=== PATIENT | male | born 1935 | race Caucasian/White ===

== ENCOUNTER → 2016-10-28 | Outpatient (CLI) | payer OTHER ==
[~2016-10-28] MED LIST: ALBUAER INH; CYNI1000 IM; FINA5TAB PO; FLM4 PO; HYD50 PO; KRIL1CAP7 PO; LISI-461 PO; MONT1TAB3 PO; MULT-190 PO; MULTTAB PO; OMEGCAP2 PO; OMEP20TA PO; PLV75 PO; POLYPOW97 PO; PRED1SUS3 OPL; SIMV40TA4 PO; SYMIN INH; TAMS0.4C59 PO; TEMA-79 PO
[2016-10-28 11:37] LABS: THYROID STIMULATING HORMONE 0.796 uIu/ml (0.300-4.500)
== END | disposition home or self-care (01) ==
LOC: C.LAB1850 10:09
PROVIDERS: ATTEND Internal Medicine Endocrinology, Diabetes & Metabolism
DX: E04.1 Nontoxic single thyroid nodule (principal)

== ENCOUNTER → 2016-11-26 | Outpatient (CLI) | payer OTHER ==
--- NOTE | 2016-11-26 14:50 | DIAGNOSTIC IMAGING REPORT ---
LEFT FOOT MIN 3 VIEWS ROUTINE CLINICAL HISTORY: M79.673 Foot pain trauma COMPARISON: None. DISCUSSION: Oblique slightly distracted fracture midshaft fifth metatarsal. Mild degenerative change of all remaining osseous structures. Small heel spur. Moderate soft tissue edema. IMPRESSION: Oblique moderately distracted fracture fifth metatarsal Electronically signed by: Adam John M.D. 11/26/2016 2:48 PM Dictated Date/Time: 11/26/2016 2:47 PM
== END | disposition home or self-care (01) ==
LOC: C.RAD1850 14:24
PROVIDERS: ATTEND Internal Medicine
DX: M79.673 Pain in unspecified foot (principal); S92.352A Displaced fracture of fifth metatarsal bone, left foot, initial encounter for closed fracture; X58.XXXA Exposure to other specified factors, initial encounter

== ENCOUNTER → 2016-12-04 | Outpatient (CLI) | payer OTHER ==
--- NOTE | 2016-12-04 10:48 | DIAGNOSTIC IMAGING REPORT ---
LEFT FOOT MIN 3 VIEWS CLINICAL HISTORY: Left foot pain COMPARISON: 11/26/2016 DISCUSSION: There is no change in the alignment of the oblique/spiral fracture involving the midshaft of the fifth metatarsal. The distal fragment remains medially displaced x 4.3 mm. There is a small plantar calcaneal spur. There are degenerative changes the level the first metatarsal phalangeal joint. IMPRESSION: No change in alignment of the oblique/spiral fracture involving the midshaft of the fifth metatarsal Electronically signed by: Rayshawn Flaherty M.D. 12/04/2016 10:47 AM Dictated Date/Time: 12/04/2016 10:45 AM
== END | disposition home or self-care (01) ==
LOC: C.RDSM 10:35
PROVIDERS: ATTEND Physical Medicine & Rehabilitation Sports Medicine
DX: R52 Pain, unspecified (principal); S92.352A Displaced fracture of fifth metatarsal bone, left foot, initial encounter for closed fracture; X58.XXXA Exposure to other specified factors, initial encounter

== ENCOUNTER → 2016-12-25 | Outpatient (CLI) | payer OTHER ==
--- NOTE | 2016-12-25 11:58 | DIAGNOSTIC IMAGING REPORT ---
LEFT FOOT MIN 3 VIEWS CLINICAL HISTORY: Left foot pain ACTION COMPARISON: 12/04/2016 DISCUSSION: There is an oblique fracture involving the midshaft of the fifth metatarsal. There is no change in alignment when compared the prior study. Maximal fracture distraction is 6.5 mm. There is early callus formation. The bones are osteopenic. Degenerative changes are present the level the first metatarsal phalangeal joint. IMPRESSION: No change in alignment of the oblique fracture of the fifth metatarsal. There is early callus formation. Electronically signed by: Rayshawn Flaherty M.D. 12/25/2016 11:57 AM Dictated Date/Time: 12/25/2016 11:32 AM
== END | disposition home or self-care (01) ==
LOC: C.RDSM 11:00
PROVIDERS: ATTEND Physician Assistant
DX: S92.352A Displaced fracture of fifth metatarsal bone, left foot, initial encounter for closed fracture (principal); X58.XXXA Exposure to other specified factors, initial encounter

== ENCOUNTER → 2017-01-19 | Outpatient (CLI) | payer OTHER ==
[~2017-01-19] MED LIST changes: +CLOP1TAB15 PO; +LVQ750 PO; +PRED10TA PO
--- NOTE | 2017-01-19 14:29 | DIAGNOSTIC IMAGING REPORT ---
LEFT FOOT MIN 3 VIEWS CLINICAL HISTORY: Left foot FX trauma COMPARISON: 12/25/2016 DISCUSSION: Oblique fracture fifth metatarsal. Position is unchanged compared to the prior study. Very subtle increase in callus formation. Degenerative change throughout all remaining osseous structures. Small heel spur. There is no evidence for soft tissue swelling. IMPRESSION: Oblique fracture fifth metatarsal showing partial interval healing from the prior study. Distraction and alignment are unchanged. Electronically signed by: Adam John M.D. 01/19/2017 2:27 PM Dictated Date/Time: 01/19/2017 2:23 PM
== END | disposition home or self-care (01) ==
LOC: C.RDSM 14:04
PROVIDERS: ATTEND Physician Assistant
DX: S92.902A Unspecified fracture of left foot, initial encounter for closed fracture (principal); X58.XXXA Exposure to other specified factors, initial encounter

== ENCOUNTER → 2017-02-17 | Outpatient (CLI) | payer OTHER ==
--- NOTE | 2017-02-17 10:27 | DIAGNOSTIC IMAGING REPORT ---
LEFT FOOT MIN 3 VIEWS CLINICAL HISTORY: Fracture. COMPARISON: 01/19/2017 DISCUSSION: The bones are osteopenic. There is a healing oblique fracture of the midshaft of the fifth metatarsal, unchanged in alignment when compared the preceding study. The fracture continues to demonstrate 8 mm of maximal displacement. No new fractures are visualized. There is a plantar calcaneal spur. IMPRESSION: No change in the alignment of the healing fifth metatarsal fracture. The fracture continues to demonstrate 8 mm of maximal displacement. Electronically signed by: Rayshawn Flaherty M.D. 02/17/2017 10:26 AM Dictated Date/Time: 02/17/2017 10:24 AM
== END | disposition home or self-care (01) ==
LOC: C.RDSM 10:12
PROVIDERS: ATTEND Physician Assistant
DX: S92.352D Displaced fracture of fifth metatarsal bone, left foot, subsequent encounter for fracture with routine healing (principal); X58.XXXD Exposure to other specified factors, subsequent encounter

== ENCOUNTER 2017-05-16 09:24 | Inpatient (IN) | payer OTHER ==
[~2017-05-16] VITALS: Ht 170.2 cm; Wt 67.2 kg
[2017-05-16] MEDS: SODIUM CHLORIDE 0.9% 1000ML 1,000 ML IV SCH ×2 (02:00→13:47)
[~2017-05-16 09:24] MED LIST changes: -CLOP1TAB15 PO; -CYNI1000 IM; -FLM4 PO; -KRIL1CAP7 PO; -LISI-461 PO; -LVQ750 PO; -PLV75 PO; -PRED10TA PO
[2017-05-16] MEDS ORDERED: SODIUM CHLORIDE 0.9% 1000ML 1,000 ML IV SCH (09:28)
--- NOTE | 2017-05-16 09:43 | EMERGENCY ROOM VISIT NOTE ---
History Report prepared by Jose M: Mayra Fan Under the Supervision of: Dr. Avery Prince D.O. First contact with patient: 09:27 Chief Complaint: STROKE SYMPTOMS Stated Complaint: STROKE SYMPTOMS History of Present Illness The patient is a 82 year old male who presents to the Emergency Room with complaints of persistent stroke like symptoms that started around 0830 this morning. He is accompanied by his son and several other family members. His son reports his Mother called him this morning and told him the patient was suddenly "unable to speak and walk normally". She states his speech became "slurred and garbled", he had right sided weakness and a right sided facial droop. The patient denies any pain but complains of dizziness with head movement. He takes no daily blood thinners. His family reports a past history of hypertension. Source of History: patient, family Onset: 0830 this morning Position: other (global) Timing: other (persistent) Associated Symptoms: + weakness (right sided) Review of Systems See HPI for pertinent positives & negatives. A total of 10 systems reviewed and were otherwise negative. Past Medical & Surgical Medical Problems: (1) Facial droop (2) History of prostate cancer (3) Hypertension Social History Smoking Status: Never Smoker Smokeless Tobacco Use: No Alcohol Use: none Drug Use: none Marital Status: Housing Status: lives with family Occupation Status: retired Current/Historical Medications Scheduled Budesonide/Formoterol Fumarate (Symbicort 160-4.5 Mcg/Act), 2 PUFFS INH BID Finasteride (Proscar), 5 MG PO HS Hydrochlorothiazide (Hydrochlorothiazide), 50 MG PO DAILY Krill Oil (Krill Oil [place]-3), 500 MG PO UD Lisinopril (Lisinopril), 10 MG PO DAILY Montelukast Sodium (Singulair), 10 MG PO HS Multivitamins/Minerals (Mvi With Minerals), 1 TAB PO QAM Ocuvite Preservision (Ocuvite Preservision), 1 TAB PO BID Omeprazole (Omeprazole), 20 MG PO QAM Simvastatin (Zocor), 40 MG PO QPM Tamsulosin HCl (Tamsulosin HCl), 0.4 MG PO DAILY Scheduled PRN Albuterol Sulfate (Proventil Hfa), 1 PUFF INH Q4 PRN for Shortness of Breath Allergies Coded Allergies: Sulfa Antibiotics (Verified Allergy, Intermediate, RASH, 07/02/15) Physical Exam Vital Signs Date Time Temp Pulse Resp B/P (MAP) Pulse Ox O2 Delivery O2 Flow Rate FiO2 05/16/17 11:15 64 20 147/65 98 Room Air 05/16/17 11:05 98 Room Air 05/16/17 11:00 78 20 148/80 98 Room Air 05/16/17 10:45 78 16 127/80 98 05/16/17 10:31 72 137/74 98 05/16/17 10:22 72 20 137/71 98 05/16/17 09:57 59 20 132/83 97 05/16/17 09:55 62 05/16/17 09:25 37.0 57 18 143/75 96 Room Air Physical Exam GENERAL: Patient is awake, alert in no acute distress patient is resting comfortably and appears to be mildly anxious EYES: The conjunctivae are clear. The pupils are round and reactive. EARS, NOSE, MOUTH AND THROAT: The nose is without any evidence of any deformity. Mucous membranes are moist tongue is midline NECK: The neck is nontender and supple. No bruits noted to auscultation. RESPIRATORY: Normal respiratory effort is noted there is no evidence of wheezing rhonchi or rales CARDIOVASCULAR: Regular rate and rhythm noted there no murmurs rubs or gallops normal S1 normal S2 GASTROINTESTINAL: The abdomen is soft. Bowel sounds are present in all quadrants. Abdomen is nontender MUSCULOSKELETAL/EXTREMITIES: There is no evidence of gross deformity full range of motion is noted in the hips and shoulders SKIN: There is no obvious evidence of any rash. There are no petechiae, pallor or cyanosis noted. NEUROLOGIC: Patient is awake alert and oriented x3 Speech was pressured and slurred. Right facial droop noted. Patient had weakness in the right upper and right lower extremity. There was a drift in the right upper extremity. The right side was not flaccid. Medical Decision & Procedures ER Provider Diagnostic Interpretation: Radiology results as stated below per my review and radiologist interpretation: HEAD CT NONCONTRAST CT DOSE: 1311.06 mGy.cm HISTORY: Stroke symptoms. TECHNIQUE: Multiaxial CT images of the head were performed without the use of intravenous contrast. Automated exposure control was utilized for this study. A dose lowering technique was utilized adhering to the principles of ALARA. Comparison: None. Findings: Partially visualized retention cyst within the left maxillary sinus. The mastoid air cells are clear. Punctate calcification within the left basal ganglia. The calvarium and skull base are intact. The ventricles and sulci are within normal limits. There is no mass, hematoma, midline shift, or acute infarct. Impression: No acute intracranial abnormality. Electronically signed by: Thony Taylor M.D. 05/16/2017 9:43 AM CHEST ONE VIEW PORTABLE HISTORY: Stroke symptoms. COMPARISON: Chest 03/12/2015. FINDINGS: Stable masslike thickening within the upper right peritracheal location. This favors a thyroid goiter given the long-term stability. Moderate hiatus hernia, unchanged. The heart is normal in size. The lungs remain hyperexpanded. No focal lung consolidations to suggest pneumonia. No evidence for pulmonary edema. Stable linear scarlike density within the left lung apex. IMPRESSION: No significant change compared to the prior study. No acute process. Electronically signed by: Thony Taylor M.D. 05/16/2017 10:19 AM Laboratory Results 05/16/17 09:28 Red Blood Count 4.03, Mean Corpuscular Volume 88.1, Mean Corpuscular Hemoglobin 28.8, Mean Corpuscular Hemoglobin Concent 32.7, Mean Platelet Volume 10.0, Neutrophils (%) (Auto) 45.4, Lymphocytes (%) (Auto) 45.7, Monocytes (%) (Auto) 6.5, Eosinophils (%) (Auto) 1.8, Basophils (%) (Auto) 0.4, Neutrophils # (Auto) 2.58, Lymphocytes # (Auto) 2.59, Monocytes # (Auto) 0.37, Eosinophils # (Auto) 0.10, Basophils # (Auto) 0.02 05/16/17 09:28 Test 05/16/17 09:28 05/16/17 09:53 05/16/17 11:23 White Blood Count 5.67 K/uL (4.8-10.8) Red Blood Count 4.03 M/uL (4.7-6.1) Hemoglobin 11.6 g/dL (14.0-18.0) Hematocrit 35.5 % (42-52) Mean Corpuscular Volume 88.1 fL (80-100) Mean Corpuscular Hemoglobin 28.8 pg (25-34) Mean Corpuscular Hemoglobin Concent 32.7 g/dl (32-36) Platelet Count 177 K/uL (130-400) Mean Platelet Volume 10.0 fL (7.4-10.4) Neutrophils (%) (Auto) 45.4 % Lymphocytes (%) (Auto) 45.7 % Monocytes (%) (Auto) 6.5 % Eosinophils (%) (Auto) 1.8 % Basophils (%) (Auto) 0.4 % Neutrophils # (Auto) 2.58 K/uL (1.4-6.5) Lymphocytes # (Auto) 2.59 K/uL (1.2-3.4) Monocytes # (Auto) 0.37 K/uL (0.11-0.59) Eosinophils # (Auto) 0.10 K/uL (0-0.5) Basophils # (Auto) 0.02 K/uL (0-0.2) RDW Standard Deviation 48.5 fL (36.4-46.3) RDW Coefficient of Variation 14.9 % (11.5-14.5) Immature Granulocyte % (Auto) 0.2 % Immature Granulocyte # (Auto) 0.01 K/uL (0.00-0.02) Prothrombin Time 10.7 SECONDS (9.0-12.0) Prothromb Time International Ratio 1.0 (0.9-1.1) Activated Partial Thromboplast Time 23.3 SECONDS (21.0-31.0) Partial Thromboplastin Ratio 0.9 Anion Gap 6.0 mmol/L (3-11) Est Creatinine Clear Calc Drug Dose 30.2 ml/min Estimated GFR () 42.0 Estimated GFR (Non- 36.2 BUN/Creatinine Ratio 17.8 (10-20) Calcium Level 8.3 mg/dl (8.5-10.1) Total Creatine Kinase 264 U/L (39-308) Creatine Kinase MB 3.5 ng/ml (0.5-3.6) Creatine Kinase MB Ratio 1.3 (0-3.0) Troponin I < 0.015 ng/ml (0-0.045) Bedside Glucose 111 mg/dl (70-99) Laboratory results per my review. Medications Administered Medications (Trade) Dose Ordered Sig/Sonal Route Start Time Stop Time Status Last Admin Dose Admin Sodium Chloride 1,000 ml @ 50 mls/hr Q20H IV 05/16/17 09:28 05/16/17 12:56 DC 05/16/17 10:06 50 MLS/HR Sodium Chloride 1,000 ml @ 999 mls/hr Q1H1M STAT IV 05/16/17 10:30 05/16/17 11:30 DC 05/16/17 10:30 999 MLS/HR Aspirin (Aspirin Chew) 324 mg NOW STAT PO 05/16/17 10:30 05/16/17 10:31 DC 05/16/17 10:30 324 MG Sodium Chloride 1,000 ml @ 80 mls/hr [id number] IV 05/16/17 11:19 06/15/17 11:18 05/16/17 13:47 80 MLS/HR ECG Indication: weakness Rate (beats per minute): 59 Rhythm: sinus bradycardia Findings: 1st degree AV block, other (LVH by voltage criteria, no acute ST segment abnormalities) Change: no significant change (Increased NM interval, otherwise no change from February 12, 2005) ED Course 0928: The patient was evaluated in room A1. A complete history and physical examination were performed. 0928: NSS 1000 ml @ 50 mls/hr IV. 0950: I discussed the patients case with Dr. Pathak, [facility]. The patient will be further evaluated. 1030: Dr. Pathak states the patient is most likely not a TPA candidate. 1030: Aspirin 324 mg PO, NSS 1000 ml @ 999 mls/hr IV. 1035: I discussed the patients case with Dr. Triana, [facility] Hospitalist. The patient will be further evaluated. 1040: I reevaluated the patient. He is resting comfortably and multiple family members are at the bedside. I discussed my recommendation that he remain in the hospital for further evaluation and management and he and his family verbalized complete understanding and agreement. Medical Decision Prior records/ancillary studies reviewed and summarized above. Nursing notes reviewed. Additional history obtained from the patients family. Differential diagnosis: Etiologies such as metabolic, infection, hypo/hyperglycemia, electrolyte abnormalities, cardiac sources, intracerebral event, toxicologic, neurologic, as well as others were entertained. The patient is an 82-year-old male who presented to the emergency department with family members with a physical exam consistent with an acute CVA. The patient arrives through triage. The patient was made a stroke alert immediately. The patient was eating breakfast with his significant other when he started having difficulty moving his right side and she noticed that his speech was garbled. She immediately called her son. The patient arrived at the emergency Department through triage and was placed directly into room A1. The patient's initial CAT scan did not reveal any acute hemorrhagic changes and there is no acute disease noted on the initial CT. We discussed the use of TPA with the patient and his family members and they were agreeable to this however the patient's symptoms started to improve very rapidly. He was reevaluated multiple times. His NIH stroke score significantly improved. For this reason the family members asked me to discuss the case with the tele stroke neurologist who quickly evaluated the patient and agreed that the patient would not be a good candidate for TPA for multiple reasons including his history of cancer in the past. The patient received IV fluids and aspirin in the emergency department. I discussed the patient's laboratory and radiographic studies with him and his family members. I discussed his case with the on-call [facility] hospitalist. They've agreed to evaluate the patient in the emergency department for further management and disposition. Medication Reconcilliation Current Medication List: was personally reviewed by me Blood Pressure Screening Patient's blood pressure: Elevated blood pressure Blood pressure disposition: Elevated BP felt to be situational, Referred to PCP Consults Time Called: 0935 Consulting Physician: Dr. Pathak, [facility] Returned Call: [phone] I discussed the patients case with Dr. Pathak, [facility]. The patient will be further evaluated. Additional Consults: Time Called: 1030 Consulted Physician: Dr. Triana, [facility] Hospitalist Returned Call: [phone] Additional Comments: I discussed the patients case with Dr. Triana [facility] Hospitalist. The patient will be further evaluated. Impression Primary Impression: CVA (cerebral vascular accident) Additional Impression: Dehydration Critical Care I have personally spent greater than 35 minutes of critical care time in the direct management of this patient. This includes bedside care, interpretation of diagnostic studies, and testing, discussion with consultants, patient, and family members, and other required patient management activities. This 35 minutes is in excess of all separately billable procedures. Scribe Attestation The scribe's documentation has been prepared under my direction and personally reviewed by me in its entirety. I confirm that the note above accurately reflects all work, treatment, procedures, and medical decision making performed by me. Departure Information Dispostion Being Evaluated By Hospitalist Referrals Parveen Lopez M.D. (PCP) Patient Instructions My [facility] Problem Qualifiers Primary Impression: CVA (cerebral vascular accident) CVA mechanism: unspecified Qualified Codes: I63.9 - Cerebral infarction, unspecified
[2017-05-16] MEDS ORDERED: SET 2260-0500 IV ONE (09:45)
[2017-05-16] MEDS ORDERED: RECOMBINANT IV SCH ×2 (09:45→10:00)
[2017-05-16] MEDS ORDERED: ALTEPLASE IV SCH ×2 (09:45→10:00)
[2017-05-16 10:03] LABS: BASO % 0.4 %; BASO ABS # 0.02 K/uL (0-0.2); COMPLETE YES; EOS % 1.8 %; HEMATOCRIT 35.5 % (42-52); IG% 0.2 %; LYMPH % 45.7 %; LYMPH ABS # 2.59 K/uL (1.2-3.4); MEAN CELL VOLUME 88.1 fL (80-100); MEAN CORPUSCULAR HEMOGLOBIN 28.8 pg (25-34); MEAN CORPUSCULAR HGB CONC 32.7 g/dl (32-36); MONO % 6.5 %; NEUT % 45.4 %; PLATELET COUNT 177 K/uL (130-400); RED BLOOD COUNT 4.03 M/uL (4.7-6.1); WHITE BLOOD COUNT 5.67 K/uL (4.8-10.8)
[2017-05-16 10:12] LABS: PARTIAL THROMBOPLASTIN RATIO 0.9; PROTHROMBIN TIME (PATIENT) 10.7 SECONDS (9.0-12.0)
[2017-05-16] MEDS ORDERED: KRIL1CAP7 PO (10:17)
[2017-05-16] MEDS ORDERED: FLM4 PO (10:17)
[2017-05-16] MEDS ORDERED: ALBUAER INH (10:17)
[2017-05-16] MEDS ORDERED: LISI-461 PO (10:17)
--- NOTE | 2017-05-16 10:20 | DIAGNOSTIC IMAGING REPORT ---
CHEST ONE VIEW PORTABLE HISTORY: Stroke symptoms. COMPARISON: Chest 03/12/2015. FINDINGS: Stable masslike thickening within the upper right peritracheal location. This favors a thyroid goiter given the long-term stability. Moderate hiatus hernia, unchanged. The heart is normal in size. The lungs remain hyperexpanded. No focal lung consolidations to suggest pneumonia. No evidence for pulmonary edema. Stable linear scarlike density within the left lung apex. IMPRESSION: No significant change compared to the prior study. No acute process. Electronically signed by: Thony Taylor M.D. 05/16/2017 10:19 AM Dictated Date/Time: 05/16/2017 10:18 AM
[2017-05-16 10:23] LABS: BLOOD UREA NITROGEN 30 mg/dl (7-18); BUN/CREATININE RATIO 17.8 (10-20); CALCIUM 8.3 mg/dl (8.5-10.1); CARBON DIOXIDE 30 mmol/L (21-32); CHLORIDE 107 mmol/L (98-107); GLUCOSE 127 mg/dl (70-99); POTASSIUM 3.7 mmol/L (3.5-5.1); SODIUM 143 mmol/L (136-145)
[2017-05-16 10:28] LABS: CKMB/CK RATIO 1.3 (0-3.0)
[2017-05-16] MEDS ORDERED: SODIUM CHLORIDE 0.9% 1000ML 1,000 ML IV STA (10:30)
[2017-05-16] MEDS ORDERED: ASPIRIN 81 MG CHEW PO STA (10:30)
[2017-05-16 11:05] VITALS: O2SAT 98; Ht 170.2 cm; Wt 67.2 kg
[2017-05-16] MEDS ORDERED: MAGNESIUM HYDROXIDE SUSP 30 ML UDC PO PRN (11:30)
[2017-05-16] MEDS ORDERED: IV FLUIDS COMPLETED PRN (11:30)
[2017-05-16] MEDS ORDERED: PHARMACIST DISCHARGE MED REC CONSULT PRN (11:30)
[2017-05-16] MEDS ORDERED: ONDANSETRON INJ 2 MG/ML 2 ML VIAL IV PRN (11:30)
[2017-05-16] MEDS ORDERED: OPTIRAY 320 IV PRN (11:30)
[2017-05-16] MEDS ORDERED: ACETAMINOPHEN 325 MG TAB PO PRN (11:30)
--- NOTE | 2017-05-16 11:58 | History and Physical ---
History & Physical Date & Time of Service: May 16, 2017 at 11:44 Chief Complaint: Stroke Symptoms Primary Care Physician: Parveen Lopez M.D. History of Present Illness Source: patient, family 82 y/o M who was brought to the ED by his family for concern of possible stroke. Pt states he has been in his usual health until around 830am today when he had sudden onset of R sided weakness/numbness and inability to speak clearly with slowed mentation while he was having breakfast. Pt states "my arm and leg was like they were ". He could not pick his arm up or use his leg at all. He felt like his speech was slow and garbled. He alerted his who called his son and his son came to bring him to the ED. He states that prior to the sudden onset of these sx, he had no issues. Yesterday he was able to do all of his usual activities and slept well. Pt states he works outside in his garden all of the time, but drinks no water. "I couldn't tell you the last time I had a glass of water." Pt states he has never had anything like this happen prior. At present, pt states he feels like his R UE/LE are back to their usual. He does still feel like his speech is a bit off and that it is taking him longer to form thoughts and sentences, but this is also improved from [employer]. On arrival, telemed was alerted to determine if tpa was needed, however as sx started to resolve, it was determined that tpa was not indicated. Pt denies fever, SOB, chest pain, abd pain, n/v/c/d, LE pain or swelling. He has been eating well other than breakfast this AM which was an issue due to difficulty using his mouth properly. Past Medical/Surgical History HTN GERD Hyperlipidemia Asthma ?? hx of prostate cancer. Pt states he had multiple elevated PSA levels in the 6-8 range. This lead to bx x2 about 15 yrs ago that were both neg. He follows with Dr. Rosado for this. Hx of renal mass that was tx with robotic cryotherapy Hx of skin cancer, nasal, s/p removal Social History Smoking Status: Never Smoker Smokeless Tobacco Use: No Alcohol Use: none Drug Use: none Marital Status: Occupational Status: retired Immunizations History of Influenza Vaccine: Yes Influenza Vaccine Date: Aug 30, 2013 History of Tetanus Vaccine?: Unknown History of Pneumococcal: Yes History of Hepatitis B Vaccine: No Multi-Drug Resistant Organisms History of MDRO: No Allergies Coded Allergies: Sulfa Antibiotics (Verified Allergy, Intermediate, RASH, 07/02/15) Home Medications Scheduled Budesonide/Formoterol Fumarate (Symbicort 160-4.5 Mcg/Act), 2 PUFFS INH BID Finasteride (Proscar), 5 MG PO HS Hydrochlorothiazide (Hydrochlorothiazide), 50 MG PO DAILY Krill Oil (Krill Oil [place]-3), 500 MG PO UD Lisinopril (Lisinopril), 10 MG PO DAILY Montelukast Sodium (Singulair), 10 MG PO HS Multivitamins/Minerals (Mvi With Minerals), 1 TAB PO QAM Ocuvite Preservision (Ocuvite Preservision), 1 TAB PO BID Omeprazole (Omeprazole), 20 MG PO QAM Simvastatin (Zocor), 40 MG PO QPM Tamsulosin HCl (Tamsulosin HCl), 0.4 MG PO DAILY Scheduled PRN Albuterol Sulfate (Proventil Hfa), 1 PUFF INH Q4 PRN for Shortness of Breath Review of Systems Reviewed and neg Physical Exam Vital Signs Date Time Temp Pulse Resp B/P (MAP) Pulse Ox O2 Delivery O2 Flow Rate FiO2 05/16/17 11:15 64 20 147/65 98 Room Air 05/16/17 11:05 98 Room Air 05/16/17 11:00 78 20 148/80 98 Room Air 05/16/17 10:45 78 16 127/80 98 05/16/17 10:31 72 137/74 98 05/16/17 10:22 72 20 137/71 98 05/16/17 09:57 59 20 132/83 97 05/16/17 09:55 62 05/16/17 09:25 37.0 57 18 143/75 96 Room Air General Appearance: WD/WN, no apparent distress Head: normocephalic, atraumatic Eyes: normal inspection, PERRL, EOMI ENT: hearing grossly normal Neck: supple Respiratory/Chest: normal breath sounds, no respiratory distress Cardiovascular: regular rate, rhythm, no edema, normal peripheral pulses Abdomen/GI: non tender, soft Extremities/Musculoskelatal: no calf tenderness, no pedal edema Neurologic/Psych: 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, alert, normal mood/affect, oriented x 3, + pertinent finding (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, LE strength against resistance 5/5 b/l although very slight weakness in the R) Skin: normal color, warm/dry Diagnostics Laboratory Results Results Past 24 Hours Test 05/16/17 09:28 05/16/17 09:53 05/16/17 11:23 Range/Units White Blood Count 5.67 4.8-10.8 K/uL Red Blood Count 4.03 4.7-6.1 M/uL Hemoglobin 11.6 14.0-18.0 g/dL Hematocrit 35.5 42-52 % Mean Corpuscular Volume 88.1 80-100 fL Mean Corpuscular Hemoglobin 28.8 25-34 pg Mean Corpuscular Hemoglobin Concent 32.7 32-36 g/dl Platelet Count 177 130-400 K/uL Mean Platelet Volume 10.0 7.4-10.4 fL Neutrophils (%) (Auto) 45.4 % Lymphocytes (%) (Auto) 45.7 % Monocytes (%) (Auto) 6.5 % Eosinophils (%) (Auto) 1.8 % Basophils (%) (Auto) 0.4 % Neutrophils # (Auto) 2.58 1.4-6.5 K/uL Lymphocytes # (Auto) 2.59 1.2-3.4 K/uL Monocytes # (Auto) 0.37 0.11-0.59 K/uL Eosinophils # (Auto) 0.10 0-0.5 K/uL Basophils # (Auto) 0.02 0-0.2 K/uL RDW Standard Deviation 48.5 36.4-46.3 fL RDW Coefficient of Variation 14.9 11.5-14.5 % Immature Granulocyte % (Auto) 0.2 % Immature Granulocyte # (Auto) 0.01 0.00-0.02 K/uL Prothrombin Time 10.7 9.0-12.0 SECONDS Prothromb Time International Ratio 1.0 0.9-1.1 Activated Partial Thromboplast Time 23.3 21.0-31.0 SECONDS Partial Thromboplastin Ratio 0.9 Sodium Level 143 136-145 mmol/L Potassium Level 3.7 3.5-5.1 mmol/L Chloride Level 107 98-107 mmol/L Carbon Dioxide Level 30 21-32 mmol/L Anion Gap 6.0 3-11 mmol/L Blood Urea Nitrogen 30 7-18 mg/dl Creatinine 1.70 0.60-1.40 mg/dl Est Creatinine Clear Calc Drug Dose 30.2 ml/min Estimated GFR () 42.0 Estimated GFR (Non- 36.2 BUN/Creatinine Ratio 17.8 10-20 Random Glucose 127 70-99 mg/dl Calcium Level 8.3 8.5-10.1 mg/dl Total Creatine Kinase 264 39-308 U/L Creatine Kinase MB 3.5 0.5-3.6 ng/ml Creatine Kinase MB Ratio 1.3 0-3.0 Troponin I < 0.015 0-0.045 ng/ml Bedside Glucose 111 70-99 mg/dl Diagnostic Radiology CT head neg for acute CXR normal Impression Assessment and Plan 82 y/o M who was admitted for observation on 05/16 for stroke like sx Stroke like sx: CVA vs TIA vs cardiac arrhythmia Likely TIA given quick resolution Slightly nathaniel on presentation, since resolved CT head neg for acute tpa not indication MRI, CTA, ECHO pending TSH, B12, folate, lipids, A1c pending Takes statin at baseline Add aspirin ARF: baseline appears to be around 1.3, likely dehydration given hx of consistent outdoor work with no water intake Will hold lisinopril, and HCTZ for now Hydralazine q6h for now Monitor on IVF HTN: meds as above Asthma: continue home meds GERD: continue home meds Other: Full code, although pt is quite clear that he does not want prolonged mechanical life support. Family is present during this discussion and agrees. 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 Y/N: Yes Risk Level: Low
[2017-05-16] MEDS ORDERED: KRILL OIL 500 MG PO SCH (12:00)
[2017-05-16] MEDS ORDERED: ALBUTEROL HFA 8 GM INHALER INH PRN (12:00)
[2017-05-16 12:13] LABS: URINE APPEARANCE CLEAR (CLEAR); URINE BILIRUBIN NEG (NEG); URINE COLOR YELLOW; URINE NITRITE NEG (NEG); URINE SPECIFIC GRAVITY 1.018 (1.000-1.030); UROBILINOGEN NEG (NEG); ZZUR CULT IF INDIC CLEAN CATCH NO
[2017-05-16 12:18] LABS: MANUAL MICROSCOPIC REQUIRED? NO; REVIEW REQ? NO
--- NOTE | 2017-05-16 12:38 | DIAGNOSTIC IMAGING REPORT ---
HEAD CTA HISTORY: Stroke symptoms. TECHNIQUE: Multiaxial CT images of the head were performed after the intravenous administration of contrast to evaluate the major cerebral vessels. Maximum intensity projection images were also obtained. A dose lowering technique was utilized adhering to the principles of ALARA. COMPARISON: Head CT 05/16/2017. FINDINGS: Visualized intracranial internal carotid arteries, distal vertebral arteries, and basilar artery are widely patent. There is no significant stenosis, occlusion, or aneurysm seen within the bilateral ACAs, MCAs, or adobe developer. IMPRESSION: No significant stenosis, occlusion, or aneurysm within the [place] of [place]. Electronically signed by: Thony Taylor M.D. 05/16/2017 12:36 PM Dictated Date/Time: 05/16/2017 12:32 PM
--- NOTE | 2017-05-16 12:44 | DIAGNOSTIC IMAGING REPORT ---
NECK CTA HISTORY: Stroke like symptoms. TECHNIQUE: Multiaxial CT images of the neck were performed following the intravenous administration of contrast to evaluate the major cervical vessels. Maximum intensity projection images were also obtained. All measurements were calculated based on NASCET criteria. A dose lowering technique was utilized adhering to the principles of ALARA. COMPARISON STUDY: None. FINDINGS: There is a large and heterogeneous thyroid gland consistent with a goiter area this demonstrates substernal extension on the right with left deviation of the trachea. No significant tracheal compression. This goiter results in splaying of the right brachiocephalic and left carotid/subclavian arteries. However, the aortic arch and proximal great vessels are widely patent. There is no significant stenosis, occlusion, or dissection identified within the bilateral common carotid, internal carotid, or vertebral arteries. Minimal calcified plaque within the left carotid bulb. No significant right carotid plaque formation. There is lateral displacement of the left common carotid artery due to the thyroid goiter. There is a partially imaged large bleb within the left upper lobe with an adjacent bandlike area of consolidation. This consolidation favors atelectasis. This is similar dating back to a 2015 chest x-ray IMPRESSION: No significant stenosis, occlusion, or dissection identified within the carotid or vertebral arteries. Large thyroid goiter. Electronically signed by: Thony Taylor M.D. 05/16/2017 12:43 PM Dictated Date/Time: 05/16/2017 12:37 PM
[2017-05-16 13:25] VITALS: BP 144/64; PULSE 73; TEMP 36.8; O2SAT 93
[2017-05-16] MEDS: HydrALAZINE HCL 20 MG/ML VIAL IV. SCH ×2 (13:46→18:00)
[2017-05-16] MEDS ORDERED: LORAZEPAM 2 MG/ML 1 ML VIAL ONE (14:38)
[2017-05-16] MEDS ORDERED: LORAZEPAM 2 MG/ML 1 ML VIAL IV SCH (14:45)
[2017-05-16] MEDS ORDERED: NURSING VERBAL MED ORDER ONE ×2 (14:45→20:15)
[2017-05-16 15:55] VITALS: BP 147/75; PULSE 79; TEMP 36.7; O2SAT 95
--- NOTE | 2017-05-16 16:59 | DIAGNOSTIC IMAGING REPORT ---
MRI OF THE BRAIN WITHOUT AND WITH IV CONTRAST CLINICAL HISTORY: Stroke COMPARISON STUDY: Head CT and CTA of the head May 16, 2017. TECHNIQUE: Utilizing a 1.5 Rakel magnet and dedicated coil, multiplanar, multiecho imaging of the brain was performed pre and postcontrast administration. IV administration of 6.7 mL of Gadavist contrast was uneventful. FINDINGS: This exam is mildly compromised by motion artifact. There is a 1.4 x 0.8 cm focus of mild increased signal within the left anterior aspect of the elizabeth shown on axial image 9 of 46 of the diffusion-weighted sequence. There is corresponding hypointensity on the ADC map. There is at most minimal signal abnormality on the T2-weighted sequence. This suggests an acute to subacute infarct. No acute intracranial hemorrhage, midline shift or mass effect is present. Ventricular system is unremarkable. Basilar cisterns are patent. There are no extra-axial collections. No intracranial mass or pathologic enhancement is identified. A left maxillary sinus mucous retention cyst is noted. Orbits are unremarkable. Flow-voids for the major intracranial vessels are present. IMPRESSION: 1. 1.4 x 0.8 cm focus of mildly increased signal within the left anterior aspect of the elizabeth on the diffusion-weighted sequence which suggests an acute to subacute infarct. No hemorrhage or mass effect. 2. Study mildly compromised by motion artifact. 3. Scattered white matter T2 hyperintense foci suggestive of small vessel disease. Electronically signed by: Nabeel Killian M.D. 05/16/2017 4:58 PM Dictated Date/Time: 05/16/2017 4:51 PM
[2017-05-16] MEDS ORDERED: CLOPIDOGREL BISULFATE 300 MG TAB PO STA (17:08)
[2017-05-16 18:26] VITALS: BP 127/77; PULSE 71; TEMP 36.9; O2SAT 96
[2017-05-16] MEDS: CEROVITE ADV FORMULA TAB PO SCH (20:07)
[2017-05-16] MEDS: SIMVASTATIN 40 MG TAB PO SCH (20:07)
[2017-05-16] MEDS: FINASTERIDE 5 MG TAB PO SCH (20:08)
[2017-05-16] MEDS: MONTELUKAST SOD 10 MG TAB PO SCH (20:08)
[2017-05-16] MEDS: FAMOTIDINE 20 MG TAB PO SCH (20:08)
[2017-05-16] MEDS ORDERED: HydrALAZINE HCL 20 MG/ML VIAL IV. PRN (20:15)
[2017-05-16] MEDS: BUDESONIDE/FORMOTEROL FUMARATE 160/4.5 60 PUFFS/INHALER INH SCH (21:06)
[2017-05-16 23:37] VITALS: BP 159/73; PULSE 62; TEMP 36.7; O2SAT 96
[2017-05-17] VITALS (7 sets, daily range): BP systolic 119–174; BP diastolic 70–90; PULSE 62–95; TEMP 36.8–36.9; O2SAT 95–97
[2017-05-17 06:40] LABS: BASO % 0.5 %; BASO ABS # 0.03 K/uL (0-0.2); COMPLETE YES; EOS % 1.6 %; HEMATOCRIT 39.7 % (42-52); LYMPH % 23.9 %; MEAN CELL VOLUME 86.7 fL (80-100); MEAN CORPUSCULAR HEMOGLOBIN 27.5 pg (25-34); MEAN CORPUSCULAR HGB CONC 31.7 g/dl (32-36); MONO % 7.8 %; NEUT % 66.2 %; PLATELET COUNT 199 K/uL (130-400); RED BLOOD COUNT 4.58 M/uL (4.7-6.1); WHITE BLOOD COUNT 6.27 K/uL (4.8-10.8)
[2017-05-17 06:43] LABS: ESTIMATED AVERAGE GLUCOSE 114 mg/dl; HA1C FLAG Normal (Normal)
[2017-05-17 07:15] LABS: BUN/CREATININE RATIO 13.5 (10-20); CALCIUM 8.9 mg/dl (8.5-10.1); CREATININE 1.4 mg/dl (0.60-1.40); POTASSIUM 3.7 mmol/L (3.5-5.1)
[2017-05-17 07:22] LABS: CHOLESTEROL/HDL RATIO 1.9; THYROID STIMULATING HORMONE 1.55 uIu/ml (0.300-4.500)
[2017-05-17] MEDS ORDERED: CEROVITE ADV FORMULA TAB PO SCH (09:00)
[2017-05-17] MEDS: CEROVITE ADV FORMULA TAB PO SCH ×2 (09:00→20:36)
--- NOTE | 2017-05-17 09:00 | Medical Student: [facility] ---
Med Student History & Physical Date & Time of Service: May 17, 2017 at 08:56 Chief Complaint: Facial Droop Primary Care Physician: Parveen Lopez M.D. History of Present Illness Source: patient, clinic records, hospital records 82 year old male who presented to the ED yesterday with a chief complaint of right sided weakness and speech changes. He states that when he woke up he was feeling fine and then a hour or so later sat down to eat breakfast when he felt dizzy and unable to move his right arm. He tried to get up but was unable to move his right leg. Then tried to call out to his but was unable to get his words out. He denies any numbness, tingling, pain, or loss of sensation anywhere. He has not been sick recently and has never had any such symptoms before. He denies any vision changes, hearing loss, fever, chills, nausea, vomiting, loss of consciousness, or weight loss. He is currently being treated for hypertension and states that they just changed his medications but he is following his regimen. Patient is right handed. Today his symptoms have improved but he is still unable to extend or use his wrist and still has some over all weakness in upper & lower extremities as well as face. He still has some dysarthria, although he states that it is better today than yesterday. Past Medical/Surgical History Past Medical History: (1) CVA (cerebral vascular accident) Status: Acute (2) Hypertension Status: Chronic (3) GERD Status: Chronic (4) Hyperlipidemia Status: Chronic (5) Asthma Status: Chronic Past Surgical History: Robotic Cryotherapy for renal mass removal Removal of nasal skin cancer Family History Mother at 90 and Father at 91. Neither had any medical conditions. No significant family history in siblings or children. 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 He denies any history of smoking, alcohol, or recreational drug use. Patient lives with his . Smoking Status: Never Smoker Smokeless Tobacco Use: No Alcohol Use: none Drug Use: none Marital Status: Occupational Status: retired Immunizations History of Influenza Vaccine: Yes Influenza Vaccine Date: Aug 30, 2013 History of Tetanus Vaccine?: Unknown History of Pneumococcal: Yes History of Hepatitis B Vaccine: No Allergies Coded Allergies: Sulfa Antibiotics (Verified Allergy, Intermediate, RASH, 9/29/15) Medications Albuterol Sulfate (Proventil Hfa), 1 PUFF INH Q4 PRN for Shortness of Breath Budesonide/Formoterol Fumarate (Symbicort 160-4.5 Mcg/Act), 2 PUFFS INH BID Finasteride (Proscar), 5 MG PO HS Hydrochlorothiazide (Hydrochlorothiazide), 50 MG PO DAILY Krill Oil (Krill Oil Leonardo-3), 500 MG PO UD Lisinopril (Lisinopril), 10 MG PO DAILY Montelukast Sodium (Singulair), 10 MG PO HS Multivitamins/Minerals (Mvi With Minerals), 1 TAB PO QAM Ocuvite Preservision (Ocuvite Preservision), 1 TAB PO BID Omeprazole (Omeprazole), 20 MG PO QAM Simvastatin (Zocor), 40 MG PO QPM Tamsulosin HCl (Tamsulosin HCl), 0.4 MG PO DAILY Review of Systems Constitutional: No fever, No chills, No sweats, No weight loss Eyes: No worsening of vision ENT: No hearing loss Respiratory: No shortness of breath Cardiovascular: No chest pain Abdomen: No pain, No nausea, No vomiting Neurologic: + paralysis (Right upper & lower extremity, right face), + weakness (Right upper & lower extremity, Right face), No memory loss, No numbness/ tingling Physical Exam Vital Signs (24 Hours) Date Time Temp Pulse Resp B/P (MAP) Pulse Ox O2 Delivery O2 Flow Rate FiO2 05/17/17 07:42 36.8 72 19 157/72 (100) 95 Room Air 05/17/17 04:10 36.9 62 18 156/78 (104) 95 Room Air 05/17/17 04:00 Room Air 05/16/17 23:59 Room Air 05/16/17 23:37 36.7 62 20 159/73 (101) 96 Room Air 05/16/17 20:00 Room Air 05/16/17 18:26 36.9 71 20 127/77 (94) 96 05/16/17 16:00 Room Air 05/16/17 15:55 36.7 79 18 147/75 (99) 95 Room Air 05/16/17 13:25 36.8 73 18 144/64 (90) 93 Room Air 05/16/17 12:10 74 05/16/17 11:45 80 18 142/69 99 Room Air 05/16/17 11:15 64 20 147/65 98 Room Air 05/16/17 11:05 98 Room Air 05/16/17 11:00 78 20 148/80 98 Room Air 05/16/17 10:45 78 16 127/80 98 05/16/17 10:31 72 137/74 98 05/16/17 10:22 72 20 137/71 98 05/16/17 09:57 59 20 132/83 97 05/16/17 09:55 62 05/16/17 09:25 37.0 57 18 143/75 96 Room Air General Appearance: WD/WN, no apparent distress Head: normocephalic, atraumatic Eyes: PERRL Respiratory/Chest: lungs clear Cardiovascular: regular rate, rhythm Neurologic/Psych: alert, oriented x 3, + abnormal cerebellar tests, + abnormal data processing specialist II-XII, + facial droop, + motor weakness Neurological Exam: Mental Status Patient is oriented to person, place, and time. He is alert and able to follow commands and answer questions. Cranial Nerves CN I- Not tested CN II-Visual mccain are intact, PERRL. Funduscopic exam is unremarkable. CN III, IV, -extraocular movements are intact CN V-facial sensation intact in frontal, maxillary, and mandibular area CN VII-There is slight facial droop in the right lip area. CN VIII-hearing intact bilaterally CN IX, X-palate raises symmetrically when he says "ah" CN XI-able to shrug shoulders and turn head against resistance. CN XII-tongue protrudes to midline and can push against resistance. Sensory Able to feel touch and temperature bilaterally in both upper and lower extremities vibration intact bilaterally in both upper and lower extremities Motor 5/5 left upper extremity 3/5 right upper extremity (proximal muscles) and 2/5 distal muscles 5/5 left lower extremity 3/5 right lower extremity Reflex: R Brachioradialis: 3+ L Brachioradialis: 2+ R Biceps: 3+ L Biceps: 2+ R Triceps: 3+ L Triceps: 2+ R Patellar: 3+ L Patellar: 2+ R Achilles: 3+ L Achilles: 2+ Babinski: absent bilaterally Cerebellar Right heel to rodriges displayed some dysmetria. Right finger to nose displayed bradykinesia and dysmetria Left finger to finger to nose and heel to rodriges was normal. Unable to do rapid alternating movements on the right but normal on the left. Gait not tested due to patient not being ambulatory. Diagnostics Laboratory Results Results Past 24 Hours Test 05/16/17 09:28 05/16/17 09:53 05/16/17 12:03 05/16/17 17:41 Range/Units White Blood Count 5.67 4.8-10.8 K/uL Red Blood Count 4.03 4.7-6.1 M/uL Hemoglobin 11.6 14.0-18.0 g/dL Hematocrit 35.5 42-52 % Mean Corpuscular Volume 88.1 80-100 fL Mean Corpuscular Hemoglobin 28.8 25-34 pg Mean Corpuscular Hemoglobin Concent 32.7 32-36 g/dl Platelet Count 177 130-400 K/uL Mean Platelet Volume 10.0 7.4-10.4 fL Neutrophils (%) (Auto) 45.4 % Lymphocytes (%) (Auto) 45.7 % Monocytes (%) (Auto) 6.5 % Eosinophils (%) (Auto) 1.8 % Basophils (%) (Auto) 0.4 % Neutrophils # (Auto) 2.58 1.4-6.5 K/uL Lymphocytes # (Auto) 2.59 1.2-3.4 K/uL Monocytes # (Auto) 0.37 0.11-0.59 K/uL Eosinophils # (Auto) 0.10 0-0.5 K/uL Basophils # (Auto) 0.02 0-0.2 K/uL RDW Standard Deviation 48.5 36.4-46.3 fL RDW Coefficient of Variation 14.9 11.5-14.5 % Immature Granulocyte % (Auto) 0.2 % Immature Granulocyte # (Auto) 0.01 0.00-0.02 K/uL Prothrombin Time 10.7 9.0-12.0 SECONDS Prothromb Time International Ratio 1.0 0.9-1.1 Activated Partial Thromboplast Time 23.3 21.0-31.0 SECONDS Partial Thromboplastin Ratio 0.9 Sodium Level 143 136-145 mmol/L Potassium Level 3.7 3.5-5.1 mmol/L Chloride Level 107 98-107 mmol/L Carbon Dioxide Level 30 21-32 mmol/L Anion Gap 6.0 3-11 mmol/L Blood Urea Nitrogen 30 7-18 mg/dl Creatinine 1.70 0.60-1.40 mg/dl Est Creatinine Clear Calc Drug Dose 30.2 ml/min Estimated GFR () 42.0 Estimated GFR (Non- 36.2 BUN/Creatinine Ratio 17.8 10-20 Random Glucose 127 70-99 mg/dl Calcium Level 8.3 8.5-10.1 mg/dl Total Creatine Kinase 264 39-308 U/L Creatine Kinase MB 3.5 0.5-3.6 ng/ml Creatine Kinase MB Ratio 1.3 0-3.0 Troponin I < 0.015 < 0.015 0-0.045 ng/ml Bedside Glucose 111 70-99 mg/dl Urine Color YELLOW Urine Appearance CLEAR CLEAR Urine pH 7.0 4.5-7.5 Urine Specific [place] 1.018 1.000-1.030 Urine Protein NEG NEG Urine Glucose (UA) NEG NEG Urine Ketones NEG NEG Urine Occult Blood NEG NEG Urine Nitrite NEG NEG Urine Bilirubin NEG NEG Urine Urobilinogen NEG NEG Urine Leukocyte Esterase NEG NEG Vitamin B12 Level 308 211-911 pg/mL Folate > 24.00 >5.38 ng/mL Test 05/17/17 01:18 05/17/17 06:22 Range/Units Troponin I < 0.015 0-0.045 ng/ml White Blood Count 6.27 4.8-10.8 K/uL Red Blood Count 4.58 4.7-6.1 M/uL Hemoglobin 12.6 14.0-18.0 g/dL Hematocrit 39.7 42-52 % Mean Corpuscular Volume 86.7 80-100 fL Mean Corpuscular Hemoglobin 27.5 25-34 pg Mean Corpuscular Hemoglobin Concent 31.7 32-36 g/dl Platelet Count 199 130-400 K/uL Mean Platelet Volume 10.0 7.4-10.4 fL Neutrophils (%) (Auto) 66.2 % Lymphocytes (%) (Auto) 23.9 % Monocytes (%) (Auto) 7.8 % Eosinophils (%) (Auto) 1.6 % Basophils (%) (Auto) 0.5 % Neutrophils # (Auto) 4.15 1.4-6.5 K/uL Lymphocytes # (Auto) 1.50 1.2-3.4 K/uL Monocytes # (Auto) 0.49 0.11-0.59 K/uL Eosinophils # (Auto) 0.10 0-0.5 K/uL Basophils # (Auto) 0.03 0-0.2 K/uL RDW Standard Deviation 47.4 36.4-46.3 fL RDW Coefficient of Variation 14.8 11.5-14.5 % Immature Granulocyte % (Auto) 0.0 % Immature Granulocyte # (Auto) 0.00 0.00-0.02 K/uL Sodium Level 144 136-145 mmol/L Potassium Level 3.7 3.5-5.1 mmol/L Chloride Level 110 98-107 mmol/L Carbon Dioxide Level 26 21-32 mmol/L Anion Gap 8.0 3-11 mmol/L Blood Urea Nitrogen 19 7-18 mg/dl Creatinine 1.40 0.60-1.40 mg/dl Est Creatinine Clear Calc Drug Dose 36.7 ml/min Estimated GFR () 53.1 Estimated GFR (Non- 45.8 BUN/Creatinine Ratio 13.5 10-20 Random Glucose 87 70-99 mg/dl Estimated Average Glucose 114 mg/dl Hemoglobin A1c 5.6 4.5-5.6 % Calcium Level 8.9 8.5-10.1 mg/dl Triglycerides Level 104 0-150 mg/dl Cholesterol Level 185 0-200 mg/dl HDL Cholesterol 99 mg/dl LDL Cholesterol, Calculated 65 mg/dl VLDL Cholesterol, Calculated 21 mg/dl Cholesterol/HDL Ratio 1.9 Thyroid Stimulating Hormone (TSH) 1.550 0.300-4.500 uIu/ml Diagnostic Radiology MRI: 1. Infarct to the left basilar pontine area. 2. Evidence of small vessel disease CT Head: unremarkable, no acute changes CTA of the neck: unremarkable CTA of the Neck: No significant vessel stenosis, occlusion, or dissection. Large thyroid goiter. CXR normal Impression Assessment and Plan Assessment: Right hemiparesis and dysarthria 82 year old male with chronic hypertension presents with right sided hemiparesis and dysarthria. Although he displays motor weakness of the right face, lower extremities, and arm, his right distal limb seems to be the worse. 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 MRI of the head shows a hyperdensity in the left anterior/basilar elizabeth that is consistent with an acute ischemic attack to the elizabeth. A pontine lacunar stroke explains the pure motor clinical findings displayed by this patient. In particular, this patient seems to display more weakness in the distal upper extremity and prominent dysarthria which is consistent with a dysarthria-clumsy hand syndrome, a type of lacunar stroke syndrome. Plan: 1. Start patient on antiplatelet therapy. Can continue him on Plavix or switch to Aspirin. 2. follow up with PCP for monitoring of high blood pressure. Advanced Directives Existing Living Will: Yes Existing Power of Environmental Health And Safety Manager: Yes ([place] SON)
--- NOTE | 2017-05-17 09:06 | Neurology Consultation ---
Neurology Consultation Date of Consultation: May 17, 2017. Attending Physician: Mandy Vargas DO Primary Care Physician: Parveen Lopez M.D. Reason for Consultation: Stroke History of Present Illness Source: patient, hospital records The patient is an 82-year-old male who complains of right-sided weakness and slurred speech that began acutely yesterday morning. The symptoms fluctuated a bit, before becoming more persistent. He continues to report difficulty with speech but no associated problem with word finding or comprehension. He continues to report weakness of the right hand, especially wrist and finger extensors. He denies any associated change in vision or sensory loss. He denies vertigo. I reviewed the images and radiologist's interpretation of the recently completed brain MRI. The study reveals an area of restricted diffusion within the left anterior ruth-elizabeth consistent with an acute infarct. CT angiography of the head and neck unremarkable, he does have a large goiter. Electrocardiogram reveals sinus bradycardia with first-degree AV block, 59 bpm. Labs including a CBC, comprehensive metabolic panel, TSH, cardiac enzymes unremarkable. Past Medical/Surgical History Medical Problems: (1) CVA (cerebral vascular accident) Status: Acute (2) Dehydration Status: Acute Family History Noncontributory given advanced age Social History Smokeless Tobacco Use: No Alcohol Use: none Drug Use: none Marital Status: Housing Status: lives with family Occupation Status: retired Allergies Coded Allergies: Sulfa Antibiotics (Verified Allergy, Intermediate, RASH, 07/02/15) Current Inpatient Medications Current Inpatient Medications Medications (Trade) Dose Ordered Sig/Sonal Route Start Time Stop Time Status Last Admin Dose Admin Miscellaneous Information (Pharmacist Discharge Med Rec Consult) 1 ea UD PRN N/A 05/16/17 11:30 06/15/17 11:29 Sodium Chloride 1,000 ml @ 80 mls/hr [id number] IV 05/16/17 11:19 06/15/17 11:18 05/16/17 02:00 80 MLS/HR Acetaminophen (Tylenol Tab) 650 mg Q4H PRN PO 05/16/17 11:30 06/15/17 11:29 Magnesium Hydroxide (Milk Of Magnesia Susp) 30 ml Q12H PRN PO 05/16/17 11:30 06/15/17 11:29 Ondansetron HCl (Zofran Inj) 4 mg Q6H PRN IV 05/16/17 11:30 06/15/17 11:29 Ioversol (Optiray 320) 100 ml UD PRN IV 05/16/17 11:30 05/20/17 11:29 Miscellaneous (Iv Fluids Completed) 1 ea PRN PRN N/A 05/16/17 11:30 05/16/18 11:29 Albuterol (Ventolin Hfa Inhaler) 1 puffs Q4 PRN INH 05/16/17 12:00 06/15/17 11:59 Budesonide/ Formoterol Fumarate (Symbicort 160/ 4.5 Inh) 2 puffs BID INH 05/16/17 21:00 06/15/17 20:59 05/16/17 21:06 2 PUFFS Finasteride (Proscar Tab) 5 mg HS PO 05/16/17 21:00 06/15/17 20:59 Montelukast Sodium (Singulair Tab) 10 mg HS PO 05/16/17 21:00 06/15/17 20:59 Multivitamins/ Minerals (Multivitamin W/ Minerals Tab) 1 tab BID PO 05/16/17 21:00 06/15/17 20:59 Simvastatin (Zocor Tab) 40 mg QPM PO 05/16/17 21:00 06/15/17 20:59 Tamsulosin HCl (Flomax Cap) 0.4 mg DAILY PO 05/17/17 09:00 06/16/17 08:59 Pantoprazole Sodium (Protonix Tab) 40 mg QAM PO 05/17/17 09:00 06/16/17 08:59 Famotidine (Pepcid Tab) 20 mg BID PO 05/16/17 21:00 06/15/17 20:59 Clopidogrel Bisulfate (plAVix TAB) 75 mg QAM PO 05/17/17 09:00 06/16/17 08:59 Hydralazine HCl (HydrALAZINE INJ) 5 mg Q6 PRN IV. 05/16/17 20:15 06/15/17 20:14 Cyanocobalamin (Vitamin B-12 Inj) 1,000 mcg DAILY IM 05/17/17 09:00 05/22/17 08:59 Review of Systems Constitutional: No fevers or chills Cardiovascular: No chest pain or palpitations Neurological: As per history of present illness Musculoskeletal: No arthralgias or myalgias A full 10 point review of systems was obtained from this patient with pertinent positives and negatives obtained in the history of present illness all other systems reviewed and are negative. Physical Exam Vital Signs (Past 24 Hrs): Date Time Temp Pulse Resp B/P (MAP) Pulse Ox O2 Delivery O2 Flow Rate FiO2 05/17/17 07:42 36.8 72 19 157/72 (100) 95 Room Air 05/17/17 04:10 36.9 62 18 156/78 (104) 95 Room Air 05/17/17 04:00 Room Air 05/16/17 23:59 Room Air 05/16/17 23:37 36.7 62 20 159/73 (101) 96 Room Air 05/16/17 20:00 Room Air 05/16/17 18:26 36.9 71 20 127/77 (94) 96 05/16/17 16:00 Room Air 05/16/17 15:55 36.7 79 18 147/75 (99) 95 Room Air 05/16/17 13:25 36.8 73 18 144/64 (90) 93 Room Air 05/16/17 12:10 74 05/16/17 11:45 80 18 142/69 99 Room Air 05/16/17 11:15 64 20 147/65 98 Room Air 05/16/17 11:05 98 Room Air 05/16/17 11:00 78 20 148/80 98 Room Air 05/16/17 10:45 78 16 127/80 98 05/16/17 10:31 72 137/74 98 05/16/17 10:22 72 20 137/71 98 05/16/17 09:57 59 20 132/83 97 05/16/17 09:55 62 05/16/17 09:25 37.0 57 18 143/75 96 Room Air The patient is a well-developed, well-nourished elderly male in no acute distress. He is attentive with normal concentration. He exhibits moderately dysarthric speech. He is able to name and repeat. Age-appropriate fund of knowledge. Normal vocabulary. Visual mccain full to confrontation. Visual acuity normal. Pupils equal round reactive to light and accommodation. Eye movements normal. Facial sensation intact bilaterally. There is a mild to moderate right facial droop noted. Palate elevates to midline. Tongue protrudes to midline. There is slight weakness of shoulder shrug strength on the right. Hearing intact. Sensation intact to light touch, temperature, vibration, and proprioception for all 4 limbs. Deep tendon reflexes are slightly increased for the right arm and leg, normoactive for the left arm and leg. Plantar responses equivocal. There is mild dysmetria with finger to nose and heel to rodriges on the right. No dysmetria for finger to nose or heel to rodriges on the left. Ophthalmoscopic examination reveals normal-appearing optic disks and posterior segments. No papilledema or hemorrhages. Carotid pulses normal bilaterally, no bruits to auscultation. Gait and station not tested due to safety concerns. There is very mild weakness of the right arm and leg with direct muscle strength testing. Strength for the left arm and leg normal. There is a moderate right wrist drop with associated weakness of right finger extensors and intrinsic hand muscles. Muscle tone is normal throughout. No atrophy. No abnormal movements appreciated. Laboratory Results Past 24 Hours: 05/17/17 06:22 Red Blood Count 4.58, Mean Corpuscular Volume 86.7, Mean Corpuscular Hemoglobin 27.5, Mean Corpuscular Hemoglobin Concent 31.7, Mean Platelet Volume 10.0, Neutrophils (%) (Auto) 66.2, Lymphocytes (%) (Auto) 23.9, Monocytes (%) (Auto) 7.8, Eosinophils (%) (Auto) 1.6, Basophils (%) (Auto) 0.5, Neutrophils # (Auto) 4.15, Lymphocytes # (Auto) 1.50, Monocytes # (Auto) 0.49, Eosinophils # (Auto) 0.10, Basophils # (Auto) 0.03 05/17/17 06:22 Test 05/16/17 09:28 05/16/17 09:53 05/16/17 12:03 05/16/17 17:41 Prothrombin Time 10.7 SECONDS (9.0-12.0) Prothromb Time International Ratio 1.0 (0.9-1.1) Activated Partial Thromboplast Time 23.3 SECONDS (21.0-31.0) Partial Thromboplastin Ratio 0.9 Total Creatine Kinase 264 U/L (39-308) Creatine Kinase MB 3.5 ng/ml (0.5-3.6) Creatine Kinase MB Ratio 1.3 (0-3.0) Bedside Glucose 111 mg/dl (70-99) Urine Color YELLOW Urine Appearance CLEAR (CLEAR) Urine pH 7.0 (4.5-7.5) Urine Specific [place] 1.018 (1.000-1.030) Urine Protein NEG (NEG) Urine Glucose (UA) NEG (NEG) Urine Ketones NEG (NEG) Urine Occult Blood NEG (NEG) Urine Nitrite NEG (NEG) Urine Bilirubin NEG (NEG) Urine Urobilinogen NEG (NEG) Urine Leukocyte Esterase NEG (NEG) Vitamin B12 Level 308 pg/mL (211-911) Folate > 24.00 ng/mL (>5.38) Test 05/17/17 01:18 05/17/17 06:22 Troponin I < 0.015 ng/ml (0-0.045) White Blood Count 6.27 K/uL (4.8-10.8) Red Blood Count 4.58 M/uL (4.7-6.1) Hemoglobin 12.6 g/dL (14.0-18.0) Hematocrit 39.7 % (42-52) Mean Corpuscular Volume 86.7 fL (80-100) Mean Corpuscular Hemoglobin 27.5 pg (25-34) Mean Corpuscular Hemoglobin Concent 31.7 g/dl (32-36) Platelet Count 199 K/uL (130-400) Mean Platelet Volume 10.0 fL (7.4-10.4) Neutrophils (%) (Auto) 66.2 % Lymphocytes (%) (Auto) 23.9 % Monocytes (%) (Auto) 7.8 % Eosinophils (%) (Auto) 1.6 % Basophils (%) (Auto) 0.5 % Neutrophils # (Auto) 4.15 K/uL (1.4-6.5) Lymphocytes # (Auto) 1.50 K/uL (1.2-3.4) Monocytes # (Auto) 0.49 K/uL (0.11-0.59) Eosinophils # (Auto) 0.10 K/uL (0-0.5) Basophils # (Auto) 0.03 K/uL (0-0.2) RDW Standard Deviation 47.4 fL (36.4-46.3) RDW Coefficient of Variation 14.8 % (11.5-14.5) Immature Granulocyte % (Auto) 0.0 % Immature Granulocyte # (Auto) 0.00 K/uL (0.00-0.02) Anion Gap 8.0 mmol/L (3-11) Est Creatinine Clear Calc Drug Dose 36.7 ml/min Estimated GFR () 53.1 Estimated GFR (Non- 45.8 BUN/Creatinine Ratio 13.5 (10-20) Estimated Average Glucose 114 mg/dl Hemoglobin A1c 5.6 % (4.5-5.6) Calcium Level 8.9 mg/dl (8.5-10.1) Triglycerides Level 104 mg/dl (0-150) Cholesterol Level 185 mg/dl (0-200) HDL Cholesterol 99 mg/dl LDL Cholesterol, Calculated 65 mg/dl VLDL Cholesterol, Calculated 21 mg/dl Cholesterol/HDL Ratio 1.9 Thyroid Stimulating Hormone (TSH) 1.550 uIu/ml (0.300-4.500) Impression Acute ischemic stroke localizing to the left anterior ruth-elizabeth producing dysarthria and a right hemiparesis, predominantly affecting the distal right upper extremity extensors and intrinsic hand musculature. Clinically, this patient has clumsy hand dysarthria lacunar stroke syndrome. Plan Continue Plavix 75 mg per day. Outpatient follow-up with his primary care physician for ongoing management of hypertension and dyslipidemia. PT/OT/speech therapy. No further recommendations at this time.
--- NOTE | 2017-05-17 10:13 | Clinical Documentation Query ---
Dr. RUIZ JUAN : CLINICAL DOCUMENTATION QUERY Patient is an 82 year old male admitted with concerns of possible stroke. H&P notes: "ARF: baseline appears to be around 1.3, likely dehydration given hx of consistent outdoor work with no water intake Will hold lisinopril, and HCTZ for now Hydralazine q6h for now Monitor on IVF" Estimated GFR range 36-51 ml/min from 03/12/15 to present. Please clarify as clinically appropriate. In your clinical opinion is this patient being managed for: ( ) Chronic kidney disease, stage 3 (moderate) ( ) Other explanation of clinical findings (Please Explain) ( ) Unable to determine (Please Define) ( ) Need to Discuss ( x ) Not Agree-pt is in acute renal failure, no hx of CKD The medical record reflects the following clinical findings, treatment, and risk factors. Clinical Indicators: As above Treatment: As above Risk Factors: Age, hypertension Please clarify and document your clinical opinion in the progress notes and discharge summary. Terms such as "probable", "suspected", "likely", "questionable", "possible", or "still to be ruled out" are acceptable. IF IN AGREEMENT, YOU MUST DOCUMENT ABOVE DIAGNOSTIC STATEMENT IN DAILY PROGRESS NOTES AND DISCHARGE SUMMARY. This document is not part of the patient's record. Thank You, David Curiel, GIGI [phone]
[2017-05-17] MEDS: BUDESONIDE/FORMOTEROL FUMARATE 160/4.5 60 PUFFS/INHALER INH SCH ×2 (10:21→20:35)
[2017-05-17] MEDS: CYANOCOBALAMIN 1000 MCG/ML VIAL IM SCH (10:21)
[2017-05-17] MEDS: CLOPIDOGREL BISULFATE 75 MG TAB PO SCH (10:59)
[2017-05-17] MEDS: FAMOTIDINE 20 MG TAB PO SCH ×2 (10:59→20:35)
[2017-05-17] MEDS: TAMSULOSIN HCL 0.4 MG CAP PO SCH (10:59)
[2017-05-17] MEDS: PANTOprazole SOD 40 MG TAB PO SCH (11:00)
--- NOTE | 2017-05-17 11:32 | Medical Student: [facility] ---
Med Student Progress Note Date of Service May 17, 2017. Subjective Pt evaluation today including: conversation w/ patient, conversation w/ family , physical exam, chart review, lab review, review of studies Voiding: no voiding problems Patient examined sitting in chair. He reports that his right arm weakness/ flaccidity has increased since yesterday. He and his family believe his speech has improved and that he is slurring less. Denies headache, dizziness, vision changes, chest pain, palpitations, shortness of breath, n/v/d, numbness/tingling , or calf pain. He is motivated to go to inpatient rehab. Review of Systems Constitutional: No fever, No chills Eyes: No worsening of vision, No diplopia ENT: No sore throat, No trouble swallowing Respiratory: No cough, No shortness of breath Cardiac: No chest pain, No palpitations Abdomen: No pain, No nausea, No vomiting, No diarrhea Musculoskeletal: No joint pain, No calf pain Male : No dysuria, No incontinence Neurologic: + weakness, No numbness/tingling Objective Vital Signs Date Time Temp Pulse Resp B/P (MAP) Pulse Ox O2 Delivery O2 Flow Rate FiO2 05/17/17 09:40 88 96 05/17/17 08:00 Room Air 05/17/17 07:42 36.8 72 19 157/72 (100) 95 Room Air 05/17/17 04:10 36.9 62 18 156/78 (104) 95 Room Air 05/17/17 04:00 Room Air 05/16/17 23:59 Room Air 05/16/17 23:37 36.7 62 20 159/73 (101) 96 Room Air 05/16/17 20:00 Room Air 05/16/17 18:26 36.9 71 20 127/77 (94) 96 05/16/17 16:00 Room Air 05/16/17 15:55 36.7 79 18 147/75 (99) 95 Room Air 05/16/17 13:25 36.8 73 18 144/64 (90) 93 Room Air 05/16/17 12:10 74 05/16/17 11:45 80 18 142/69 99 Room Air Physical Exam General Appearance: WD/WN, + mild distress Eyes: bilateral eyes normal inspection, bilateral eyes PERRL, bilateral eyes EOMI ENT: hearing grossly normal, pharynx normal Neck: supple, no carotid bruits Respiratory/Chest: lungs clear, normal breath sounds, no respiratory distress, no accessory muscle use Cardiovascular: regular rate, rhythm, no gallop, no murmur Abdomen: normal bowel sounds, non tender, soft Extremities: normal range of motion, no calf tenderness, normal capillary refill Neurologic/Psychiatric: alert, normal mood/affect, oriented x 3 Skin: normal color, warm/dry Comments: Cranial nerves II: visual mccain full III, IV, : PERRLA, EOMI V: sensation intact in V1, V2, V3 VII: R-side facial droop, non-symmetric eyebrow raise and smile VIII: grossly intact IX, X: normal-appearing swallow XI: shoulder shrug and lateral head rotation are symmetric and strong XII: tongue protrudes in the midline, no fasciculations Strength: LUE 5/5 throughout, LLE 5/5 throughout, RUE 3/5 biceps, 3/5 triceps, 0 /5 wrist extensors, 0/5 finger intrinsics, RLE 4/5 throughout Sensation: intact to pinprick and light touch BUE and BLE Reflexes: 2+ biceps, triceps, brachioradialis, patellar reflexes bilaterally, 1 + Achilles reflexes bilaterally, Babinski is downgoing bilaterally Cerebellum: normal RUE finger to nose, LUE not tested, normal heel to rodriges bilaterally Gait: not tested Laboratory Results Last 24 Hours Test 05/16/17 12:03 05/16/17 17:41 05/17/17 01:18 05/17/17 06:22 Urine Color YELLOW Urine Appearance CLEAR Urine pH 7.0 Urine Specific [place] 1.018 Urine Protein NEG Urine Glucose (UA) NEG Urine Ketones NEG Urine Occult Blood NEG Urine Nitrite NEG Urine Bilirubin NEG Urine Urobilinogen NEG Urine Leukocyte Esterase NEG Troponin I < 0.015 ng/ml < 0.015 ng/ml Vitamin B12 Level 308 pg/mL Folate > 24.00 ng/mL White Blood Count 6.27 K/uL Red Blood Count 4.58 M/uL Hemoglobin 12.6 g/dL Hematocrit 39.7 % Mean Corpuscular Volume 86.7 fL Mean Corpuscular Hemoglobin 27.5 pg Mean Corpuscular Hemoglobin Concent 31.7 g/dl Platelet Count 199 K/uL Mean Platelet Volume 10.0 fL Neutrophils (%) (Auto) 66.2 % Lymphocytes (%) (Auto) 23.9 % Monocytes (%) (Auto) 7.8 % Eosinophils (%) (Auto) 1.6 % Basophils (%) (Auto) 0.5 % Neutrophils # (Auto) 4.15 K/uL Lymphocytes # (Auto) 1.50 K/uL Monocytes # (Auto) 0.49 K/uL Eosinophils # (Auto) 0.10 K/uL Basophils # (Auto) 0.03 K/uL RDW Standard Deviation 47.4 fL RDW Coefficient of Variation 14.8 % Immature Granulocyte % (Auto) 0.0 % Immature Granulocyte # (Auto) 0.00 K/uL Sodium Level 144 mmol/L Potassium Level 3.7 mmol/L Chloride Level 110 mmol/L Carbon Dioxide Level 26 mmol/L Anion Gap 8.0 mmol/L Blood Urea Nitrogen 19 mg/dl Creatinine 1.40 mg/dl Est Creatinine Clear Calc Drug Dose 36.7 ml/min Estimated GFR () 53.1 Estimated GFR (Non- 45.8 BUN/Creatinine Ratio 13.5 Random Glucose 87 mg/dl Estimated Average Glucose 114 mg/dl Hemoglobin A1c 5.6 % Calcium Level 8.9 mg/dl Triglycerides Level 104 mg/dl Cholesterol Level 185 mg/dl HDL Cholesterol 99 mg/dl LDL Cholesterol, Calculated 65 mg/dl VLDL Cholesterol, Calculated 21 mg/dl Cholesterol/HDL Ratio 1.9 Thyroid Stimulating Hormone (TSH) 1.550 uIu/ml Assessment and Plan Assessment and Plan: This is an 82yo male with a history of HTN, HLD and prostate cancer who presented to the ED for stroke-like symptoms (R-arm weakness, slurring speech, altered mentation). tPA was not administered as the patient's symptoms initially resolved upon arrival to the ED. Over the course of the day the patient's symptoms waxed and waned. Stroke telemed was consulted and the decision was made to start the patient on initial 300mg plavix loading dose with 75mg daily after that. MRI brain shows left anterior pontine infarct. CT angio negative. EKG sinus nathaniel. Lipid panel wnl. At this point the working diagnosis is ischemic stroke. 1. Left anterior pontine infarct, evolving with current symptoms: RUE weakness and flaccidity with slurring speech, per the patient and his family mentation is improved to baseline -MRI brain positive for left anterior pontine infarct -CT angio negative -echo pending -TSH, folate, lipids, and A1c wnl -B12 injection 1000mcg daily x5days, recheck B12 level as outpatient -continue home simvastatin 40mg PO daily -neurology consult completed with the following recommendations: one loading dose plavix 300mg with 75mg daily after that, follow up with neurology as outpatient -speech eval completed and recommendation is for nectar thick liquid diet -video swallow study pending -PT/OT eval completed with recommendation for inpatient rehab, patient agrees and is eager to begin therapy at [facility] 2. acute renal failure: Cr 1.7 on admission trending down to 1.4 on 05/17/17 -consider continuing IV nss @ 100mls/hr -restart home lisinopril 10mg PO daily -hold home HCTZ 3. HTN -continue home lisionpril 10mg PO daily -hydralazine 5mg IV q6h prn 4. Asthma -continue home Singulair -continue home Symbicort 5. GERD -pantoprazole 40mg 6. BPH -continue home tamsulosin 0.4mg PO daily -continue home finasteride 5mg PO daily 7. Diet -nectar thick diet per speech recommendations 8. DVT prophylaxis -ambulate as tolerated -SCD 9. Discharge planning -location: [facility] inpatient rehab, pending [facility] -Date: 05/18/17 tentative Discharge planning: rehab hospital Reviewed: Pt Seen/Exam by Me History See my note for details. Assessment/Plan 82 y/o M who was admitted for observation on 05/16 for stroke like sx. Tpa not indicated on initial presentation due to near complete resolution of sx. Due to recurrence of initial sx as well as new sx, was revisited with telemed after recurrence of sx on the afternoon of the same day and recs were for 300mg plavix loading dose and then daily plavix after. Stroke like sx: CVA noted on MRI--L anterior pontine infarct CT head neg for acute CTA neg regarding vasculature ECHO pending TSH, folate, lipids, A1c WNL B12 low at 308 Takes statin at baseline, will continue Neuro agrees with plavix use Speech eval recs for nectar thick with VSS pending ARF: baseline appears to be around 1.3, likely dehydration given hx of consistent outdoor work with no water intake WNL s/p IVF Resume lisinopril and monitor Continue to hold HCTZ B12 deficiency: Daily B12 injections x5, then to Qweek x4, then recheck HTN: meds as above Asthma: continue home meds GERD: continue home meds Other: Full code, although pt is quite clear that he does not want prolonged mechanical life support. Family is present during this discussion and agrees. SCDs for DVT proph Diet as per speech eval PT/OT recs for rehab and pt is agreeable to this, awaiting [facility], etc
[2017-05-17] MEDS: SODIUM CHLORIDE 0.9% 1000ML 1,000 ML IV SCH ×2 (12:42→23:50)
--- NOTE | 2017-05-17 17:16 | Progress Note ---
Subjective Date of Service: May 17, 2017. Subjective Pt evaluation today including: conversation w/ patient, conversation w/ family Pt has had continued weakness in his R UE, but feels his R LE is stable. Still with R facial droop, but he feels this is improved as well. Mentation is back at his baseline speed, but still with garbled speech. Feels well otherwise. Pt denies fever, SOB, chest pain, abd pain, n/v/c/d, LE pain or swelling. Problem List Medical Problems: (1) CVA (cerebral vascular accident) Status: Acute (2) Dehydration Status: Acute Review of Systems All Other Systems: Reviewed and Negative Objective Vital Signs Date Time Temp Pulse Resp B/P (MAP) Pulse Ox O2 Delivery O2 Flow Rate FiO2 05/17/17 16:00 Room Air 05/17/17 15:29 36.8 82 20 119/74 (89) 97 Room Air 05/17/17 12:00 Room Air 05/17/17 11:31 36.8 95 18 174/82 (112) 97 Room Air 05/17/17 09:40 88 96 05/17/17 08:00 Room Air 05/17/17 07:42 36.8 72 19 157/72 (100) 95 Room Air 05/17/17 04:10 36.9 62 18 156/78 (104) 95 Room Air 05/17/17 04:00 Room Air 05/16/17 23:59 Room Air 05/16/17 23:37 36.7 62 20 159/73 (101) 96 Room Air 05/16/17 20:00 Room Air 05/16/17 18:26 36.9 71 20 127/77 (94) 96 Physical Exam Comments: General Appearance: WD/WN, no apparent distress Eyes: normal inspection, EOMI Respiratory/Chest: normal breath sounds, no respiratory distress Cardiovascular: regular rate, rhythm, no edema, normal peripheral pulses Abdomen/GI: non tender, soft Extremities/Musculoskelatal: no calf tenderness, no pedal edema Neurologic/Psych: R sided facial droop improved from yesterday, alert, normal mood/affect, oriented x 3, + pertinent finding (acid splicer strength 3/5 on R, LE strength against resistance 5/5 b/l although very slight weakness in the R) Skin: normal color, warm/dry Laboratory Results Last 24 Hours Test 05/16/17 17:41 05/17/17 01:18 05/17/17 06:22 Troponin I < 0.015 ng/ml < 0.015 ng/ml Vitamin B12 Level 308 pg/mL Folate > 24.00 ng/mL White Blood Count 6.27 K/uL Red Blood Count 4.58 M/uL Hemoglobin 12.6 g/dL Hematocrit 39.7 % Mean Corpuscular Volume 86.7 fL Mean Corpuscular Hemoglobin 27.5 pg Mean Corpuscular Hemoglobin Concent 31.7 g/dl Platelet Count 199 K/uL Mean Platelet Volume 10.0 fL Neutrophils (%) (Auto) 66.2 % Lymphocytes (%) (Auto) 23.9 % Monocytes (%) (Auto) 7.8 % Eosinophils (%) (Auto) 1.6 % Basophils (%) (Auto) 0.5 % Neutrophils # (Auto) 4.15 K/uL Lymphocytes # (Auto) 1.50 K/uL Monocytes # (Auto) 0.49 K/uL Eosinophils # (Auto) 0.10 K/uL Basophils # (Auto) 0.03 K/uL RDW Standard Deviation 47.4 fL RDW Coefficient of Variation 14.8 % Immature Granulocyte % (Auto) 0.0 % Immature Granulocyte # (Auto) 0.00 K/uL Sodium Level 144 mmol/L Potassium Level 3.7 mmol/L Chloride Level 110 mmol/L Carbon Dioxide Level 26 mmol/L Anion Gap 8.0 mmol/L Blood Urea Nitrogen 19 mg/dl Creatinine 1.40 mg/dl Est Creatinine Clear Calc Drug Dose 36.7 ml/min Estimated GFR () 53.1 Estimated GFR (Non- 45.8 BUN/Creatinine Ratio 13.5 Random Glucose 87 mg/dl Estimated Average Glucose 114 mg/dl Hemoglobin A1c 5.6 % Calcium Level 8.9 mg/dl Triglycerides Level 104 mg/dl Cholesterol Level 185 mg/dl HDL Cholesterol 99 mg/dl LDL Cholesterol, Calculated 65 mg/dl VLDL Cholesterol, Calculated 21 mg/dl Cholesterol/HDL Ratio 1.9 Thyroid Stimulating Hormone (TSH) 1.550 uIu/ml Assessment and Plan 82 y/o M who was admitted for observation on 05/16 for stroke like sx. Tpa not indicated on initial presentation due to near complete resolution of sx. Due to recurrence of initial sx as well as new sx, was revisited with telemed after recurrence of sx on the afternoon of the same day and recs were for 300mg plavix loading dose and then daily plavix after. Stroke like sx: CVA noted on MRI--L anterior pontine infarct CT head neg for acute CTA neg regarding vasculature ECHO pending TSH, folate, lipids, A1c WNL B12 low at 308 Takes statin at baseline, will continue Neuro agrees with plavix use Speech eval recs for nectar thick with VSS pending ARF: baseline appears to be around 1.3, likely dehydration given hx of consistent outdoor work with no water intake WNL s/p IVF Resume lisinopril and monitor Continue to hold HCTZ B12 deficiency: Daily B12 injections x5, then to Qweek x4, then recheck HTN: meds as above Asthma: continue home meds GERD: continue home meds Other: Full code, although pt is quite clear that he does not want prolonged mechanical life support. Family is present during this discussion and agrees. SCDs for DVT proph Diet as per speech eval PT/OT recs for rehab and pt is agreeable to this, awaiting [facility], etc
--- NOTE | 2017-05-17 17:31 | ECHOCARDIOGRAM REPORT ---
*NOTICE TO RECEIVING CONSTITUTION PARTY AGENCY This information is strictly Confidential and protected under [place] law. [place] law prohibits you from making any further disclosure of this information unless further disclosure is expressly permitted by the written consent of the person to whom it pertains or is authorized by law. A general authorization for the release of medical or other information is not sufficient for this purpose. Hospital accepts no responsibility if the information is made available to any other person, INCLUDING THE PATIENT. Interpretation Summary * Name: LEANDRA ALBERTO Study Date: 05/17/2017 11:43 AM BP: 142/69 mmHg * Patient Location: C.2T\S\S240\S\2 HR: 85 * : 1935 (M/d/yyy) Gender: Male Height: 67 in * Age: 82 yrs Ethnicity: [place] Weight: 147 lb * Ordering Physician: Mandy Vargas * Referring Physician: Self, Referred * Performed By: Amy Russell RCS * * Reason For Study: Stroke like SX * BSA: 1.8 m2 * Normal biventricular systolic function. * Class 1 left ventricular diastolic dysfunction. * Normal chamber dimensions. * No significant valvular abnormalities noted. * No cardiac source of emboli noted. * The study was technically difficult. * The study was technically limited. Procedure Details * A saline contrast injection was performed to assess for cardiac shunting. * The injection was performed through an intravenous line in the right arm. * The attending nurse who injected the saline contrast was Jose Jackson RN. * A total of 18 cc of agitated saline was given. Left Ventricle * The left ventricle is normal in size. * There is no thrombus. * There is normal left ventricular wall thickness. * Left ventricular systolic function is normal. * Ejection Fraction = 65-70%. * A full diastolic examination was done with clinical findings of Class I diastolic dysfunction. * The left ventricular wall motion is normal. Atria * The left atrial size is normal. * Right atrial size is normal. * Injection of contrast documented no interatrial shunt. Mitral Valve * The mitral valve is not well visualized. * There is no mitral valve stenosis. * Significant mitral regurgitation is absent. Tricuspid Valve * The tricuspid valve is not well visualized. * Significant tricuspid regurgitation is absent. Aortic Valve * The aortic valve is not well visualized. * Aortic stenosis is absent. * There is no significant aortic regurgitation. Pulmonic Valve * The pulmonic valve is not well visualized. * The pulmonary valve is inadequately visualized, but the Doppler data is adequate for interpretation. * There is no pulmonic valvular stenosis. * There is no significant pulmonary regurgitation. Great Vessels * The aortic root is normal size. * Normal inferior vena cava diameter and respiratory variation suggests normal central venous pressure. MMode 2D Measurements and Calculations IVSd 1.1 cm LVIDd 4.9 cm LVIDs 3.2 cm LVPWd 0.95 cm IVS/LVPW 1.2 FS 35.9 % EDV(Teich) 115.1 ml ESV(Teich) 40.0 ml EF(Teich) 65.3 % EDV(cubed) 120.7 ml ESV(cubed) 31.8 ml EF(cubed) 73.6 % LV mass(C)d 188.8 grams LV mass(C)dI 106.4 grams/m\S\2 SV(Teich) 75.1 ml SI(Teich) 42.3 ml/m\S\2 SV(cubed) 88.9 ml SI(cubed) 50.1 ml/m\S\2 Ao root diam 3.0 cm Ao root area 6.9 cm\S\2 LA dimension 3.8 cm LA/Ao 1.3 LVOT diam 2.2 cm LVOT area 3.9 cm\S\2 LVAd ap4 35.6 cm\S\2 LVLd ap4 9.2 cm EDV(MOD-sp4) 114.9 ml EDV(sp4-el) 116.4 ml LVAs ap4 20.0 cm\S\2 LVLs ap4 7.6 cm ESV(MOD-sp4) 45.2 ml ESV(sp4-el) 44.3 ml EF(MOD-sp4) 60.6 % EF(sp4-el) 61.9 % LVAd ap2 25.5 cm\S\2 LVLd ap2 9.0 cm EDV(MOD-sp2) 63.0 ml EDV(sp2-el) 61.2 ml LVAs ap2 12.1 cm\S\2 LVLs ap2 7.2 cm ESV(MOD-sp2) 18.8 ml ESV(sp2-el) 17.4 ml EF(MOD-sp2) 70.1 % EF(sp2-el) 71.6 % LVLd %diff -2.27 % EDV(MOD-bp) 84.6 ml LVLs %diff -60 % ESV(MOD-bp) 29.0 ml EF(MOD-bp) 65.8 % SV(MOD-sp4) 69.7 ml SI(MOD-sp4) 39.3 ml/m\S\2 SV(MOD-sp2) 44.2 ml SI(MOD-sp2) 24.9 ml/m\S\2 SV(MOD-bp) 55.7 ml SI(MOD-bp) 31.4 ml/m\S\2 SV(sp4-el) 72.1 ml SI(sp4-el) 40.6 ml/m\S\2 SV(sp2-el) 43.8 ml SI(sp2-el) 24.7 ml/m\S\2 Doppler Measurements and Calculations MV E max anne 60.2 cm/sec MV A max anne 97.7 cm/sec MV E/A 0.62 MV dec time 0.15 sec Ao V2 max 124.3 cm/sec Ao max PG 6.2 mmHg Ao max PG (full) 2.2 mmHg MELVI(V,A) 3.1 cm\S\2 MELVI(V,D) 3.1 cm\S\2 LV V1 max PG 3.9 mmHg LV V1 max 99.2 cm/sec
[2017-05-17] MEDS: SIMVASTATIN 40 MG TAB PO SCH (20:35)
[2017-05-17] MEDS: FINASTERIDE 5 MG TAB PO SCH (20:35)
[2017-05-17] MEDS: MONTELUKAST SOD 10 MG TAB PO SCH (20:36)
[2017-05-18 04:21] VITALS: BP 167/79; PULSE 70; TEMP 36.8; O2SAT 95
[2017-05-18 07:06] LABS: BASO % 0.3 %; BASO ABS # 0.02 K/uL (0-0.2); COMPLETE YES; EOS % 0.8 %; HEMATOCRIT 34.5 % (42-52); IG% 0.1 %; LYMPH % 18.3 %; LYMPH ABS # 1.32 K/uL (1.2-3.4); MEAN CELL VOLUME 86.3 fL (80-100); MEAN CORPUSCULAR HGB CONC 32.5 g/dl (32-36); MEAN PLATELET VOLUME 9.8 fL (7.4-10.4); MONO % 6.4 %; NEUT % 74.1 %; PLATELET COUNT 169 K/uL (130-400); WHITE BLOOD COUNT 7.22 K/uL (4.8-10.8)
--- NOTE | 2017-05-18 07:25 | Medical Student: [facility] ---
Med Student Progress Note Date of Service May 18, 2017. Subjective Pt evaluation today including: conversation w/ patient, physical exam, lab review Voiding: no voiding problems Patient was examined sitting in chair. He feels that his speech is getting better and that his right arm weakness/flaccidity has stabilized. He did not sleep well due to right leg spasms/restlessness which is not new to him but was worse than normal last night. Tolerating nectar thick diet and is able to take all PO medications. Denies new stroke symptoms, headache, vision changes, cp, sob, n/v/d, incontinence, numbness/tingling, calf pain. He is eager to start at inpatient rehab but is worried about being able to continue taking care of his who has multiple medical problems. We discussed what to expect at inpatient rehab and answered his questions. No other complaints at this time. Review of Systems Constitutional: No fever, No chills Eyes: No worsening of vision, No diplopia ENT: No sore throat, No trouble swallowing Respiratory: No cough, No shortness of breath Cardiac: No chest pain, No palpitations Abdomen: No pain, No nausea, No vomiting, No diarrhea Musculoskeletal: No joint pain, No calf pain Male : No dysuria, No incontinence Neurologic: + weakness, No numbness/tingling, No balance problems Skin: No rash, No itch Objective Vital Signs Date Time Temp Pulse Resp B/P (MAP) Pulse Ox O2 Delivery O2 Flow Rate FiO2 05/18/17 04:21 36.8 70 18 167/79 (108) 95 Room Air 05/18/17 04:00 Room Air 05/17/17 23:59 Room Air 05/17/17 23:55 36.8 71 18 131/70 (90) 96 Room Air 05/17/17 20:57 36.9 77 20 156/90 (112) 97 Room Air 05/17/17 20:00 Room Air 05/17/17 16:00 Room Air 05/17/17 15:29 36.8 82 20 119/74 (89) 97 Room Air 05/17/17 12:00 Room Air 05/17/17 11:31 36.8 95 18 174/82 (112) 97 Room Air 05/17/17 09:40 88 96 05/17/17 08:00 Room Air 05/17/17 07:42 36.8 72 19 157/72 (100) 95 Room Air Physical Exam General Appearance: WD/WN, + mild distress (tearful at times) Eyes: bilateral eyes normal inspection, bilateral eyes PERRL, bilateral eyes EOMI ENT: hearing grossly normal, pharynx normal Neck: supple, no adenopathy, no carotid bruits Respiratory/Chest: lungs clear, normal breath sounds, no respiratory distress, no accessory muscle use Cardiovascular: regular rate, rhythm, no gallop, no murmur Abdomen: normal bowel sounds, non tender, soft Extremities: normal inspection, no calf tenderness Neurologic/Psychiatric: alert, oriented x 3, + facial droop (right side), + motor weakness Skin: normal color, warm/dry, no rash Comments: Right-sided facial droop Speech is slurring but not aphasic, improved from yesterday Strength: RUE 4/5 biceps, 3/5 triceps, 0/5 wrist extensors and finger intrinsics , RLE 4/5 throughout, LUE and LLE 5/5 throughout Sensation: intact to pinprick and light touch BUE and BLE Laboratory Results Last 24 Hours Test 05/18/17 06:46 White Blood Count 7.22 K/uL Red Blood Count 4.00 M/uL Hemoglobin 11.2 g/dL Hematocrit 34.5 % Mean Corpuscular Volume 86.3 fL Mean Corpuscular Hemoglobin 28.0 pg Mean Corpuscular Hemoglobin Concent 32.5 g/dl Platelet Count 169 K/uL Mean Platelet Volume 9.8 fL Neutrophils (%) (Auto) 74.1 % Lymphocytes (%) (Auto) 18.3 % Monocytes (%) (Auto) 6.4 % Eosinophils (%) (Auto) 0.8 % Basophils (%) (Auto) 0.3 % Neutrophils # (Auto) 5.35 K/uL Lymphocytes # (Auto) 1.32 K/uL Monocytes # (Auto) 0.46 K/uL Eosinophils # (Auto) 0.06 K/uL Basophils # (Auto) 0.02 K/uL RDW Standard Deviation 47.0 fL RDW Coefficient of Variation 14.8 % Immature Granulocyte % (Auto) 0.1 % Immature Granulocyte # (Auto) 0.01 K/uL Assessment and Plan Assessment and Plan: This is an 82yo male with a history of HTN, HLD and prostate cancer who presented to the ED for stroke-like symptoms (R-arm weakness, slurring speech, altered mentation). tPA was not administered as the patient's symptoms initially resolved upon arrival to the ED. Over the course of the day the patient's symptoms waxed and waned. Stroke telemed was consulted and the decision was made to start the patient on initial 300mg plavix loading dose with 75mg daily after that. MRI brain shows left anterior pontine infarct. CT angio negative. EKG sinus nathaniel. Lipid panel wnl. At this point the working diagnosis is ischemic stroke. The patient is medically stable for discharge to inpatient rehab. 1. Left anterior pontine infarct: RUE weakness and flaccidity with slurring speech, per the patient and his family mentation is improved to baseline -MRI brain positive for left anterior pontine infarct -CT angio negative -echo pending -TSH, folate, lipids, and A1c wnl -B12 injection 1000mcg daily x5days, recheck B12 level as outpatient -continue home simvastatin 40mg PO daily -leg spasms: could be his restless legs vs. new spasticity--continue to monitor as outpatient and consider iron supplementation vs baclofen -video swallow study completed -neurology consult completed with the following recommendations: one loading dose plavix 300mg with 75mg daily after that, follow up with neurology as outpatient -speech eval completed and recommendation is for nectar thick liquid diet -PT/OT eval completed with recommendation for inpatient rehab, patient agrees and is eager to begin therapy at [facility] 2. acute renal failure: Cr 1.7 on admission trending down, 1.4 today 05/18/17 -d/c IVF -restart home lisinopril 10mg PO daily -consider restarting home HCTZ for consistently elevated BP here in the hospital 3. HTN -continue home lisinopril 10mg PO daily -hydralazine 5mg IV q6h prn -consider restarting home HCTZ for consistently elevated BP here in the hospital 4. Asthma -continue home Singulair -continue home Symbicort 5. GERD -pantoprazole 40mg PO daily 6. BPH -continue home tamsulosin 0.4mg PO daily -continue home finasteride 5mg PO daily 7. Diet -nectar thick diet per speech recommendations 8. DVT prophylaxis -ambulate as tolerated -SCD 9. Discharge planning -location: inpatient rehab ([facility]) -Date: 05/18/17 Discharge planning: rehab hospital Reviewed: Pt Seen/Exam by Me History See my note for details. Assessment/Plan 82 y/o M who was admitted for observation on 05/16 for stroke like sx. Tpa not indicated on initial presentation due to near complete resolution of sx. Due to recurrence of initial sx as well as new sx, was revisited with telemed after recurrence of sx on the afternoon of the same day and recs were for 300mg plavix loading dose and then daily plavix after. Stroke like sx: CVA noted on MRI--L anterior pontine infarct CT head neg for acute CTA neg regarding vasculature ECHO pending TSH, folate, lipids, A1c WNL B12 low at 308 Takes statin at baseline, will continue Neuro agrees with plavix use Speech eval recs for nectar thick with VSS pending ARF: baseline appears to be around 1.3, likely dehydration given hx of consistent outdoor work with no water intake WNL s/p IVF Resume lisinopril and monitor Continue to hold HCTZ B12 deficiency: Daily B12 injections x5, then to Qweek x4, then recheck HTN: meds as above Asthma: continue home meds GERD: continue home meds Other: Full code, although pt is quite clear that he does not want prolonged mechanical life support. Family is present during this discussion and agrees. SCDs for DVT proph Diet as per speech eval PT/OT recs for rehab and pt is agreeable to this, awaiting auths, etc
[2017-05-18 07:28] LABS: BUN/CREATININE RATIO 12.9 (10-20); CALCIUM 8.3 mg/dl (8.5-10.1); CREATININE 1.4 mg/dl (0.60-1.40); POTASSIUM 3.6 mmol/L (3.5-5.1)
[2017-05-18 08:00] VITALS: BP 150/76; PULSE 69; TEMP 36.8; O2SAT 96
[2017-05-18] MEDS: CEROVITE ADV FORMULA TAB PO SCH (08:12)
[2017-05-18] MEDS: BUDESONIDE/FORMOTEROL FUMARATE 160/4.5 60 PUFFS/INHALER INH SCH (08:12)
[2017-05-18] MEDS: FAMOTIDINE 20 MG TAB PO SCH (08:13)
[2017-05-18] MEDS: TAMSULOSIN HCL 0.4 MG CAP PO SCH (08:13)
[2017-05-18] MEDS: PANTOprazole SOD 40 MG TAB PO SCH (08:13)
[2017-05-18] MEDS: CLOPIDOGREL BISULFATE 75 MG TAB PO SCH (08:13)
[2017-05-18] MEDS: CYANOCOBALAMIN 1000 MCG/ML VIAL IM SCH (08:13)
[2017-05-18] MEDS ORDERED: LISINOPRIL 10 MG TAB PO SCH (09:00)
[2017-05-18 11:29] VITALS: BP 136/66; PULSE 74; TEMP 36.8; O2SAT 97
[2017-05-18] MEDS ORDERED: CYNI1000 IM (12:15)
[2017-05-18] MEDS ORDERED: PLV75 PO (12:15)
--- NOTE | 2017-05-18 12:17 | Discharge Instructions ---
Discharge Instructions Date of Service May 18, 2017. Admission Reason for Admission: Facial Droop Discharge Discharge Diagnosis / Problem: CVA Discharge Goals Goal(s): Decrease discomfort, Improve function, Increase independence Activity Recommendations Activity Limitations: as noted below (as per rehab) . Instructions / Follow-Up Instructions / Follow-Up See transfer d/c for further instructions Risk Factors for Stroke: You can reduce your chances of stroke by working with your medical provider to adopt a healthy lifestyle. Some specific ways to lower your chance of stroke are: * If you are a smoker, now is the time to stop smoking cigarettes * If you are diabetic, improve the control of your blood sugars * Avoid excessive amounts of alcohol * Control high blood pressure * Lose weight if you are overweight * Be sure to lead an active lifestyle * Eat a healthy diet low in salt, cholesterol and fat You should know about other risk factors for stroke that you are unable to control. These include: * Age 55 years or older * Male gender * Certain racial groups: , or / * Family History of Stroke, Mini stroke or Heart Attack * Sickle Cell Disease Follow Up: It is important for you to keep your follow up appointments with your medical provider. Current Hospital Diet Patient's current hospital diet: AHA Diet (Heart Healthy) Discharge Diet Recommended Diet: AHA Diet (Heart Healthy) Liquid Consistency: [place] Thick Pending Studies Studies pending at discharge: no Laboratory Results Hemoglobin A1c Test 05/17/17 06:22 Range/Units Estimated Average Glucose 114 mg/dl Hemoglobin A1c 5.6 4.5-5.6 % Lipid Panel Test 05/17/17 06:22 Range/Units Triglycerides Level 104 0-150 mg/dl Cholesterol Level 185 0-200 mg/dl HDL Cholesterol 99 mg/dl Cholesterol/HDL Ratio 1.9 LDL Cholesterol, Calculated 65 mg/dl Medical Emergencies . Who to Call and When: Medical Emergencies: Call 911 immediately if you experience any of the following warning signs and symptoms of Stroke: * Sudden numbness or weakness of the face, arm or leg, especially on one side of the body * Sudden confusion, trouble speaking or understanding * Sudden trouble seeing in one or both eyes * Sudden trouble walking, dizziness, loss of balance or coordination * Sudden severe headache with no cause Do not delay calling 911 if you experience any warning signs or symptoms of a stroke. Delay in seeking medical attention may affect what treatments can be given to you. . Non-Emergent Contact Non-Emergency issues call your: Primary Care Provider . . "Provider Documentation" section prepared by Mandy Vargas. . Stroke Core Measures Reason no t-PA for Stroke: Treatment provided - N/A Reason no antithrom by day 2: Treatment provided - N/A Reason no antithrom at D/C: Treatment provided - N/A Reason no statin at D/C: Treatment provided - N/A Reason no anticoag w/a fib: Treatment not indicated VTE Core Measure Inpt VTE Proph given/why not?: SCD's
--- NOTE | 2017-05-18 12:19 | Discharge Instructions ---
Discharge Instructions Date of Service May 18, 2017. Admission Reason for Admission: Facial Droop Discharge Discharge Diagnosis / Problem: CVA Discharge Goals Goal(s): Decrease discomfort, Improve function, Increase independence Activity Recommendations Activity Level: Assistance Required Therapies: Physical Therapy, Occupational Therapy, Speech Therapy . Additional Information Patient informed of condition: Yes Advance Directives: No DNR: No Level of Care: Acute Rehab Communicable Disease: No Prognosis: Improving [place] Catheter: No Current Hospital Diet Patient's current hospital diet: AHA Diet (Heart Healthy) Discharge Diet Recommended Diet: AHA Diet (Heart Healthy) Diet Texture: Dental Soft (bite-sized) Liquid Consistency: Honey Thick Pending Studies Studies pending at discharge: no Physician Orders On Transfer Additional Orders: B12 injections as written PRP and iron panel on 05/24/17 Laboratory Results Hemoglobin A1c Test 05/17/17 06:22 Range/Units Estimated Average Glucose 114 mg/dl Hemoglobin A1c 5.6 4.5-5.6 % Lipid Panel Test 05/17/17 06:22 Range/Units Triglycerides Level 104 0-150 mg/dl Cholesterol Level 185 0-200 mg/dl HDL Cholesterol 99 mg/dl Cholesterol/HDL Ratio 1.9 LDL Cholesterol, Calculated 65 mg/dl Medical Emergencies . Who to Call and When: Medical Emergencies: If at any time you feel your situation is an emergency, please call 911 immediately. . Non-Emergent Contact Non-Emergency issues call your: Primary Care Provider . . "Provider Documentation" section prepared by Mandy Vargas. . Core Measure Problem Core Measures: Stroke Stroke Core Measures Reason no t-PA for Stroke: Treatment provided - N/A Reason no antithrom by day 2: Treatment provided - N/A Reason no antithrom at D/C: Treatment provided - N/A Reason no statin at D/C: Treatment provided - N/A Reason no anticoag w/a fib: Treatment not indicated
--- NOTE | 2017-05-18 12:22 | Discharge Summary ---
Discharge Summary Date of Service May 18, 2017. Discharge Summary Admission Date: May 16, 2017 at 17:00 Discharge Date: May 18, 2017 Discharge Disposition: Rehab Principal Diagnosis: CVA Problems/Secondary Diagnoses: B12 deficiency HTN GERD Hyperlipidemia Asthma Immunizations: Have You Had Influenza Vaccine: Yes Influenza Vaccine Date: Aug 30, 2013 History of Tetanus Vaccine?: Unknown History of Pneumococcal: Yes History of Hepatitis B Vaccine: No Consultations: Neuro Medication Reconciliation New Medications: Clopidogrel Bisulfate (Clopidogrel) 75 Mg Tab 75 MG PO QAM for 30 Days, #30 TAB Cyanocobalamin (Cyanocobalamin) 1,000 Mcg/Ml Inj 1000 MCG IM UD, #7 1 injection IM daily x3 days, then weekly x4 weeks Continued Medications: Albuterol Sulfate (Proventil Hfa) 108 Mcg/Act Aer 1 PUFF INH Q4 PRN for Shortness of Breath Budesonide/Formoterol Fumarate (Symbicort 160-4.5 Mcg/Act) 60 Puffs/Inhaler Aero 2 PUFFS INH BID Finasteride (Proscar) 5 Mg Tab 5 MG PO HS, TAB Hydrochlorothiazide (Hydrochlorothiazide) 50 Mg Tab 50 MG PO DAILY Krill Oil (Krill Oil [place]-3) 1 Cap Cap 500 MG PO UD Lisinopril (Lisinopril) 10 Mg Tab 10 MG PO DAILY Montelukast Sodium (Singulair) 10 Mg Tab 10 MG PO HS, TAB Multivitamins/Minerals (Mvi With Minerals) Tab 1 TAB PO QAM, TAB Ocuvite Preservision (Ocuvite Preservision) 1 Tab Tab 1 TAB PO BID, TAB Omeprazole (Omeprazole) 20 Mg Tab 20 MG PO QAM Simvastatin (Zocor) 40 Mg Tab 40 MG PO QPM, TAB Tamsulosin HCl (Tamsulosin HCl) 0.4 Mg Cap 0.4 MG PO DAILY Discharge Exam Pt is improving. Still with facial droop and difficult speaking, but better than yesterday. Still with R UE weakness, but has been working with a therapy ball and feels his county agent strength and ability to move his arm are both better. Eating well other than feeling awkward due to using his L hand. Pt denies fever , SOB, chest pain, abd pain, n/v/c/d, LE pain or swelling. Has been ambulating with assistance but feels it is stable. Physical Exam: General Appearance: WD/WN, no apparent distress Eyes: normal inspection, EOMI ENT: hearing grossly normal Neck: supple Respiratory/Chest: normal breath sounds, no respiratory distress Cardiovascular: regular rate, rhythm, no edema Abdomen / GI: non tender, soft Extremities: no calf tenderness, no pedal edema Neurologic/Psychiatric: alert, normal mood/affect, oriented x 3, + facial droop (R sided and improving), + pertinent finding (county agent strength 4/5 on R, slightly decreased strength against resistance on R LE from the hip, able to move R UE from the elbow and wrist) Skin: normal color, warm/dry Hospital Course Per H&P: 82 y/o M who was brought to the ED by his family for concern of possible stroke. Pt states he has been in his usual health until around 830am today when he had sudden onset of R sided weakness/numbness and inability to speak clearly with slowed mentation while he was having breakfast. Pt states "my arm and leg was like they were ". He could not pick his arm up or use his leg at all. He felt like his speech was slow and garbled. He alerted his who called his son and his son came to bring him to the ED. He states that prior to the sudden onset of these sx, he had no issues. Yesterday he was able to do all of his usual activities and slept well. Pt states he works outside in his garden all of the time, but drinks no water. "I couldn't tell you the last time I had a glass of water." Pt states he has never had anything like this happen prior. At present, pt states he feels like his R UE/LE are back to their usual. He does still feel like his speech is a bit off and that it is taking him longer to form thoughts and sentences, but this is also improved from [employer]. On arrival, telemed was alerted to determine if tpa was needed, however as sx started to resolve, it was determined that tpa was not indicated. Pt denies fever, SOB, chest pain, abd pain, n/v/c/d, LE pain or swelling. He has been eating well other than breakfast this AM which was an issue due to difficulty using his mouth properly. Several hours after admission, called by nursing for new stroke sx. Pt now with R sided facial droop and R LE spasms. He has also had recurrence of garbled speech and mild R UE weakness that was not as intense as his initial sx , but not as he had been on admission initially. Pt states he feels fine other than he is concerned about the spasms. Hospital course: 82 y/o M who was admitted for observation on 05/16 for stroke like sx. Tpa not indicated on initial presentation due to near complete resolution of sx. Due to recurrence of initial sx as well as new sx, was revisited with telemed after recurrence of sx on the afternoon of the same day and recs were for 300mg plavix loading dose and then daily plavix after. 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 Family is present during this discussion and agrees. Total Time Spent: Greater than 30 minutes This includes examination of the patient, discharge planning, medication reconciliation, and communication with other providers. Discharge Instructions Please refer to the electronic Patient Visit Report (Discharge Instructions) for additional information. Follow-Up 1 week Additional Copies To JohnTeo adams; Parveen Lopez M.D.
[2017-05-18 13:47] VITALS: BP 136/66; PULSE 74; TEMP 36.8; O2SAT 97
--- NOTE | 2017-05-18 14:42 | DIAGNOSTIC IMAGING REPORT ---
VIDEO SWALLOW STUDY CLINICAL HISTORY: Aspiration. COMPARISON STUDY: No priors. FLUOROSCOPY TIME: 3.2 minutes. FINDINGS: Fluoroscopic guidance was provided to the Department of Speech Pathology in performing a video swallow study. The patient consumed barium-impregnated pudding, cracker with paste, nectar thick liquids, and thin barium while the swallowing mechanism was observed in real-time. Silent aspiration was seen with the nectar thick liquid and thin barium textures. No penetration or aspiration was seen with the cracker with paste or pudding textures. Esophageal dysmotility was observed. IMPRESSION: 1. Silent aspiration was seen with nectar thick liquid and thin barium. 2. See dedicated speech pathology report for detailed findings and recommendations. Dictated: 05/18/2017 2:26 PM Transcribed: 05/18/2017 2:41 PM [email or web address] Electronically signed by: Niko Wills M.D. 05/18/2017 2:48 PM Dictated Date/Time: 05/18/2017 2:26 PM
== END 2017-05-18 15:05 | DRG 65 ==
LOC: C.EDB 09:25 → C.MED 11:23 → EDBEDREQ 11:31 → ENRESERV 12:02 → OBSVTOIN 17:00 → ENRESERV 17:38 → C.2T 18:33
PROVIDERS: ADMIT Family Medicine; ATTEND Family Medicine
DX: I63.9 Cerebral infarction, unspecified (principal); N17.9 Acute kidney failure, unspecified; G81.93 Hemiplegia, unspecified affecting right nondominant side; R47.81 Slurred speech; R29.810 Facial weakness; Z85.46 Personal history of malignant neoplasm of prostate; R29.702 NIHSS score 2; I10 Essential (primary) hypertension; Z88.2 Allergy status to sulfonamides; E86.0 Dehydration; K21.9 Gastro-esophageal reflux disease without esophagitis; Z85.828 Personal history of other malignant neoplasm of skin; J45.909 Unspecified asthma, uncomplicated; E53.8 Deficiency of other specified B group vitamins

== ENCOUNTER → 2017-07-13 | Outpatient (CLI) | payer OTHER ==
[~2017-07-13] MED LIST changes: +CYNI1000 IM; +FLM4 PO; +KRIL1CAP7 PO; +LISI-461 PO; -OMEGCAP2 PO; +PLV75 PO; -POLYPOW97 PO; -PRED1SUS3 OPL; -TAMS0.4C59 PO; -TEMA-79 PO
--- NOTE | 2017-07-13 14:41 | DIAGNOSTIC IMAGING REPORT ---
VIDEO SWALLOW HISTORY: I63.9 CVA (cerebral vascular accident)T17.900A Silent aspiration TECHNIQUE: Video fluoroscopic evaluation of swallowing was performed in the AP and lateral projections by the speech pathology staff. The patient is fed nectar-thick and thin liquid barium, a barium coated wafer, and barium pudding. FLUOROSCOPY TIME: 2.3 minutes. Cine loop submitted. COMPARISON STUDY: Video swallow 05/18/2017. FINDINGS: There is again noted silent aspiration with the thin liquid barium. No aspiration with the nectar thick liquid barium, barium pudding, or barium coated cracker. Mild to moderate vallecular residue with the thicker barium consistencies. Moderate hiatus hernia. IMPRESSION: 1. There is again noted silent aspiration with the thin liquid barium only. 2. Please see the speech pathologist report for detailed findings and recommendations. 3. Moderate hiatus hernia. Electronically signed by: Thony Taylor M.D. 07/13/2017 2:39 PM Dictated Date/Time: 07/13/2017 2:20 PM
--- NOTE | 2017-07-13 15:03 | SWALLOWING EVALUATION ---
REFERRING SPEECH PATHOLOGIST: Gardenia Hughes MS, CCC-KILN TRANSFER OPERATOR/L HISTORY: This 82 year-old male was referred for a VFSS at [facility] in order to evaluate progress in swallowing function as compared to a VFSS completed 05/08/2017 s/p CVA. The previous VFSS resulted in recommendations for a slippery mechanical soft diet and HONE[place]-thick liquids and use of a chin tuck posture with all swallows. The patient has a PMH significant for aforementioned CVA of the (L) anterior elizabeth. He has had acute stroke rehabilitation at [facility] as an inpatient and outpatient. Currently the patient's diet level is regular, but he reports using thickening agents with "some drinks". PROCEDURE: The patient was seen in the Radiology Department of [facility] for the VFSS. Cursory examination of the oral cavity revealed adequate dentition. Movement of the articulators was WNL. The patient was seated on a stool and was viewed in both the Anterior-Posterior (A-P) and Lateral planes. Volitional phonation exercises completed in the A-P plane revealed bilateral vocal fold movement and vocal intensity within functional limits. In the lateral plane, the patient was given the following boluses: 1 tsp. thin liquid barium x 2, single swallow thin liquid barium self-presented from a cup, sequential swallows of thin liquid barium self-presented from a cup, 1 tsp. nectar-thick liquid barium, single swallow nectar-thick liquid barium self-presented from a cup, 1 tsp. barium pudding, and 1 club cracker with barium pudding. The patient was then repositioned into the A-P plane and given 1 tsp. barium pudding. Chin tuck posture was independently adopted by the patient with all swallows EXCEPT the first presentation of thin liquid from a teaspoon. RESULTS: Oral Stage: No interlabial bolus escape. Cohesive bolus between tongue and palate during oral bolus hold exercise with thin liquid barium. Slow mastication with complete bolus re-collection. Brisk lingual movement for bolus transport to the pharynx. Residue collections on oral surfaces after the swallow. Latent pharyngeal swallow initiation when bolus head was in the pyriform sinuses. Some mild delays and piecemeal deglutition, but the oral stage of the swallow was considered WFL. Pharyngeal Stage: No bolus between soft palate and pharyngeal wall. Partial laryngeal elevation and partial anterior hyoid excursion. Complete epiglottic inversion. Complete laryngeal vestibular closure WITH USE OF CHIN TUCK. Bilateral pseudodiverticulae noted in AP plane. Partial distention and duration of PES opening. Narrow column of contrast between tongue base and pharyngeal wall. Majority of cracker bolus remaining in valleculae after the swallow and requiring multiple swallows to clear. There was kareem silent aspiration of the first presentation of thin liquid via teaspoon. Presumably this is due to forgetting to use a chin tuck. There was trickle aspiration of other thin liquid boluses while using the chin tuck. It may even be considered microaspiration. There was no aspiration of nectar-thick liquids. A strong throat-clear and re-swallow helped to clear it. Otherwise, there was no overt aspiration during the study. Tongue base weakness contributes to vallecular retention and this clears with dry swallows. Esophageal Stage: Diffuse mild dysmotility noted as a pudding bolus transited the esophagus (likely presbyesophagus). SUMMARY/RECOMMENDATIONS: This patient presents with mild-moderate oral-pharyngeal dysphagia. This represents a marked improvement from the VFSS completed in May 2017. In addition, the patient presents with s/s esophageal dysfunction (unchanged from previous study). The following is recommended: 1. Slippery regular diet; Thin liquids IF using aspiration precautions; [place]-thick if unable to use precautions 2. Aspiration precautions: Fully upright for meals and for 15-30 minutes after; CHIN TUCK WITH EVERY SWALLOW; completion of oral hygiene PRIOR TO oral intake in the morning, after meals and before bed at night; alternate solids and liquids during meals; avoid straw use A summary of the results and recommendations was discussed with the patient and his immediately following the study. They are anticipating f/u with the referring KILN TRANSFER OPERATOR. Thank you for referral of this patient. Please contact me at if any additional information is needed.
== END | disposition home or self-care (01) ==
LOC: C.RAD 13:11
PROVIDERS: ATTEND Internal Medicine
DX: I63.9 Cerebral infarction, unspecified (principal); T17.900A Unspecified foreign body in respiratory tract, part unspecified causing asphyxiation, initial encounter; X58.XXXA Exposure to other specified factors, initial encounter; K44.9 Diaphragmatic hernia without obstruction or gangrene

== ENCOUNTER → 2017-07-19 | Outpatient (CLI) | payer OTHER ==
--- NOTE | 2017-07-19 10:58 | DIAGNOSTIC IMAGING REPORT ---
TWO VIEW CHEST CLINICAL HISTORY: Silent aspiration.. FINDINGS: PA and lateral chest radiographs are compared to study dated 05/16/2017. Correlation is made with chest CT dated 05/01/2011. The cardiomediastinal silhouette is unremarkable. A large hiatal hernia is noted. Chronic interstitial thickening is similar to previous. Linear scarring is noted in the left upper lobe. No airspace consolidation or pleural effusion is identified. There is no pneumothorax. The skeletal structures are osteopenic. The bony thorax appears intact. 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 IMPRESSION: 1. No active disease in the chest. 2. Hiatal hernia. Electronically signed by: Niko Wills M.D. 07/19/2017 10:57 AM Dictated Date/Time: 07/19/2017 10:55 AM
== END | disposition home or self-care (01) ==
LOC: C.RAD 10:33
PROVIDERS: ATTEND Internal Medicine
DX: T17.900A Unspecified foreign body in respiratory tract, part unspecified causing asphyxiation, initial encounter (principal); X58.XXXA Exposure to other specified factors, initial encounter; K44.9 Diaphragmatic hernia without obstruction or gangrene

== ENCOUNTER 2017-07-26 19:10 | Inpatient (IN) | payer OTHER ==
[~2017-07-26] VITALS: Ht 170.2 cm; Wt 68.4 kg
[~2017-07-26 19:10] MED LIST changes: -CLOP1TAB15 PO; -LVQ750 PO; -PRED10TA PO
[2017-07-26] MEDS ORDERED: SODIUM CHLORIDE 0.9% 1000ML 500 ML IV ONE (19:44)
--- NOTE | 2017-07-26 20:07 | EMERGENCY ROOM VISIT NOTE ---
History Report prepared by Jose M: Dion Cardenas Under the Supervision of: Dr. Niko Valenzuela M.D. First contact with patient: 19:37 Chief Complaint: ILLNESS Stated Complaint: DEHYDRATION, TACHY, CONGESTION, FEVER History of Present Illness The patient is a 82 year old male who presents to the Emergency Room with complaints of constant general illness that began 10 days ago. The patient admits that he had a stroke May 16 and has been in rehab. He states that he has been experiencing chest tightness and a productive cough starting 10 days ago. The patient also states that he has been weak. He states that he has also been experiencing shortness of breath whenever he has been walking around. He admits that he has been taking Dulcolax due to his constipation and reports that he had an episode of bowel incontinence when he coughed. The patient reports that he had an x-ray done a week ago, which was normal. He states that his symptoms persisted, which caused him to go to [facility] today. The patient states that he had a fever of 100.4. He reports that he has a history of emphysema, which he uses a puffer for two times a day. The patient reports that his PCP is Dr. Lopez in [place]. He denies vomiting, diarrhea, sore throat , and headache. Source of History: patient Onset: 10 days ago Position: other (global) Quality: other (global) Timing: constant Associated Symptoms: + fevers, + cough, + SOB, No headache, No sorethroat, No vomiting, No diarrhea Review of Systems See HPI for pertinent positives & negatives. A total of 10 systems reviewed and were otherwise negative. Past Medical & Surgical Medical Problems: (1) Facial droop (2) History of prostate cancer (3) Hypertension Family History Patient reports no known family medical history. Social History Smoking Status: Never Smoker Alcohol Use: none Drug Use: none Marital Status: Housing Status: lives with family Occupation Status: retired Current/Historical Medications Scheduled Budesonide/Formoterol Fumarate (Symbicort 160-4.5 Mcg/Act), 2 PUFFS INH BID Clopidogrel (Plavix), 75 MG PO QAM Finasteride (Proscar), 5 MG PO HS Lisinopril (Lisinopril), 10 MG PO QAM Montelukast Sodium (Singulair), 10 MG PO HS Multivitamins/Minerals (Mvi With Minerals), 1 TAB PO QAM Ocuvite Preservision (Ocuvite Preservision), 1 TAB PO BID Omeprazole (Omeprazole), 20 MG PO QAM Simvastatin (Zocor), 40 MG PO QPM Tamsulosin HCl (Tamsulosin HCl), 0.4 MG PO QAM Allergies Coded Allergies: Sulfa Antibiotics (Verified Allergy, Intermediate, RASH, 07/26/17) Physical Exam Vital Signs Date Time Temp Pulse Resp B/P (MAP) Pulse Ox O2 Delivery O2 Flow Rate FiO2 07/26/17 21:54 100 20 136/76 93 Room Air 07/26/17 20:38 106 18 148/81 93 Room Air 07/26/17 20:16 94 T-piece 07/26/17 19:28 37.3 112 20 137/76 92 Room Air Physical Exam GENERAL: Patient is in no acute distress. HEENT: No acute trauma, normocephalic atraumatic, mucous membranes moist, no nasal congestion, no scleral icterus. NECK: No stridor, no adenopathy, no meningismus, trachea is midline. LUNGS: Diminished breath sounds but equal bilaterally. Scattered wheezing and rhonchi bilaterally. Moist cough noted. HEART: Tachycardic with regular rhythm, no murmurs. ABDOMEN: Soft, nontender, bowel sounds positive, no hernias, no peritonitis. EXTREMITIES: No cyanosis or edema, full range of motion of all the joints without pain or difficulty, no signs for acute trauma. NEUROLOGIC: Oriented x 3, no acute motor or sensory deficits, no focal weakness. SKIN: No rash, no jaundice, no diaphoresis. Medical Decision & Procedures ER Provider Diagnostic Interpretation: X-ray results as stated below per interpretation by me and the radiologist: SINGLE VIEW CHEST CLINICAL HISTORY: Sepsis. FINDINGS: An AP, portable, upright chest radiograph is compared to study dated 07/19/2017. Correlation is made with chest CT dated 05/01/2011. The examination is degraded by portable technique and patient rotation. Density within the superior mediastinum corresponds to a large thyroid goiter when correlated with previous chest CT. The heart is top normal for projection. The pulmonary vasculature is noncongested. A large hiatal hernia is noted. Chronic interstitial thickening end foci of parenchymal scarring are similar to previous. Patchy airspace opacities in the left upper lung and at the left lung base. No large pleural effusion or pneumothorax is seen. The skeletal structures are osteopenic. The bony thorax appears intact. IMPRESSION: 1. Patchy airspace opacities are seen in the left upper lung and at the left lung base. Cortical clinically for evidence of pneumonia. Radiographic follow-up to resolution is recommended. 2. Chronic parenchymal changes as above. 3. Hiatal hernia. Electronically signed by: Niko Wills M.D. 07/26/2017 8:17 PM Dictated Date/Time: 07/26/2017 8:14 PM Laboratory Results 07/26/17 20:11 Red Blood Count 3.89, Mean Corpuscular Volume 87.9, Mean Corpuscular Hemoglobin 29.6, Mean Corpuscular Hemoglobin Concent 33.6, Mean Platelet Volume 10.6, Neutrophils (%) (Auto) 81.3, Lymphocytes (%) (Auto) 8.2, Monocytes (%) (Auto) 9.7, Eosinophils (%) (Auto) 0.4, Basophils (%) (Auto) 0.1, Neutrophils # (Auto) 11.12, Lymphocytes # (Auto) 1.12, Monocytes # (Auto) 1.32, Eosinophils # (Auto) 0.05, Basophils # (Auto) 0.02 07/26/17 20:11 Test 07/26/17 20:11 07/26/17 20:17 White Blood Count 13.67 K/uL (4.8-10.8) Red Blood Count 3.89 M/uL (4.7-6.1) Hemoglobin 11.5 g/dL (14.0-18.0) Hematocrit 34.2 % (42-52) Mean Corpuscular Volume 87.9 fL (80-100) Mean Corpuscular Hemoglobin 29.6 pg (25-34) Mean Corpuscular Hemoglobin Concent 33.6 g/dl (32-36) Platelet Count 239 K/uL (130-400) Mean Platelet Volume 10.6 fL (7.4-10.4) Neutrophils (%) (Auto) 81.3 % Lymphocytes (%) (Auto) 8.2 % Monocytes (%) (Auto) 9.7 % Eosinophils (%) (Auto) 0.4 % Basophils (%) (Auto) 0.1 % Neutrophils # (Auto) 11.12 K/uL (1.4-6.5) Lymphocytes # (Auto) 1.12 K/uL (1.2-3.4) Monocytes # (Auto) 1.32 K/uL (0.11-0.59) Eosinophils # (Auto) 0.05 K/uL (0-0.5) Basophils # (Auto) 0.02 K/uL (0-0.2) RDW Standard Deviation 45.3 fL (36.4-46.3) RDW Coefficient of Variation 14.0 % (11.5-14.5) Immature Granulocyte % (Auto) 0.3 % Immature Granulocyte # (Auto) 0.04 K/uL (0.00-0.02) Prothrombin Time 11.4 SECONDS (9.0-12.0) Prothromb Time International Ratio 1.1 (0.9-1.1) Activated Partial Thromboplast Time 33.1 SECONDS (21.0-31.0) Partial Thromboplastin Ratio 1.3 Anion Gap 7.0 mmol/L (3-11) Est Creatinine Clear Calc Drug Dose 30.0 ml/min Estimated GFR () 41.7 Estimated GFR (Non- 36.0 BUN/Creatinine Ratio 16.5 (10-20) Calcium Level 8.9 mg/dl (8.5-10.1) Total Bilirubin 0.7 mg/dl (0.2-1) Aspartate Amino Transf (AST/SGOT) 23 U/L (15-37) Alanine Aminotransferase (ALT/SGPT) 29 U/L (12-78) Alkaline Phosphatase 77 U/L (45-117) Total Protein 7.5 gm/dl (6.4-8.2) Albumin 3.2 gm/dl (3.4-5.0) Globulin 4.3 gm/dl (2.5-4.0) Albumin/Globulin Ratio 0.8 (0.9-2) Bedside Lactic Acid Venous 0.85 mmol/L (0.90-1.70) Laboratory results reviewed by me. Medications Administered Medications (Trade) Dose Ordered Sig/Sonal Route Start Time Stop Time Status Last Admin Dose Admin Sodium Chloride 500 ml @ 999 mls/hr Q31M ONCE IV 07/26/17 19:44 07/26/17 20:14 DC 07/26/17 19:44 999 MLS/HR Levofloxacin (Levaquin / D5W) 750 mg NOW STAT IV 07/26/17 20:24 07/26/17 20:25 DC 07/26/17 20:37 750 MG Sodium Chloride 500 ml @ 999 mls/hr Q31M STAT IV 07/26/17 21:12 07/26/17 21:42 DC 07/26/17 21:12 999 MLS/HR ECG Indication: weakness Rate (beats per minute): 111 Rhythm: sinus tachycardia Findings: no acute ischemic change, no ectopy, other (LVH present) ED Course 1940: The patient was evaluated in room B04B. A complete history and physical exam was performed. 1943: Ordered Sodium Chloride 500 ml @ 999 mls/hr IV. 2023: Ordered Levofloxacin 750 mg IV. 2111: Ordered Sodium Chloride 500 ml @ 999 mls/hr IV. 2124: I reevaluated the patient and updated him on his results. I discussed the treatment plan and he agrees. The patient will be further evaluated. 2129: I discussed the patient's case with Dr. Aaron, [facility] Hospitalist. He understands the patient's condition and agrees to accept the patient. The patient will be further evaluated. Medical Decision The patient is a 82 year old male who presents to the ED with complaints of constant general illness that began 10 days ago. Differential diagnoses considered include bronchitis, pneumonia, CHF, pneumothorax, sepsis, dehydration , electrolyte imbalance, and anemia. There is a mild leukocytosis, this could be consistent with infection. No worrisome anemia. Renal panel testing shows some acute renal failure/ dehydration. No hepatitis noted on our testing. No coagulopathy. Lactic acid level was not elevated making sepsis less likely. EKG shows a sinus tachycardia , no acute ischemia. Cardiac enzyme testing times one is not consistent with acute cardiac injury. Chest x-ray shows a left sided pneumonia, no pneumothorax , CHF or mediastinal widening. Blood cultures are pending. The patient received IV saline and IV Levaquin. He is tachycardic, has a leukocytosis, he is in some mild acute renal failure and has a left-sided pneumonia. He has a low O2 saturation with a history of COPD. I do think a hospital stay is warranted. I spoke to the patient and the director of casework. The on-call hospitalist was consulted. Medication Reconcilliation Current Medication List: was personally reviewed by me Blood Pressure Screening Patient's blood pressure: Elevated blood pressure Blood pressure disposition: Elevated BP felt to be situational Consults Time Called: 2129 Consulting Physician: Dr. Aaron, [facility] Hospitalist Returned Call: 2129 I discussed the patient's case with Dr. Aaron [facility] Hospitalist. He understands the patient's condition and agrees to accept the patient. The patient will be further evaluated. Impression Primary Impression: PNA (pneumonia) Additional Impressions: Acute renal failure Dehydration Tachycardia Scribe Attestation The scribe's documentation has been prepared under my direction and personally reviewed by me in its entirety. I confirm that the note above accurately reflects all work, treatment, procedures, and medical decision making performed by me. Departure Information Dispostion Being Evaluated By Hospitalist Referrals Parveen Lopez M.D. (PCP) Patient Instructions My [facility] Problem Qualifiers
--- NOTE | 2017-07-26 20:19 | DIAGNOSTIC IMAGING REPORT ---
SINGLE VIEW CHEST CLINICAL HISTORY: Sepsis. FINDINGS: An AP, portable, upright chest radiograph is compared to study dated 07/19/2017. Correlation is made with chest CT dated 05/01/2011. The examination is degraded by portable technique and patient rotation. Density within the superior mediastinum corresponds to a large thyroid goiter when correlated with previous chest CT. The heart is top normal for projection. The pulmonary vasculature is noncongested. A large hiatal hernia is noted. Chronic interstitial thickening end foci of parenchymal scarring are similar to previous. Patchy airspace opacities in the left upper lung and at the left lung base. No large pleural effusion or pneumothorax is seen. The skeletal structures are osteopenic. The bony thorax appears intact. IMPRESSION: 1. Patchy airspace opacities are seen in the left upper lung and at the left lung base. Cortical clinically for evidence of pneumonia. Radiographic follow-up to resolution is recommended. 2. Chronic parenchymal changes as above. 3. Hiatal hernia. Electronically signed by: Niko Wills M.D. 07/26/2017 8:17 PM Dictated Date/Time: 07/26/2017 8:14 PM
[2017-07-26] MEDS ORDERED: LEVAQUIN 750MG / 150ML D5W IV STA (20:24)
[2017-07-26 20:52] LABS: INR 1.1 (0.9-1.1); PARTIAL THROMBOPLASTIN RATIO 1.3; PROTHROMBIN TIME (PATIENT) 11.4 SECONDS (9.0-12.0)
[2017-07-26] MEDS ORDERED: CLOP1TAB15 PO (20:52)
[2017-07-26 20:56] LABS: BASO % 0.1 %; BASO ABS # 0.02 K/uL (0-0.2); COMPLETE YES; EOS % 0.4 %; HEMATOCRIT 34.2 % (42-52); IG% 0.3 %; LYMPH % 8.2 %; LYMPH ABS # 1.12 K/uL (1.2-3.4); MEAN CELL VOLUME 87.9 fL (80-100); MEAN CORPUSCULAR HEMOGLOBIN 29.6 pg (25-34); MEAN CORPUSCULAR HGB CONC 33.6 g/dl (32-36); MEAN PLATELET VOLUME 10.6 fL (7.4-10.4); MONO % 9.7 %; NEUT % 81.3 %; PLATELET COUNT 239 K/uL (130-400); RED BLOOD COUNT 3.89 M/uL (4.7-6.1); WHITE BLOOD COUNT 13.67 K/uL (4.8-10.8)
[2017-07-26 21:04] LABS: BUN/CREATININE RATIO 16.5 (10-20); CALCIUM 8.9 mg/dl (8.5-10.1); CREATININE 1.71 mg/dl (0.60-1.40); POTASSIUM 3.9 mmol/L (3.5-5.1)
[2017-07-26 21:07] LABS: ALB/GLOB RATIO 0.8 (0.9-2)
[2017-07-26] MEDS ORDERED: SODIUM CHLORIDE 0.9% 500ML 500 ML IV STA (21:12)
[2017-07-26] MEDS ORDERED: ACETAMINOPHEN 325 MG TAB PO PRN (22:00)
[2017-07-26] MEDS ORDERED: POLYETHYLENE (MIRALAX) 17 GM PACK PO PRN (22:00)
[2017-07-26] MEDS ORDERED: MAGNESIUM HYDROXIDE SUSP 30 ML UDC PO PRN (22:00)
[2017-07-26] MEDS ORDERED: ALUMINUM/MAGNESIUM/SIMETH (MAALOX MAX) 30 ML UDC PO PRN (22:00)
[2017-07-26] MEDS ORDERED: ONDANSETRON INJ 2 MG/ML 2 ML VIAL IV PRN (22:00)
[2017-07-26] MEDS ORDERED: LORAZEPAM 0.5 MG TAB PO PRN (22:00)
--- NOTE | 2017-07-26 22:57 | History and Physical ---
History & Physical Date & Time of Service: Jul 26, 2017 at 22:20 Chief Complaint: Dehydration, Tachy, Congestion, Fever Primary Care Physician: Parveen Lopez M.D. History of Present Illness Source: patient 82 y/o M Hx HPL, HTN, asthma, anemia, GERD, CVA with residual right weakness . Pt presents with a progressive cough, fever and SOB x 2 days. He denies P , N/V or dysuria. Initial CXR is consistent with acute L multilobar PNM. Initial labs indicate BORIS. 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 Noncontributory Social History Smoking Status: Never Smoker Drug Use: none Marital Status: Occupational Status: retired Immunizations History of Influenza Vaccine: Yes Influenza Vaccine Date: Aug 30, 2013 History of Tetanus Vaccine?: Unknown History of Pneumococcal: Yes History of Hepatitis B Vaccine: No Multi-Drug Resistant Organisms History of MDRO: No Allergies Coded Allergies: Sulfa Antibiotics (Verified Allergy, Intermediate, RASH, 07/26/17) Home Medications Scheduled Budesonide/Formoterol Fumarate (Symbicort 160-4.5 Mcg/Act), 2 PUFFS INH BID Clopidogrel (Plavix), 75 MG PO QAM Finasteride (Proscar), 5 MG PO HS Lisinopril (Lisinopril), 10 MG PO QAM Montelukast Sodium (Singulair), 10 MG PO HS Multivitamins/Minerals (Mvi With Minerals), 1 TAB PO QAM Ocuvite Preservision (Ocuvite Preservision), 1 TAB PO BID Omeprazole (Omeprazole), 20 MG PO QAM Simvastatin (Zocor), 40 MG PO QPM Tamsulosin HCl (Tamsulosin HCl), 0.4 MG PO QAM Review of Systems Constitutional: + fever, No chills, No sweats Eyes: No worsening of vision ENT: No hearing loss, No unusual epistaxis, No nasal symptoms Respiratory: + cough, + sputum, + shortness of breath Cardiovascular: No chest pain, No orthopnea, No PND Abdomen: No pain, No nausea, No vomiting Musculoskeletal: No joint pain Genitourinary - Male: No hematuria, No dysuria Neurologic: No memory loss, No paralysis, No weakness Psychiatric: No depression symptoms Endocrine: No fatigue Hematologic / Lymphatic: No abnormal bleeding/bruising Integumentary: No rash Allergic / Immunologic: No environmental allergies Physical Exam Vital Signs Date Time Temp Pulse Resp B/P (MAP) Pulse Ox O2 Delivery O2 Flow Rate FiO2 07/26/17 21:54 100 20 136/76 93 Room Air 07/26/17 20:38 106 18 148/81 93 Room Air 07/26/17 20:16 94 T-piece 07/26/17 19:28 37.3 112 20 137/76 92 Room Air General Appearance: WD/WN, no apparent distress Head: normocephalic Eyes: normal inspection ENT: normal ENT inspection, pharynx normal Neck: supple, no JVD Respiratory/Chest: chest non-tender, lungs clear, + pertinent finding (Poor b/ l air movement - cannot discern any clear crackles/wheezing) Cardiovascular: no edema, no gallop, + tachycardia Abdomen/GI: normal bowel sounds, non tender, soft Back: normal inspection, no CVA tenderness, no muscle spasm, normal range of motion Extremities/Musculoskelatal: normal inspection, no calf tenderness, normal capillary refill, no pedal edema, normal range of motion Neurologic/Psych: insolvency consultant II-XII nml as tested, oriented x 3, + pertinent finding ( There is mild chronic weakness of the R upper extremity) Skin: normal color, warm/dry, no rash Diagnostics Laboratory Results Results Past 24 Hours Test 07/26/17 20:11 07/26/17 20:17 Range/Units White Blood Count 13.67 4.8-10.8 K/uL Red Blood Count 3.89 4.7-6.1 M/uL Hemoglobin 11.5 14.0-18.0 g/dL Hematocrit 34.2 42-52 % Mean Corpuscular Volume 87.9 80-100 fL Mean Corpuscular Hemoglobin 29.6 25-34 pg Mean Corpuscular Hemoglobin Concent 33.6 32-36 g/dl Platelet Count 239 130-400 K/uL Mean Platelet Volume 10.6 7.4-10.4 fL Neutrophils (%) (Auto) 81.3 % Lymphocytes (%) (Auto) 8.2 % Monocytes (%) (Auto) 9.7 % Eosinophils (%) (Auto) 0.4 % Basophils (%) (Auto) 0.1 % Neutrophils # (Auto) 11.12 1.4-6.5 K/uL Lymphocytes # (Auto) 1.12 1.2-3.4 K/uL Monocytes # (Auto) 1.32 0.11-0.59 K/uL Eosinophils # (Auto) 0.05 0-0.5 K/uL Basophils # (Auto) 0.02 0-0.2 K/uL RDW Standard Deviation 45.3 36.4-46.3 fL RDW Coefficient of Variation 14.0 11.5-14.5 % Immature Granulocyte % (Auto) 0.3 % Immature Granulocyte # (Auto) 0.04 0.00-0.02 K/uL Prothrombin Time 11.4 9.0-12.0 SECONDS Prothromb Time International Ratio 1.1 0.9-1.1 Activated Partial Thromboplast Time 33.1 21.0-31.0 SECONDS Partial Thromboplastin Ratio 1.3 Sodium Level 139 136-145 mmol/L Potassium Level 3.9 3.5-5.1 mmol/L Chloride Level 107 98-107 mmol/L Carbon Dioxide Level 25 21-32 mmol/L Anion Gap 7.0 3-11 mmol/L Blood Urea Nitrogen 28 7-18 mg/dl Creatinine 1.71 0.60-1.40 mg/dl Est Creatinine Clear Calc Drug Dose 30.0 ml/min Estimated GFR () 41.7 Estimated GFR (Non- 36.0 BUN/Creatinine Ratio 16.5 10-20 Random Glucose 101 70-99 mg/dl Calcium Level 8.9 8.5-10.1 mg/dl Total Bilirubin 0.7 0.2-1 mg/dl Aspartate Amino Transf (AST/SGOT) 23 15-37 U/L Alanine Aminotransferase (ALT/SGPT) 29 12-78 U/L Alkaline Phosphatase 77 45-117 U/L Total Protein 7.5 6.4-8.2 gm/dl Albumin 3.2 3.4-5.0 gm/dl Globulin 4.3 2.5-4.0 gm/dl Albumin/Globulin Ratio 0.8 0.9-2 Bedside Lactic Acid Venous 0.85 0.90-1.70 mmol/L Microbiology Results 10/23/17 Blood Culture, Received Pending 07/26/17 Blood Culture, Received Pending Diagnostic Radiology CXR: L upper and lower lobe consolidations EKG Sinus tach ~ 100 BPM Impression Assessment and Plan 82 y/o M Hx HPL, HTN, asthma, GERD, anemia, CVA with residual right weakness . Pt presents with a progressive cough, fever and SOB x 2 days. He denies P , N/V or dysuria. Initial CXR is consistent with acute L multilobar PNM. Initial labs indicate BORIS. 1) PNM - Placed on Levaquin, PRN Neb - sputum/blood cultures pending - will check a rapid flu. 2) Asthma - will remain on current inhalers in addition to PRN nebs. Is not currently wheezing but would consider steroids if pt worsens or exhibits hypoxia. 3) BORIS - likely prerenal - has occured with previous acute illnesses - IVF - recheck BMP AM 4) Recent CVA - cont Plavix, statin 5) HTN - cont Lisinopril 6) Chronic anemia - Hb at baseline - trend AM Full code - Heparin prophylaxis Total time for this admit including review of labs, meds, imaging, EKG, records - discussion with pt and ER attending - 39 min Level of Care Med/Surg Resuscitation Status FULL RESUSCITATION VTE Prophylaxis VTE Risk Assessment Done? Y/N: Yes Risk Level: Moderate Given or contraindicated: Unfractionated heparin SQ
[2017-07-26 23:56] VITALS: BP 151/80; PULSE 100; TEMP 37.2; O2SAT 94
[2017-07-27] VITALS (7 sets, daily range): BP systolic 129–161; BP diastolic 77–82; PULSE 91–102; TEMP 37.2–37.3; O2SAT 92–95; Ht 170.2 cm; Wt 68.4 kg
[2017-07-27] MEDS ORDERED: SODIUM CHLORIDE 0.9% 1000ML 1,000 ML IV SCH ×2 (00:45→12:45)
[2017-07-27] MEDS ORDERED: LEVOFLOXACIN CONSULT ACTIVE PRN (02:00)
[2017-07-27] MEDS: LEVALBUTEROL 1.25MG/0.5ML NEB INH PRN (03:41)
[2017-07-27] MEDS: HEPARIN SOD 5000 UNIT/0.5 ML CARP SQ SCH ×3 (06:11→21:03)
[2017-07-27 07:14] LABS: MEAN CELL VOLUME 87.4 fL (80-100); MEAN CORPUSCULAR HEMOGLOBIN 28.4 pg (25-34); MEAN CORPUSCULAR HGB CONC 32.5 g/dl (32-36); MEAN PLATELET VOLUME 9.7 fL (7.4-10.4); PLATELET COUNT 190 K/uL (130-400); RED BLOOD COUNT 3.66 M/uL (4.7-6.1); WHITE BLOOD COUNT 11.97 K/uL (4.8-10.8)
[2017-07-27 07:44] LABS: BUN/CREATININE RATIO 14.3 (10-20); CALCIUM 8.3 mg/dl (8.5-10.1); CREATININE 1.58 mg/dl (0.60-1.40); POTASSIUM 3.6 mmol/L (3.5-5.1)
[2017-07-27] MEDS ORDERED: PNEUMOCOCCAL ADMINISTRATION CHARGE ONE (08:00)
[2017-07-27] MEDS ORDERED: PNEUMOCOCCAL POLYSACCHARIDES 25 MCG/0.5 ML VIAL/SYR IM. ONE (08:00)
[2017-07-27] MEDS ORDERED: CEROVITE ADV FORMULA TAB PO SCH (08:00)
[2017-07-27] MEDS ORDERED: NON-FORMULARY MEDICATION (Omeprazole 20 MG) PO SCH (08:00)
[2017-07-27] MEDS: CLOPIDOGREL BISULFATE 75 MG TAB PO SCH (08:18)
[2017-07-27] MEDS: CEROVITE ADV FORMULA TAB PO SCH ×2 (08:18→20:57)
[2017-07-27] MEDS: PANTOprazole SOD 40 MG TAB PO SCH (08:18)
[2017-07-27] MEDS: LISINOPRIL 10 MG TAB PO SCH (08:18)
[2017-07-27] MEDS: TAMSULOSIN HCL 0.4 MG CAP PO SCH (08:18)
[2017-07-27] MEDS: BUDESONIDE/FORMOTEROL FUMARATE 160/4.5 60 PUFFS/INHALER INH SCH ×2 (08:29→20:57)
[2017-07-27] MEDS ORDERED: NURSING VERBAL MED ORDER ONE (12:30)
--- NOTE | 2017-07-27 13:33 | Clinical Documentation Query ---
CLINICAL DOCUMENTATION QUERY Dr. PRICE, In your clinical opinion is this patient being managed for: ( ) Chronic kidney disease, stage 3 ( ) Not Agree ( ) Other explanation of clinical findings (Please Explain) ( ) Unable to determine (Please Define) ( ) Need to Discuss The medical record reflects the following clinical findings, treatment, and risk factors. Clinical Indicators: 82 yo male presenting with pneumonia and BORIS. Review of historical GFR over the past 2 years shows a range of 36-50. Treatment: monitor PRP's, treat comorbid diseases Risk Factors: age, HTN, CVA, COPD Please clarify and document your clinical opinion in the progress notes and discharge summary. Terms such as "probable", "suspected", "likely", "questionable", "possible", or "still to be ruled out" are acceptable. IF IN AGREEMENT, YOU MUST DOCUMENT ABOVE DIAGNOSTIC STATEMENT IN DAILY PROGRESS NOTES AND DISCHARGE SUMMARY. This document is not part of the patient's record. Thank You, Lilian Dan, RN [phone]
--- NOTE | 2017-07-27 16:16 | Progress Note ---
Subjective Date of Service: Jul 27, 2017. Subjective Pt evaluation today including: conversation w/ patient, conversation w/ family , physical exam, chart review, lab review, review of studies Patient is here for pneumonia. Patient reprs feeling better but not at 100%. Patient states having some SOB on exertion, but this is decreased Patient continues to have cough, but has no production. Patient denies any fever, chills, nausea, vomiting. Problem List Medical Problems: (1) Acute renal failure Status: Acute (2) CVA (cerebral vascular accident) Status: Acute (3) Dehydration Status: Acute (4) Dehydration Status: Acute (5) PNA (pneumonia) Status: Acute (6) Tachycardia Status: Acute Review of Systems Constitutional: No fever, No chills ENT: No hearing loss, No unusual epistaxis Respiratory: No cough, No sputum Abdomen: No pain, No nausea Neurologic: No memory loss, No paralysis Psychiatric: No depression symptoms, No anhedonism Heme: No abnormal bleeding/bruising Endo: No fatigue All Other Systems: Reviewed and Negative Medications I reviewed medications from the chart. Objective Vital Signs Date Time Temp Pulse Resp B/P (MAP) Pulse Ox O2 Delivery O2 Flow Rate FiO2 07/27/17 15:06 37.2 91 18 139/77 (97) 93 Room Air 07/27/17 08:30 142/81 (101) 07/27/17 08:00 Room Air 07/27/17 07:40 37.3 102 18 161/82 (108) 92 Room Air 07/27/17 03:41 102 20 95 Room Air 07/27/17 00:58 100 129/81 07/27/17 00:05 95 Room Air 07/26/17 23:56 37.2 100 17 151/80 (103) 94 Room Air 07/26/17 22:43 37.3 100 20 136/76 93 07/26/17 21:54 100 20 136/76 93 Room Air 07/26/17 20:38 106 18 148/81 93 Room Air 07/26/17 20:16 94 T-piece 07/26/17 19:28 37.3 112 20 137/76 92 Room Air Physical Exam General Appearance: WD/WN, no apparent distress Neck: supple, no adenopathy Respiratory/Chest: chest non-tender, no respiratory distress, no accessory muscle use, + rhonchi, + wheezing (bilateral) Cardiovascular: regular rate, rhythm, no edema, no gallop Abdomen: normal bowel sounds, non tender, soft Extremities: normal range of motion, non-tender Skin: normal color Laboratory Results Last 24 Hours Test 07/26/17 20:11 07/26/17 20:17 07/27/17 06:55 White Blood Count 13.67 K/uL 11.97 K/uL Red Blood Count 3.89 M/uL 3.66 M/uL Hemoglobin 11.5 g/dL 10.4 g/dL Hematocrit 34.2 % 32.0 % Mean Corpuscular Volume 87.9 fL 87.4 fL Mean Corpuscular Hemoglobin 29.6 pg 28.4 pg Mean Corpuscular Hemoglobin Concent 33.6 g/dl 32.5 g/dl Platelet Count 239 K/uL 190 K/uL Mean Platelet Volume 10.6 fL 9.7 fL Neutrophils (%) (Auto) 81.3 % Lymphocytes (%) (Auto) 8.2 % Monocytes (%) (Auto) 9.7 % Eosinophils (%) (Auto) 0.4 % Basophils (%) (Auto) 0.1 % Neutrophils # (Auto) 11.12 K/uL Lymphocytes # (Auto) 1.12 K/uL Monocytes # (Auto) 1.32 K/uL Eosinophils # (Auto) 0.05 K/uL Basophils # (Auto) 0.02 K/uL RDW Standard Deviation 45.3 fL 44.5 fL RDW Coefficient of Variation 14.0 % 13.9 % Immature Granulocyte % (Auto) 0.3 % Immature Granulocyte # (Auto) 0.04 K/uL Prothrombin Time 11.4 SECONDS Prothromb Time International Ratio 1.1 Activated Partial Thromboplast Time 33.1 SECONDS Partial Thromboplastin Ratio 1.3 Sodium Level 139 mmol/L 141 mmol/L Potassium Level 3.9 mmol/L 3.6 mmol/L Chloride Level 107 mmol/L 110 mmol/L Carbon Dioxide Level 25 mmol/L 25 mmol/L Anion Gap 7.0 mmol/L 6.0 mmol/L Blood Urea Nitrogen 28 mg/dl 23 mg/dl Creatinine 1.71 mg/dl 1.58 mg/dl Est Creatinine Clear Calc Drug Dose 30.0 ml/min 32.5 ml/min Estimated GFR () 41.7 45.9 Estimated GFR (Non- 36.0 39.6 BUN/Creatinine Ratio 16.5 14.3 Random Glucose 101 mg/dl 157 mg/dl Calcium Level 8.9 mg/dl 8.3 mg/dl Total Bilirubin 0.7 mg/dl Aspartate Amino Transf (AST/SGOT) 23 U/L Alanine Aminotransferase (ALT/SGPT) 29 U/L Alkaline Phosphatase 77 U/L Total Protein 7.5 gm/dl Albumin 3.2 gm/dl Globulin 4.3 gm/dl Albumin/Globulin Ratio 0.8 Bedside Lactic Acid Venous 0.85 mmol/L Magnesium Level 2.0 mg/dl Assessment and Plan 82 y/o M Hx HPL, HTN, asthma, GERD, anemia, CVA with residual right weakness . Pt presents with a progressive cough, fever and SOB x 2 days. He denies P , N/V or dysuria. Initial CXR is consistent with acute L multilobar PNM. Initial labs indicate BORIS. 1) Pneumonia - Placed on IV Levaquin. Due to CKD, and low GFR. His dose is 750 mg Q48 hours. Patient will get repeat dose the following day. Patient does not appear to be hypoxic, but his 02 sat has been hovering around the low 90s at rest. Will recommend ambulation and possible 2 step in morning if he desaturates when he walks with the nurses. PRN Neb - sputum/blood cultures pending - will check a rapid flu. 2) Asthma - will remain on current inhalers in addition to PRN nebs. Patient is improving, will hold off steroids for now. 3) BORIS on CKD stage 3 - likely prerenal - May be multifactorial with pneumonia and dehydration. Will continue with IVFs today. Baseline creatinine is 1.4 currently around 1.7 4) Recent CVA - cont Plavix, statin 5) HTN - cont Lisinopril. at goal. 6) Chronic anemia - Hb at baseline - trend AM 7) Family discussed that patient exhibits depression symptoms, ever since the diagnosis of his stroke. Will monitor. This may be initiated by PCP. Continued [facility] stay due to: other (continuing treatment for pneumonia. ambulatory dysfunction, low 02 sat) Discharge planning: home
[2017-07-27] MEDS: SODIUM CHLORIDE 0.9% 1000ML 1,000 ML IV SCH ×2 (19:47→20:55)
[2017-07-27] MEDS ORDERED: FINASTERIDE 5 MG TAB PO SCH (21:00)
[2017-07-27] MEDS ORDERED: SIMVASTATIN 40 MG TAB PO SCH (21:00)
[2017-07-27] MEDS ORDERED: MONTELUKAST SOD 10 MG TAB PO SCH (21:00)
[2017-07-28] VITALS (7 sets, daily range): BP systolic 135–143; BP diastolic 79–80; PULSE 88–98; TEMP 37–37.7; O2SAT 92–93
[2017-07-28] MEDS: HEPARIN SOD 5000 UNIT/0.5 ML CARP SQ SCH (05:43)
[2017-07-28] MEDS: LEVALBUTEROL 1.25MG/0.5ML NEB INH PRN (05:52)
[2017-07-28] MEDS: PANTOprazole SOD 40 MG TAB PO SCH (08:45)
[2017-07-28] MEDS: TAMSULOSIN HCL 0.4 MG CAP PO SCH (08:45)
[2017-07-28] MEDS: CLOPIDOGREL BISULFATE 75 MG TAB PO SCH (08:45)
[2017-07-28] MEDS: CEROVITE ADV FORMULA TAB PO SCH (08:45)
[2017-07-28] MEDS: SODIUM CHLORIDE 0.9% 1000ML 1,000 ML IV SCH (08:46)
[2017-07-28] MEDS: BUDESONIDE/FORMOTEROL FUMARATE 160/4.5 60 PUFFS/INHALER INH SCH (08:46)
[2017-07-28] MEDS: LISINOPRIL 10 MG TAB PO SCH (08:46)
[2017-07-28] MEDS ORDERED: METHYLPREDNISOLONE IV 40 MG in SYRINGE 0 ML IV ONE (09:15)
[2017-07-28] MEDS ORDERED: PRED10TA PO (10:39)
[2017-07-28] MEDS ORDERED: LVQ750 PO (10:39)
--- NOTE | 2017-07-28 10:41 | Discharge Instructions ---
Discharge Instructions Date of Service Jul 28, 2017. Admission Reason for Admission: Acute Renal Failure, Pna Discharge Discharge Diagnosis / Problem: Pneumonia Discharge Goals Goal(s): Decrease discomfort, Improve function, Increase independence Activity Recommendations Activity Limitations: resume your previous activity . Instructions / Follow-Up Instructions / Follow-Up F/U with PCP within 7 days Current Hospital Diet Patient's current hospital diet: AHA Diet (Heart Healthy) Discharge Diet Recommended Diet: AHA Diet (Heart Healthy) Pending Studies Studies pending at discharge: no Laboratory Results Hemoglobin A1c Test 05/17/17 06:22 Range/Units Estimated Average Glucose 114 mg/dl Hemoglobin A1c 5.6 4.5-5.6 % Lipid Panel Test 05/17/17 06:22 Range/Units Triglycerides Level 104 0-150 mg/dl Cholesterol Level 185 0-200 mg/dl HDL Cholesterol 99 mg/dl Cholesterol/HDL Ratio 1.9 LDL Cholesterol, Calculated 65 mg/dl Medical Emergencies . Who to Call and When: Medical Emergencies: If at any time you feel your situation is an emergency, please call 911 immediately. . Non-Emergent Contact Non-Emergency issues call your: Primary Care Provider Call Non-Emergent contact if: you have any medication questions (SOB worsens) . . "Provider Documentation" section prepared by Pelon Bernstein. . VTE Core Measure Inpt VTE Proph given/why not?: Unfractionated heparin SQ
[2017-07-28] MEDS ORDERED: LEVOFLOXACIN 750 MG TAB PO ONE (11:00)
[2017-07-28] MEDS ORDERED: LEVOFLOXACIN / D5W 750 MG in PREMIXED IN D5W 150 ML IV SCH (21:00)
--- NOTE | 2017-07-29 14:24 | Discharge Summary ---
Discharge Summary Date of Service Jul 28, 2017. Discharge Summary Admission Date: Jul 26, 2017 at 21:53 Discharge Date: Jul 28, 2017 Discharge Disposition: Home Principal Diagnosis: Left upper lobe pneumonia Problems/Secondary Diagnoses: Hypertension/ Hyperlipidemia. Immunizations: Have You Had Influenza Vaccine: Yes Influenza Vaccine Date: Aug 30, 2013 History of Tetanus Vaccine?: Unknown History of Pneumococcal: Yes History of Hepatitis B Vaccine: No Medication Reconciliation New Medications: Prednisone Tab (Prednisone) 10 Mg Tab 50 MG PO DAILY for 15 Days, #45 TAB Take 5 tab once day 1-3 Take 4 tab once day 4-6 Take 3 tab once day 7-9 Take 2 tab once day 10-12 take 1 tab once day 13-15 Levofloxacin (Levofloxacin) 750 Mg Tab 750 MG PO Q2D for 6 Days, #3 TAB Take 1 tablet every 48 hours. (Every other day) Continued Medications: Budesonide/Formoterol Fumarate (Symbicort 160-4.5 Mcg/Act) 60 Puffs/Inhaler Aero 2 PUFFS INH BID Clopidogrel (Plavix) 75 Mg Tab 75 MG PO QAM, TAB 0900 Finasteride (Proscar) 5 Mg Tab 5 MG PO HS, TAB 2100 Lisinopril (Lisinopril) 10 Mg Tab 10 MG PO QAM 0900 Montelukast Sodium (Singulair) 10 Mg Tab 10 MG PO HS, TAB 2100 Multivitamins/Minerals (Mvi With Minerals) Tab 1 TAB PO QAM, TAB 0900 Ocuvite Preservision (Ocuvite Preservision) 1 Tab Tab 1 TAB PO BID, TAB 6949-9020 Omeprazole (Omeprazole) 20 Mg Tab 20 MG PO QAM 0600 Simvastatin (Zocor) 40 Mg Tab 40 MG PO QPM, TAB 1700 Tamsulosin HCl (Tamsulosin HCl) 0.4 Mg Cap 0.4 MG PO QAM 0900 Discharge Exam Review of Systems: Constitutional: No fever, No chills Respiratory: + cough, + sputum, No wheezing Cardiovascular: No chest pain, No orthopnea, No PND Abdomen: No pain, No nausea, No vomiting Neurologic: No memory loss, No paralysis Endocrine: No fatigue, No excessive thirst Integumentary: No rash, No itch Physical Exam: General Appearance: WD/WN, no apparent distress Neck: supple, no adenopathy Respiratory/Chest: chest non-tender, no respiratory distress, no accessory muscle use, + rhonchi Cardiovascular: regular rate, rhythm, no edema, no gallop, no murmur Abdomen / GI: normal bowel sounds, non tender Extremities: normal inspection Neurologic/Psychiatric: alert Skin: normal color, warm/dry Lymphatic: no adenopathy Hospital Course 82 y/o M Hx HPL, HTN, asthma, GERD, anemia, CVA with residual right weakness . Pt presents with a progressive cough, fever and SOB x 2 days. He denies P , N/V or dysuria. Initial CXR is consistent with acute L multilobar PNM. Initial labs indicate BORIS. 1) Pneumonia - Placed on IV Levaquin. Due to CKD, and low GFR. His dose is 750 mg Q48 hours. Patient does not appear to be hypoxic, but his 02 sat has been hovering around the 90s.- On day of discharge, patient ambulated and O2 sat was in 95. No need for 2 step. PRN Neb - sputum/blood cultures negative. will continue with cris levofloxacin for 6 more days. 2) Asthma - will remain on current inhalers in addition to PRN nebs. Patient is improving, will discharge patient on home steroids for 15 days and titrate. 3) BORIS on CKD stage 3 - likely prerenal - May be multifactorial with pneumonia and dehydration. Will continue with IVFs today. Baseline creatinine is 1.4 Peaked around 1.7. Currently 1.5; likely to continue to improve as this resolves. Recommend repeat BMP as outpatient. 4) Recent CVA - cont Plavix, statin 5) HTN - cont Lisinopril. at goal. 6) Chronic anemia - Hb at baseline - trend AM 7) Family discussed that patient exhibits depression symptoms, ever since the diagnosis of his stroke. Will monitor. Will defer management to PCP. Total Time Spent: Greater than 30 minutes This includes examination of the patient, discharge planning, medication reconciliation, and communication with other providers. Discharge Instructions Please refer to the electronic Patient Visit Report (Discharge Instructions) for additional information. Follow-Up F/U with PCP within 1 week. Additional Copies To Parveen Lopez M.D.
== END 2017-07-28 11:26 | disposition home or self-care (01) | DRG 194 ==
LOC: C.EDB 19:11 → C.4E 21:53 → ENRESERV 22:20
PROVIDERS: ADMIT Internal Medicine; ATTEND Internal Medicine Sports Medicine
DX: J18.9 Pneumonia, unspecified organism (principal); N17.9 Acute kidney failure, unspecified; I69.951 Hemiplegia and hemiparesis following unspecified cerebrovascular disease affecting right dominant side; D64.9 Anemia, unspecified; Z85.46 Personal history of malignant neoplasm of prostate; J45.909 Unspecified asthma, uncomplicated; I10 Essential (primary) hypertension; E86.0 Dehydration; G25.81 Restless legs syndrome; Z85.828 Personal history of other malignant neoplasm of skin; Z88.2 Allergy status to sulfonamides; E78.5 Hyperlipidemia, unspecified; K21.9 Gastro-esophageal reflux disease without esophagitis

== ENCOUNTER → 2017-07-26 | Outpatient (CLI) | payer OTHER ==
[~2017-07-26] MED LIST changes: +CLOP1TAB15 PO; +LVQ750 PO; +PRED10TA PO
[2017-07-26 12:12] LABS: BASO % 0.1 %; BASO ABS # 0.01 K/uL (0-0.2); COMPLETE YES; EOS % 0.1 %; HEMATOCRIT 36.6 % (42-52); IG% 0.2 %; LYMPH % 7.8 %; LYMPH ABS # 1.02 K/uL (1.2-3.4); MEAN CORPUSCULAR HEMOGLOBIN 29.3 pg (25-34); MEAN CORPUSCULAR HGB CONC 33.3 g/dl (32-36); MEAN PLATELET VOLUME 10.7 fL (7.4-10.4); MONO % 8.5 %; NEUT % 83.3 %; PLATELET COUNT 213 K/uL (130-400); RED BLOOD COUNT 4.16 M/uL (4.7-6.1)
[2017-07-26 12:46] LABS: ALB/GLOB RATIO 0.7 (0.9-2); ALKALINE PHOSPHATASE 76 U/L (45-117); ALT/SGPT 22 U/L (12-78); AST/SGOT 13 U/L (15-37); BLOOD UREA NITROGEN 24 mg/dl (7-18); BUN/CREATININE RATIO 14.2 (10-20); CALCIUM 8.7 mg/dl (8.5-10.1); CARBON DIOXIDE 22 mmol/L (21-32); CHLORIDE 109 mmol/L (98-107); CREATININE 1.67 mg/dl (0.60-1.40); GLUCOSE 113 mg/dl (70-99); POTASSIUM 3.9 mmol/L (3.5-5.1); SODIUM 142 mmol/L (136-145)
== END | disposition home or self-care (01) ==
LOC: C.LABBFT 09:55
PROVIDERS: ATTEND Internal Medicine
DX: C64.9 Malignant neoplasm of unspecified kidney, except renal pelvis (principal); I63.9 Cerebral infarction, unspecified

== ENCOUNTER → 2017-10-07 | Outpatient (CLI) | payer OTHER ==
[~2017-10-07] MED LIST changes: -ALBUAER INH; +CLOP1TAB15 PO; -CYNI1000 IM; -HYD50 PO; -KRIL1CAP7 PO; +LVQ750 PO; -PLV75 PO
--- NOTE | 2017-10-07 12:53 | DIAGNOSTIC IMAGING REPORT ---
VIDEO SWALLOW STUDY CLINICAL HISTORY: Stroke. Silent aspiration. COMPARISON STUDY: Video swallow study dated 07/13/2017. Fluoroscopy time: 2.2 minutes. FINDINGS: Fluoroscopic guidance was provided to the Department of Speech Pathology in performing a video swallow study. The patient consumed barium-impregnated pudding, cracker with paste, nectar thick liquids, as well as thin barium while the swallowing mechanism was observed in real-time. Esophageal dysmotility is observed. No penetration or aspiration was seen with the pudding or cracker with paste textures. There was pharyngeal penetration without kareem aspiration seen on the nectar thick liquid and thin barium textures. Vallecular retention was noted with the solid textures. IMPRESSION: 1. Pharyngeal penetration was seen with nectar thick liquid and thin barium. 2. No aspiration was seen. 3. Esophageal dysmotility and vallecular retention. 4. See dedicated Speech Pathology report for detailed findings and recommendations. Dictated: 10/07/2017 11:56 AM Transcribed: 10/07/2017 12:53 PM Mi Electronically signed by: Niko Wills M.D. 10/07/2017 1:11 PM Dictated Date/Time: 10/07/2017 11:56 AM
--- NOTE | 2017-10-07 13:11 | SWALLOWING EVALUATION ---
HISTORY: This 82 year old man was referred for a video swallow study at [facility] in order to rule out aspiration and identify the safest consistencies for optimal oral intake. This patient is well known to the [employer] department, as he is a known aspirator. His most recent video swallow study was on 07/13/17 (please refer to full report for details) which recommended a regular "slippery" diet and thin liquids only if a chin tuck was used, otherwise the patient would have SILENT aspiration. If unable to complete a chin tuck, nectar thick liquids would need to be utilized. He participated in outpatient speech therapy following this study, but reported he "got sick" and was re-admitted to [facility] from 07/26-07/28/17. The patient participated in a bedside evaluation during that stay, please refer to report for full details with similar recommendations as outlined above. He stated he has not had any speech therapy since his discharge from that hospitalization. Patient reported he uses a chin tuck with all swallows of liquids, and swallows twice. He stated he still uses thickener, but "Only uses a little bit" depending upon what he is drinking. Sometimes he has difficulty swallowing pills, and coughs them back up. Current diet at home is regular (did describe somewhat of a "slippery" diet) and thickened liquids (likely nectar thick, per patient's description). 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 PROCEDURE: The patient was seen in the Radiology Department of [facility] for the [facility]. Cursory examination of the oral cavity revealed upper and lower dentition. Movement of the articulators was generally weak. Speech was clear. The patient was seated on a stool and was viewed in the Lateral and the Anterior-Posterior (A-P) planes. Volitional phonation exercises completed in the A-P plane revealed bilateral vocal fold movement and vocal intensity within functional limits. In the lateral plane, the patient was given the following boluses: 1 tsp. thin liquid barium x 2 with chin tuck, single swallow thin liquid barium self-presented from the cup x (one with a chin tuck), 1 tsp. nectar-thick liquid barium, single swallow nectar-thick liquid barium self-presented from a cup x1 (with chin tuck), 1 tsp. barium pudding, and 1 club cracker coated in barium pudding. The patient was then repositioned into the A-P plane and given the following boluses: 1 tsp. nectar thick barium and 1 tsp. barium pudding. RESULTS: Oral Stage: Lip closure was adequate. The patient was able to maintain a cohesive liquid bolus upon command. Mastication and lingual motion for bolus transport was slowed. There was retention along the tongue and palate after the initial swallow. The initiation of the pharyngeal swallow was delayed and triggered when the bolus head reached the pyriforms. Pharyngeal Stage: Soft palate elevation was complete. Laryngeal elevation revealed partial superior movement of the thyroid cartilage and partial approximation of the arytenoids to the epiglottic base. Anterior hyoid excursion was partially reduced. Epiglottic deflection was complete. Laryngeal vestibular closure was incomplete, with a narrow column of contrast located in the vestibule at the height of the swallow. The pharyngeal stripping wave was present yet diminished. There was partial distention and duration to the opening of the pharyngoesophageal segment (PES). Tongue base retraction was reduced, with a narrow column of contrast located between the tongue base and pharyngeal wall during the swallow. There was retention located in the valleculae, along the laryngeal aspect of the epiglottis, and in the pyriforms after the swallow. There was evidence of laryngeal penetration and scant SILENT aspiration of thin and nectar thick liquids when taken in cups sips. When a chin tuck was used, there was reduced laryngeal penetration without aspiration. Retention located along the laryngeal aspect of the epiglottis, when cup sips were taken without a chin tuck, would trickle toward the open airway and eventually be aspirated (scant amounts). Verbal cues to complete a cough/throat clear were effective to expel the aspirated liquid from the airway. Retention of solids located in the valleculae did not clear with a second swallow. Some retention cleared with a thin liquid wash with a chin tuck. Aspiration is attributed to delayed swallow reflex, and reduced hyolaryngeal elevation/excursion. Weakened tongue base retraction is also a contributing to aspiration and vallecular retention of solids. Esophageal stage: There was mid to distal retention of barium in the esophagus, with retrograde flow below the PES. A liquid wash and time assisted to clear a majority of the retention. SUMMARY/RECOMMENDATIONS: The patient presents with moderate vernon-pharyngeal dysphagia. He also presents with signs and symptoms of esophageal dysfunction. The following is recommended: 1. Regular soft diet, slippery, and thin liquids. NO STRAWS. Avoid foods that are dry, thick, pasty, doughy. Add condiments to food such as sauce, gravy, etc to assist in making foods moist. 2. Aspiration and GERD precautions. Fully upright for meals and for 30 minutes after meals. Do not lay flat, elevate head of the bed to at least 30 degrees at all time, to include while sleeping. 3. Stringent oral care to include brushing all surfaces of the mouth and tongue prior to and after meals, and prior to bed, to reduce oral bacteria that can be aspirated in saliva. 4. Safe swallow strategies: Small bites/sips, alternate solids and liquids. MUST use a chin tuck with a liquid sips. Rest breaks while eating 5. Medications can be placed in a carrier such as applesauce or pudding. 6. Would benefit from follow up speech therapy services for further education and training on diet recommendations, safe swallow strategies, and generalized pharyngeal strengthening exercises (with focus on Ranjana Maneuver for improved tongue base retraction). Results and recommendations were discussed with the patient immediately following the study with verbal understanding. Reviewed information on a "slippery" diet and written education also provided. Patient was already familiar with this diet, and was able to describe aspiration/GERD precautions independently. Thank you for referral of this patient. Please contact me at if any additional information is needed.
== END | disposition home or self-care (01) ==
LOC: C.RAD 11:02
PROVIDERS: ATTEND Internal Medicine
DX: I63.9 Cerebral infarction, unspecified (principal); T17.900A Unspecified foreign body in respiratory tract, part unspecified causing asphyxiation, initial encounter; X58.XXXA Exposure to other specified factors, initial encounter; K22.4 Dyskinesia of esophagus

== ENCOUNTER → 2017-12-03 | Outpatient (CLI) | payer OTHER ==
[2017-12-03 12:18] LABS: BASO % 0.4 %; BASO ABS # 0.02 K/uL (0-0.2); EOS % 1.6 %; EOS ABS # 0.08 K/uL (0-0.5); HEMATOCRIT 37.7 % (42-52); HEMOGLOBIN 11.8 g/dL (14.0-18.0); LYMPH % 31.5 %; LYMPH ABS # 1.62 K/uL (1.2-3.4); MEAN CELL VOLUME 84.5 fL (80-100); MEAN CORPUSCULAR HEMOGLOBIN 26.5 pg (25-34); MEAN CORPUSCULAR HGB CONC 31.3 g/dl (32-36); MONO % 7.6 %; MONO ABS # 0.39 K/uL (0.11-0.59); NEUT % 58.9 %; NEUT ABS # 3.04 K/uL (1.4-6.5); PLATELET COUNT 221 K/uL (130-400); RED CELL DISTRIBUTION WIDTH CV 14.6 % (11.5-14.5); RED CELL DISTRIBUTION WIDTH SD 45.7 fL (36.4-46.3); WHITE BLOOD COUNT 5.15 K/uL (4.8-10.8)
[2017-12-03 12:53] LABS: ALBUMIN 3.7 gm/dl (3.4-5.0); ALT/SGPT 26 U/L (12-78); AST/SGOT 20 U/L (15-37); BLOOD UREA NITROGEN 19 mg/dl (7-18); CALCIUM 8.8 mg/dl (8.5-10.1); CARBON DIOXIDE 25 mmol/L (21-32); CREATININE 1.54 mg/dl (0.60-1.40); GLUCOSE 88 mg/dl (70-99); POTASSIUM 4.1 mmol/L (3.5-5.1); SODIUM 140 mmol/L (136-145)
[2017-12-03 12:57] LABS: ALKALINE PHOSPHATASE 65 U/L (45-117); CHOLESTEROL 181 mg/dl (0-200); LDL CHOLESTEROL CALCULATED 65 mg/dl; TOTAL PROTEIN 6.9 gm/dl (6.4-8.2)
== END | disposition home or self-care (01) ==
LOC: C.LABBFT 09:18
PROVIDERS: ATTEND Internal Medicine
DX: I63.9 Cerebral infarction, unspecified (principal); E53.8 Deficiency of other specified B group vitamins

== ENCOUNTER → 2018-01-04 | Outpatient (CLI) | payer OTHER ==
--- NOTE | 2018-01-04 11:31 | DIAGNOSTIC IMAGING REPORT ---
CHEST 2 VIEWS ROUTINE CLINICAL HISTORY: TACHYPNEA ON EXAMINATION, WHEEZING COMPARISON STUDY: 08/10/2017 FINDINGS: There is tracheal deviation to the left. This suggests a large thoracic inlet mass, likely are presenting a thyroid goiter.[ There is an air-containing retrocardiac opacity consistent with a hiatal hernia. The patient is hyperinflated. There is a large left lower lobe lung cyst measuring 17 cm. There is no acute parenchymal consolidation. There are no significant pleural effusions. IMPRESSION: 1. 17 cm left lung cyst 2. Hiatal hernia 3. Emphysema 4. Right-sided thoracic inlet mass consistent with a large thyroid goiter Electronically signed by: Rayshawn Flaherty M.D. 01/04/2018 11:29 AM Dictated Date/Time: 01/04/2018 11:26 AM
== END | disposition home or self-care (01) ==
LOC: C.RAD 10:40
PROVIDERS: ATTEND Nurse Practitioner
DX: R06.82 Tachypnea, not elsewhere classified (principal); R06.2 Wheezing; J98.4 Other disorders of lung; K44.9 Diaphragmatic hernia without obstruction or gangrene; J43.9 Emphysema, unspecified; R22.2 Localized swelling, mass and lump, trunk

== ENCOUNTER → 2018-01-07 | Outpatient (CLI) | payer OTHER ==
--- NOTE | 2018-01-07 11:45 | DIAGNOSTIC IMAGING REPORT ---
(CHEST) THORAX WITHOUT CT DOSE: 336.95 mGycm HISTORY: J98.4 Single cyst of lung TECHNIQUE: Multiaxial CT images of the chest were performed without contrast. A dose lowering technique was utilized adhering to the principles of ALARA. COMPARISON: Chest CT 04/22/2011. FINDINGS: Mild emphysema. No pneumothorax. There is again noted a large anterior bulla within the region of the lingula which measures up to 14 cm in diameter. This is increased in size compared to the 2010 examination. Linear densities along the posterior border of the bulla favor compressive atelectasis. Small subpleural and linear density at the lung bases favor atelectasis. Otherwise, no focal lung consolidations to suggest pneumonia. Small linear scarlike density within the right middle lobe and a few small irregular densities within the anteromedial aspect of the right middle lobe. These also favor areas of scarring. Trace mucoid material within the trachea and left mainstem bronchus. No suspicious lytic or blastic osseous lesions. Increase in size in the multinodular thyroid goiter. This results in left deviation of the trachea. Trace left pleural effusion. Partially visualized 2.7 cm hypodense lesion within the right hepatic lobe. The spleen and adrenal glands are unremarkable. Hypodense lesions within the left kidney are incompletely characterize on this noncontrast study but favor cysts. Stable hypodense lesion within the pancreatic head and stable 2.4 cm hypodense lesion within the right hepatic lobe. The right hepatic lobe lesion likely represents a hemangioma. Normal caliber thoracic aorta. Trace pericardial fluid. IMPRESSION: 1. A 14 cm bulla within the left upper lobe anteriorly. 2. Large hiatus hernia. 3. Mild emphysema. 4. Small subpleural and linear densities at the lung bases favor atelectasis. Otherwise, no focal lung consolidations to suggest pneumonia. 5. Increase in size in the multinodular thyroid goiter. This results in left deviation of the trachea. However, the trachea remains patent. 6. Additional findings as described above. Electronically signed by: Thony Taylor M.D. 01/07/2018 11:43 AM Dictated Date/Time: 01/07/2018 11:20 AM
== END | disposition home or self-care (01) ==
LOC: C.CTS 10:48
PROVIDERS: ATTEND Nurse Practitioner
DX: J98.4 Other disorders of lung (principal); K44.9 Diaphragmatic hernia without obstruction or gangrene; R91.8 Other nonspecific abnormal finding of lung field; E04.2 Nontoxic multinodular goiter

== ENCOUNTER → 2018-04-20 | Outpatient (CLI) | payer OTHER ==
[~2018-04-20] MED LIST changes: +OPTIRAY 320 IV PRN
--- NOTE | 2018-04-20 10:45 | DIAGNOSTIC IMAGING REPORT ---
ABDOMEN COMBO CLINICAL HISTORY: 83 years-old Male presenting with C64.9 Renal cell carcinoma, history of cryoablation. TECHNIQUE: Multidetector CT of the abdomen was performed before and after the administration of intravenous contrast. IV contrast: 93 mL of Optiray 320. A dose lowering technique was used consistent with the principles of ALARA (as low as reasonably achievable). COMPARISON: 09/09/2016. CT DOSE (mGy.cm): The estimated cumulative dose is 739.29 mGycm. FINDINGS: [employer] topogram: Unremarkable. Lung bases: Large bulla/bleb in the lingula. Trace emphysematous changes evident. Bronchial wall thickening. Normal heart size. Coronary artery and mitral annular calcification. No pericardial or pleural effusion. Liver: Normal morphology. Few small hypodensities in the liver are unchanged from prior and likely small hepatic cysts, hamartomas, or hemangiomas. The dominant peripherally enhancing lesion in the right hepatic lobe again demonstrates centripetal partial fill-in of contrast on delayed phase highly suggestive of a benign hemangioma. This is unchanged. Patent hepatic vasculature. Biliary: No intrahepatic or extrahepatic biliary ductal dilatation. Normal gallbladder. Pancreas: Lobular cystic 2.0 cm lesion in the pancreatic head/uncinate (series 5 image 115). This previously measured 1.9 cm. Mild prominence of the pancreatic duct is stable to slightly increased from prior. Additional cystic lesion more anteriorly in the pancreatic head measures 1.2 cm (series 5 image 125), previously 1.0 cm. Spleen: Normal. Adrenal glands: Normal. Kidneys and ureters: Redemonstration of the peripherally calcified lesion arising exophytically from the lower pole of the right kidney. Associated fat necrosis noted. No suspicious nodular enhancement in this region. This is consistent with stable posttreatment changes. Multiple well-defined hypodensities in the kidneys consistent with simple cysts. No nephrolithiasis. No hydronephrosis. Proximal ureters are nondistended. Mild urothelial thickening of the left renal collecting system and proximal left ureter, unchanged. Bowel: Moderate hiatal hernia. No bowel obstruction. Peritoneal cavity: No free fluid or intraperitoneal gas. Lymph nodes: No enlarged lymph nodes in the abdomen. Vasculature: Atherosclerosis of the normal caliber abdominal aorta. IVC patent. Abdominal wall: Normal. Musculoskeletal: Degenerative changes of the spine. IMPRESSION: 1. Slight interval increase in size of the side branch intraductal papillary mucinous neoplasms with stable to slight interval increase in pancreatic ductal dilatation. Increasing size in pancreatic ductal dilatation represents worrisome features. Given this, continued follow-up is warranted versus endoscopic ultrasound FNA. Gastric neurology consultation recommended. 2. Stable appearance of the posttreatment changes of the right renal mass. No evidence of residual or recurrent solid renal neoplasm. No lymphadenopathy or evidence of metastatic disease in the abdomen. 3. Stable urothelial thickening in the left renal collecting system, which likely represents chronic reflux or chronic inflammation related to the presence of prostatomegaly. 4. Hiatal hernia. Electronically signed by: Obed Washington M.D. 04/20/2018 10:43 AM Dictated Date/Time: 04/20/2018 10:30 AM
== END | disposition home or self-care (01) ==
LOC: C.CTS 09:55
PROVIDERS: ATTEND Urology
DX: C64.9 Malignant neoplasm of unspecified kidney, except renal pelvis (principal)

== ENCOUNTER 2021-03-15 12:30 | Inpatient (IN) ==
[2021-03-15] MEDS ORDERED: ACETAMINOPHEN 500 MG TAB PO STA (12:41)
--- NOTE | 2021-03-15 12:45 | Emergency Department Note ---
Impression & Plan Fever, SOB (shortness of breath), High serum lactate ED Provider Note INFORMANT: Patient ED PROVIDER(S): Tacos Portillo MD CHIEF COMPLAINT: Shortness of breath PLAN: Disposition: Admitted Condition: Good Outpatient prescription management: none Referral: None MEDICAL DECISION MAKING: Patient presented to emergency room complaining of shortness of breath. His oxygen saturation was noted to be somewhat tenuous. He was treated with a DuoNeb and Solu-Medrol. His blood work revealed an unremarkable CBC. His chemistry panel revealed some mild dehydration. He had an elevated serum lactate. The patient was febrile. He was treated with oral Tylenol and IV saline hydration. He was given Solu-Medrol and a DuoNeb. Given the fever and elevated lactate with his respiratory symptoms he was treated empirically with cefepime and vancomycin. The patient had a nonischemic ECG. Given the constellation of symptoms and findings further management in the hospital was appropriate. Consultation was made with the [facility] service, . Triage Nursing notes reviewed and agree them. Vital Signs: reviewed and remarkable for no significant abnormalities Differential diagnosis: Reactive airway disease, pneumonia, pneumothorax, COPD, CHF, infections, cardiac ischemia, pulmonary embolism, musculoskeletal, gastrointestinal, as well as other pathologies. Diagnostics interpreted by me: ECG: Twelve-lead ECG reveals sinus rhythm with first-degree block. Left atrial margin. Anteroseptal Q waves. No ST elevation. No PVCs. Cardiac Monitoring: Cardiac monitoring ordered by me: The patient was placed on continuous cardiac monitoring and observed. It revealed a normal sinus rhythm at 80 beats per minute without ectopy or evidence of dysrhythmia. Imaging studies: Chest x-ray reveals emphysematous changes. No obvious focal infiltrate. I refer you to the EMR for further details. HPI: The patient is a 85 year old male who presents to the Emergency Room with complaints of SOB. This started a few weeks ago and is worsening. Pt had COVID in February 2021. He notes fevers for the last two days. Mild anxiety due to the AMES. . The patient has found no relieving factors. No pain. Pt denies LOC, headache, diaphoresis, visual changes, neck pain, chest pain,nausea, vomiting, abdominal pain, back pain, melena, hematochezia, urinary symptoms, numbness, weakness, lymphadenopathy, rash, or other complaints. ROS: See above HPI for pertinent positives & negatives. A total of 10 systems reviewed and were otherwise negative. PAST MEDICAL HISTORY:See Below , COPD, Covid PAST SURGICAL HISTORY:See Below, FAMILY HISTORY:See Below SOCIAL HISTORY:See Below, HOME MEDICATIONS:See Below ALLERGIES:See Below VITALS:See Below PHYSICAL EXAMINATION: GENERAL: Awake, alert, dyspneic-appearing, in no distress HENT: Normocephalic, atraumatic. Oropharynx unremarkable. EYES: Normal conjunctiva. Sclera non-icteric. NECK: Inspection normal. Non-tender. Supple. No nuchal rigidity. FROM. No masses. RESPIRATORY: Few coarse sounds and scattered rales. Increased respiratory effort. CARDIAC: Normal rate. Normal rhythm. No murmurs. No rubs. Extremities warm and well perfused. Pulses equal. No JVD. GI: Soft, non-distended. No tenderness to palpation. No rebound or guarding. No masses. RECTAL: Deferred. MUSCULOSKELETAL: Atraumatic. Chest examination reveals no tenderness. The back is symmetrical on inspection without obvious abnormality. There is no CVA tenderness to palpation. No joint edema. LOWER EXTREMITIES: Calves are equal size bilaterally and non-tender. No edema. No discoloration. NEURO: Normal sensorium. No sensory or motor deficits noted. SKIN: No rash or jaundice noted. Tacos Portillo MD Past Med/Surg History Medical History BPH loc w urin obs/LUTS Elevated PSA Hypertension Ingrown toenail Lesion of nose Surgical History History of cataract surgery History of colonoscopy History of eyelid surgery History of hernia repair History of prostate biopsy History of sinus surgery Family History Brother Prostate cancer Father Prostate cancer Social History Smoking Status: Never smoker Hx Alcohol Use: No Preferred Language: Maltese marital status: Current Living Situation: Spouse current occupational status: retired Feels Safe at Home: Yes Allergies Allergies Allergy/AdvReac Type Severity Reaction Status Date / Time Sulfa (Sulfonamide Allergy Intermediate RASH Verified 03/15/21 15:12 Antibiotics) Home Meds Home Medications Medication Instructions Recorded Confirmed budesonide-formoterol HFA 160 2 puffs INHALATION BID #1 gm 07/09/19 03/15/21 mcg-4.5 mcg/actuation aerosol inhaler chlorthalidone 25 mg tablet 12.5 mg PO QAM tab 07/09/19 03/15/21 clopidogrel 75 mg tablet 75 mg PO QAM tab 07/09/19 03/15/21 pantoprazole 40 mg tablet,delayed 40 mg PO QAM #30 tab 07/09/19 03/15/21 release tamsulosin 0.4 mg capsule 0.4 mg PO QAM #90 cap 07/09/19 03/15/21 albuterol sulfate 1 - 2 puff INHALATION DIRECTED 03/15/21 03/15/21 PRN citalopram 10 mg PO HS 03/15/21 03/15/21 finasteride 5 mg PO HS 03/15/21 03/15/21 montelukast [Singulair] 10 mg PO HS 03/15/21 03/15/21 multivitamin with minerals 1 tab PO QAM 03/15/21 03/15/21 ropinirole 1 mg PO HS 03/15/21 03/15/21 simvastatin 40 mg PO HS 03/15/21 03/15/21 vit C,H-Qg-wjlrd-lutein-zeaxan 1 tab PO BID 03/15/21 03/15/21 [PreserVision AREDS-2] Results & Data (ED) Vital Signs Vital Signs - 24 hr 03/15/21 12:33 03/15/21 12:38 03/15/21 12:40 Temperature Temperature Source Pulse Rate 103 H 103 H 103 H Pulse Rate [Apical] Pulse Rate from SpO2 Sensor 103 H 99 H 103 H Pulse Rhythm Respiratory Rate 29 H 16 31 H Respiratory Effort / Characteristics Respiratory Depth Respiratory Pattern Blood Pressure 168/87 H Blood Pressure [Right Arm] Blood Pressure Mean 114 Blood Pressure Mean [Right Arm] Blood Pressure Position Blood Pressure Position [Right Arm] Pulse Oximetry 94 93 94 Oxygen Delivery Method Oxygen Flow Rate Sepsis Recent Fever Within 48 Hours Sepsis New/Unexplained Change in Mental Status Sepsis Action Taken by Nursing 03/15/21 12:50 03/15/21 13:00 03/15/21 13:02 Temperature 39.0 C H Temperature Source Oral Pulse Rate 99 H 99 H 108 H Pulse Rate [Apical] 107 H Pulse Rate from SpO2 Sensor 99 H 99 H Pulse Rhythm Regular Respiratory Rate 23 24 19 Respiratory Effort / Characteristics Non-Labored Respiratory Depth Normal Respiratory Pattern Regular Blood Pressure 168/87 H Blood Pressure [Right Arm] 168/87 H Blood Pressure Mean 114 Blood Pressure Mean [Right Arm] 114 Blood Pressure Position Lying Blood Pressure Position [Right Arm] Lying Pulse Oximetry 92 90 92 Oxygen Delivery Method Room Air Oxygen Flow Rate Sepsis Recent Fever Within 48 Hours Yes Sepsis New/Unexplained Change in Mental Status No Sepsis Action Taken by Nursing No Action Required 03/15/21 13:10 03/15/21 13:20 03/15/21 13:30 Temperature Temperature Source Pulse Rate 98 H 98 H 98 H Pulse Rate [Apical] Pulse Rate from SpO2 Sensor 98 H 98 H 100 H Pulse Rhythm Respiratory Rate 31 H 11 L 21 Respiratory Effort / Characteristics Respiratory Depth Respiratory Pattern Blood Pressure Blood Pressure [Right Arm] Blood Pressure Mean Blood Pressure Mean [Right Arm] Blood Pressure Position Blood Pressure Position [Right Arm] Pulse Oximetry 90 93 84 L Oxygen Delivery Method Oxygen Flow Rate Sepsis Recent Fever Within 48 Hours Sepsis New/Unexplained Change in Mental Status Sepsis Action Taken by Nursing 03/15/21 13:40 03/15/21 13:50 03/15/21 14:00 Temperature Temperature Source Pulse Rate 104 H 97 H 101 H Pulse Rate [Apical] Pulse Rate from SpO2 Sensor 103 H 97 H 101 H Pulse Rhythm Respiratory Rate 21 15 19 Respiratory Effort / Characteristics Respiratory Depth Respiratory Pattern Blood Pressure Blood Pressure [Right Arm] Blood Pressure Mean Blood Pressure Mean [Right Arm] Blood Pressure Position Blood Pressure Position [Right Arm] Pulse Oximetry 86 L 95 94 Oxygen Delivery Method Oxygen Flow Rate Sepsis Recent Fever Within 48 Hours Sepsis New/Unexplained Change in Mental Status Sepsis Action Taken by Nursing 03/15/21 14:10 03/15/21 14:20 03/15/21 14:26 Temperature Temperature Source Pulse Rate 102 H 100 H Pulse Rate [Apical] 102 H Pulse Rate from SpO2 Sensor 102 H 100 H Pulse Rhythm Respiratory Rate 28 H 26 H 20 Respiratory Effort / Characteristics Respiratory Depth Respiratory Pattern Blood Pressure Blood Pressure [Right Arm] 168/87 H Blood Pressure Mean Blood Pressure Mean [Right Arm] 114 Blood Pressure Position Blood Pressure Position [Right Arm] Pulse Oximetry 93 93 94 Oxygen Delivery Method Nasal Cannula Oxygen Flow Rate 1 Sepsis Recent Fever Within 48 Hours Sepsis New/Unexplained Change in Mental Status Sepsis Action Taken by Nursing 03/15/21 14:30 03/15/21 14:34 03/15/21 14:40 Temperature Temperature Source Pulse Rate 100 H 100 H Pulse Rate [Apical] 100 H Pulse Rate from SpO2 Sensor 100 H 100 H Pulse Rhythm Respiratory Rate 27 H 20 22 Respiratory Effort / Characteristics Non-Labored Spontaneous Respiratory Depth Respiratory Pattern Blood Pressure Blood Pressure [Right Arm] Blood Pressure Mean Blood Pressure Mean [Right Arm] Blood Pressure Position Blood Pressure Position [Right Arm] Pulse Oximetry 93 95 97 Oxygen Delivery Method Nasal Cannula Oxygen Flow Rate 1 Sepsis Recent Fever Within 48 Hours Sepsis New/Unexplained Change in Mental Status Sepsis Action Taken by Nursing 03/15/21 14:50 03/15/21 15:00 03/15/21 15:10 Temperature Temperature Source Pulse Rate 99 H 96 H 91 H Pulse Rate [Apical] Pulse Rate from SpO2 Sensor 99 H 96 H 93 H Pulse Rhythm Respiratory Rate 25 H 23 22 Respiratory Effort / Characteristics Respiratory Depth Respiratory Pattern Blood Pressure Blood Pressure [Right Arm] Blood Pressure Mean Blood Pressure Mean [Right Arm] Blood Pressure Position Blood Pressure Position [Right Arm] Pulse Oximetry 92 94 93 Oxygen Delivery Method Oxygen Flow Rate Sepsis Recent Fever Within 48 Hours Sepsis New/Unexplained Change in Mental Status Sepsis Action Taken by Nursing 03/15/21 15:20 03/15/21 15:30 03/15/21 15:40 Temperature Temperature Source Pulse Rate 93 H 89 87 Pulse Rate [Apical] Pulse Rate from SpO2 Sensor 94 H 89 87 Pulse Rhythm Respiratory Rate 16 13 11 L Respiratory Effort / Characteristics Respiratory Depth Respiratory Pattern Blood Pressure Blood Pressure [Right Arm] Blood Pressure Mean Blood Pressure Mean [Right Arm] Blood Pressure Position Blood Pressure Position [Right Arm] Pulse Oximetry 94 96 96 Oxygen Delivery Method Oxygen Flow Rate Sepsis Recent Fever Within 48 Hours Sepsis New/Unexplained Change in Mental Status Sepsis Action Taken by Nursing 03/15/21 15:50 03/15/21 16:00 03/15/21 16:04 Temperature 38.0 C H Temperature Source Oral Pulse Rate 84 90 Pulse Rate [Apical] 85 85 Pulse Rate from SpO2 Sensor 84 90 Pulse Rhythm Respiratory Rate 10 L 13 20 Respiratory Effort / Characteristics Non-Labored Respiratory Depth Respiratory Pattern Blood Pressure Blood Pressure [Right Arm] 168/87 H Blood Pressure Mean Blood Pressure Mean [Right Arm] 114 Blood Pressure Position Blood Pressure Position [Right Arm] Pulse Oximetry 91 95 95 Oxygen Delivery Method Nasal Cannula Nasal Cannula Oxygen Flow Rate 1 1 Sepsis Recent Fever Within 48 Hours Sepsis New/Unexplained Change in Mental Status Sepsis Action Taken by Nursing 03/15/21 16:10 03/15/21 16:20 Temperature Temperature Source Pulse Rate 87 82 Pulse Rate [Apical] Pulse Rate from SpO2 Sensor 84 82 Pulse Rhythm Respiratory Rate Respiratory Effort / Characteristics Respiratory Depth Respiratory Pattern Blood Pressure Blood Pressure [Right Arm] Blood Pressure Mean Blood Pressure Mean [Right Arm] Blood Pressure Position Blood Pressure Position [Right Arm] Pulse Oximetry 95 95 Oxygen Delivery Method Oxygen Flow Rate Sepsis Recent Fever Within 48 Hours Sepsis New/Unexplained Change in Mental Status Sepsis Action Taken by Nursing Laboratory Data Result diagrams: 03/15/21 13:04 03/15/21 13:04 Lab Results 03/15/21 03/15/21 03/15/21 Range/Units 13:04 13:04 13:04 WBC 5.04 (4.8-10.8) K/uL RBC 4.74 (4.7-6.1) M/uL Hgb 14.4 (14.0-18.0) g/dL Hct 42.0 (42-52) % MCV 88.6 (80-100) fL MCH 30.4 (25-34) pg MCHC 34.3 (32-36) g/dL RDW Std Deviation 47.6 H (36.4-46.3) fL RDW Coeff of Emre 14.5 (11.5-14.5) % Plt Count 84 L (130-400) K/uL MPV 10.8 H (7.4-10.4) fL Immature Gran % (Auto) 0.2 % Neut % (Auto) 91.6 % Lymph % (Auto) 5.0 % [place] % (Auto) 3.2 % Eos % (Auto) 0.0 % Baso % (Auto) 0.0 % Neut # (Auto) 4.62 (1.4-6.5) K/uL Lymph # (Auto) 0.25 L (1.2-3.4) K/uL [place] # (Auto) 0.16 (0.11-0.59) K/uL Eos # (Auto) 0.00 (0-0.5) K/uL Baso # (Auto) 0.00 (0-0.2) K/uL Immature Gran # (Auto) 0.01 (0.00-0.02) K/uL Platelet Estimate Decreased L (Normal) PT 11.0 (9.0-12.0) Seconds INR 1.1 (0.9-1.1) APTT 32.2 H (21.0-31.0) Seconds PTT Ratio 1.2 Sodium 133 L (136-145) mmol/L Potassium 3.3 L (3.5-5.1) mmol/L Chloride 99 (98-107) mmol/L Carbon Dioxide 25 (21-32) mmol/L Anion Gap 9.0 (3-11) BUN 25 H (7-18) mg/dl Creatinine 1.71 H (0.6-1.4) mg/dl Est Cr Clr Drug Dosing 27.9 ml/min Est GFR ( Amer) 40.8 ml/min Est GFR (Non-Af Amer) 35.2 ml/min BUN/Creatinine Ratio 14.6 (10-20) Glucose 119 H (70-99) mg/dl Lactate (0.4-2.0) mmol/L Calcium 8.4 L (8.5-10.1) mg/dl Magnesium 2.0 (1.8-2.4) mg/dl Total Bilirubin 0.9 (0.2-1) mg/dl AST 52 H (15-37) U/L ALT 39 (12-78) U/L Alkaline Phosphatase 72 (45-117) U/L Troponin I 0.020 (0-0.045) ng/ml NT-Pro-B Natriuret Pep 637 (0-1800) pg/ml Total Protein 6.9 (6.4-8.2) gm/dl Albumin 3.2 L (3.4-5.0) gm/dl Globulin 3.7 (2.5-4.0) gm/dl Albumin/Globulin Ratio 0.9 (0.9-2) COVID-19 Eval Order SARS-CoV-2 (PCR) (Negative) 03/15/21 03/15/21 03/15/21 Range/Units 13:10 15:09 15:52 WBC (4.8-10.8) K/uL RBC (4.7-6.1) M/uL Hgb (14.0-18.0) g/dL Hct (42-52) % MCV (80-100) fL MCH (25-34) pg MCHC (32-36) g/dL RDW Std Deviation (36.4-46.3) fL RDW Coeff of Emre (11.5-14.5) % Plt Count (130-400) K/uL MPV (7.4-10.4) fL Immature Gran % (Auto) % Neut % (Auto) % Lymph % (Auto) % [place] % (Auto) % Eos % (Auto) % Baso % (Auto) % Neut # (Auto) (1.4-6.5) K/uL Lymph # (Auto) (1.2-3.4) K/uL [place] # (Auto) (0.11-0.59) K/uL Eos # (Auto) (0-0.5) K/uL Baso # (Auto) (0-0.2) K/uL Immature Gran # (Auto) (0.00-0.02) K/uL Platelet Estimate (Normal) PT (9.0-12.0) Seconds INR (0.9-1.1) APTT (21.0-31.0) Seconds PTT Ratio Sodium (136-145) mmol/L Potassium (3.5-5.1) mmol/L Chloride (98-107) mmol/L Carbon Dioxide (21-32) mmol/L Anion Gap (3-11) BUN (7-18) mg/dl Creatinine (0.6-1.4) mg/dl Est Cr Clr Drug Dosing ml/min Est GFR ( Amer) ml/min Est GFR (Non-Af Amer) ml/min BUN/Creatinine Ratio (10-20) Glucose (70-99) mg/dl Lactate 2.5 H* 1.2 (0.4-2.0) mmol/L Calcium (8.5-10.1) mg/dl Magnesium (1.8-2.4) mg/dl Total Bilirubin (0.2-1) mg/dl AST (15-37) U/L ALT (12-78) U/L Alkaline Phosphatase (45-117) U/L Troponin I (0-0.045) ng/ml NT-Pro-B Natriuret Pep (0-1800) pg/ml Total Protein (6.4-8.2) gm/dl Albumin (3.4-5.0) gm/dl Globulin (2.5-4.0) gm/dl Albumin/Globulin Ratio (0.9-2) COVID-19 Eval Order Covid19 at [facility] SARS-CoV-2 (PCR) (Negative) 03/15/21 Range/Units 15:52 WBC (4.8-10.8) K/uL RBC (4.7-6.1) M/uL Hgb (14.0-18.0) g/dL Hct (42-52) % MCV (80-100) fL MCH (25-34) pg MCHC (32-36) g/dL RDW Std Deviation (36.4-46.3) fL RDW Coeff of Emre (11.5-14.5) % Plt Count (130-400) K/uL MPV (7.4-10.4) fL Immature Gran % (Auto) % Neut % (Auto) % Lymph % (Auto) % [place] % (Auto) % Eos % (Auto) % Baso % (Auto) % Neut # (Auto) (1.4-6.5) K/uL Lymph # (Auto) (1.2-3.4) K/uL [place] # (Auto) (0.11-0.59) K/uL Eos # (Auto) (0-0.5) K/uL Baso # (Auto) (0-0.2) K/uL Immature Gran # (Auto) (0.00-0.02) K/uL Platelet Estimate (Normal) PT (9.0-12.0) Seconds INR (0.9-1.1) APTT (21.0-31.0) Seconds PTT Ratio Sodium (136-145) mmol/L Potassium (3.5-5.1) mmol/L Chloride (98-107) mmol/L Carbon Dioxide (21-32) mmol/L Anion Gap (3-11) BUN (7-18) mg/dl Creatinine (0.6-1.4) mg/dl Est Cr Clr Drug Dosing ml/min Est GFR ( Amer) ml/min Est GFR (Non-Af Amer) ml/min BUN/Creatinine Ratio (10-20) Glucose (70-99) mg/dl Lactate (0.4-2.0) mmol/L Calcium (8.5-10.1) mg/dl Magnesium (1.8-2.4) mg/dl Total Bilirubin (0.2-1) mg/dl AST (15-37) U/L ALT (12-78) U/L Alkaline Phosphatase (45-117) U/L Troponin I (0-0.045) ng/ml NT-Pro-B Natriuret Pep (0-1800) pg/ml Total Protein (6.4-8.2) gm/dl Albumin (3.4-5.0) gm/dl Globulin (2.5-4.0) gm/dl Albumin/Globulin Ratio (0.9-2) COVID-19 Eval Order SARS-CoV-2 (PCR) POSITIVE A* (Negative) Administered Medications Sodium Chloride (Nss 1000ml) 1,000 mls @ 150 mls/hr IV .[id number] TOBIN Stop: 04/14/21 12:44 Last Infusion: 03/15/21 15:02 Dose: 0 mls/hr Documented by: [id number] Admin: 03/15/21 13:35 Dose: 150 mls/hr Documented by: [id number] Miscellaneous Information (Vancomycin Consult Active) 1 ea N/A UD PRN PRN Reason: Consult Stop: 04/14/21 14:18 Last Admin: 03/15/21 15:03 Dose: 1 ea Documented by: [id number] Discontinued Medications Acetaminophen (Acetaminophen 500 Mg Tab) 1,000 mg PO NOW STA Stop: 03/15/21 12:42 Last Admin: 03/15/21 13:35 Dose: 1,000 mg Documented by: [id number] Albuterol (Albut/Ipratrop 3mg/0.5mg Neb 3 Ml Vial) 3 ml NEB NOW STA Stop: 03/15/21 14:23 Last Admin: 03/15/21 14:34 Dose: 3 ml Documented by: [id number] Sodium Chloride (Nss 1000ml) 1,000 mls @ 999 mls/hr IV .Q1H1M ONE Stop: 03/15/21 15:19 Last Infusion: 03/15/21 15:57 Dose: 0 mls/hr Documented by: [id number] Admin: 03/15/21 15:02 Dose: 999 mls/hr Documented by: [id number] Cefepime HCl (Maxipime) 2,000 mg in 20 mls @ 5 mls/min IV NOW STA; Protocol Stop: 03/15/21 14:22 Last Admin: 03/15/21 14:30 Dose: 5 mls/min Documented by: [id number] Vancomycin HCl 1,250 mg/ (Sodium Chloride) 525 mls @ 200 mls/hr IV NOW ONE Stop: 03/15/21 16:56 Last Infusion: 03/15/21 17:40 Dose: 0 mls/hr Documented by: [id number] Admin: 03/15/21 15:02 Dose: 200 mls/hr Documented by: [id number] Methylprednisolone (Methylprednisolone 125 Mg/2 Ml Vial) 125 mg IV NOW STA Stop: 03/15/21 14:23 Last Admin: 03/15/21 14:30 Dose: 125 mg Documented by: [id number] Imaging Data Radiologist's Impression: Chest X-Ray 03/15/21 12:41 XR chest 1V portable CLINICAL HISTORY: SEPSIS COMPARISON STUDY: 02/10/2021 FINDINGS: There is a right-sided thoracic inlet mass with deviation of the trachea to the left of midline. This is consistent with a large thyroid goiter. The heart is enlarged with aortic tortuosity/ectasia. There is a large hiatal hernia. There is a left lower lung zone lucency consistent with an emphysematous bulla. There is bibasilar atelectasis/scarring.[There are no significant pleural effusions IMPRESSION: 1. Right thoracic inlet mass consistent with a large thyroid goiter 2. Large hiatal hernia 3. Emphysema with a suspected left lower lung zone bulla 4. Basilar atelectasis/scarring ACT 112: Negative or not required by law. Electronically signed by: Rayshawn Flaherty M.D. 03/15/2021 1:46 PM Discharge Plan Visit Data Chief Complaint: Shortness of Breath/Dyspnea Stated Complaint: SOB ED Provider: Tacos Portillo Discharge Problem: Fever, SOB (shortness of breath), High serum lactate Discharge Instructions Interventions: ED Discharge Assessment Last Done: 03/15/21 18:12
[2021-03-15] MEDS: SODIUM CHLORIDE 0.9% 1000ML 1,000 ML IV SCH ×2 (13:35→21:05)
[2021-03-15 13:46] LABS: INR 1.1 (0.9-1.1); Partial Thromboplastin Ratio 1.2; Partial Thromboplastin Time 32.2 Seconds (21.0-31.0)
[2021-03-15 13:47] LABS: Albumin Level 3.2 gm/dl (3.4-5.0); BUN Creatinine Ratio 14.6 (10-20); Calcium 8.4 mg/dl (8.5-10.1); Creatinine Clr Calc Pharmacy 27.9 ml/min; Est GFR (African American) 40.8 ml/min; Est GFR (Non-African American) 35.2 ml/min; Potassium 3.3 mmol/L (3.5-5.1)
--- NOTE | 2021-03-15 13:47 | XRay Report ---
XR chest 1V portable CLINICAL HISTORY: SEPSIS COMPARISON STUDY: 02/10/2021 FINDINGS: There is a right-sided thoracic inlet mass with deviation of the trachea to the left of mid line. This is consistent with a large thyroid goiter. The heart is enlarged with aortic tortuosity/ec manjinder. There is a large hiatal hernia. There is a left lower lung zone lucency consistent with an emp hysematous bulla. There is bibasilar atelectasis/scarring.[There are no significant pleural effusions IMPRESSION: 1. Right thoracic inlet mass consistent with a large thyroid goiter 2. Large hiatal hernia 3. Emphysema with a suspected left lower lung zone bulla 4. Basilar atelectasis/scarring ACT 112: Negative or not required by law. Electronically signed by: Rayshawn Flaherty M.D. 03/15/2021 1:46 PM
[2021-03-15 13:48] LABS: Hemoglobin 14.4 g/dL (14.0-18.0); Mean Corpuscular Hemoglobin 30.4 pg (25-34); Mean Corpuscular Hgb Conc 34.3 g/dL (32-36); Mean Corpuscular Volume 88.6 fL (80-100); Mean Platelet Volume 10.8 fL (7.4-10.4); Platelet Count 84 K/uL (130-400); RDW Coefficient of Variation 14.5 % (11.5-14.5); RDW Standard Deviation 47.6 fL (36.4-46.3); Red Blood Count 4.74 M/uL (4.7-6.1); White Blood Count 5.04 K/uL (4.8-10.8)
[2021-03-15 13:49] LABS: Immature Granulocytes # (auto) 0.01 K/uL (0.00-0.02); Immature Granulocytes % (auto) 0.2 %; Lymphocytes # (auto) 0.25 K/uL (1.2-3.4); Monocytes # (auto) 0.16 K/uL (0.11-0.59); Monocytes % (auto) 3.2 %; Neutrophils # (auto) 4.62 K/uL (1.4-6.5); Neutrophils % (auto) 91.6 %; Platelet Estimate Decreased (Normal)
[2021-03-15 13:52] LABS: Albumin Globulin Ratio 0.9 (0.9-2); Bilirubin,Total 0.9 mg/dl (0.2-1); Globulin 3.7 gm/dl (2.5-4.0); Total Protein 6.9 gm/dl (6.4-8.2); Troponin I 0.02 ng/ml (0-0.045)
[2021-03-15] MEDS ORDERED: VANCOMYCIN HCL 1,250 MG in SODIUM CHLORIDE 0.9% 500 ML IV ONE (14:19)
[2021-03-15] MEDS ORDERED: VANCOMYCIN CONSULT ACTIVE PRN (14:19)
[2021-03-15] MEDS ORDERED: SODIUM CHLORIDE 0.9% 1000ML 1,000 ML IV ONE (14:19)
[2021-03-15] MEDS ORDERED: CEFEPIME 2,000 MG/20 ML VIAL IV STA (14:19)
[2021-03-15] MEDS ORDERED: methylPREDNISolone 125 MG/2 ML VIAL IV STA (14:22)
[2021-03-15] MEDS ORDERED: ALBUT/IPRATROP 3MG/0.5MG NEB 3 ML VIAL NEB STA (14:22)
[2021-03-15 18:40] LABS: Appearance Urine Cloudy (Clear); Bacteria Urine Automated Negative (Negative); Bilirubin Urine Negative (Negative); Blood Urine 2+ (Negative); Color Urine Dark Yellow; Glucose Urine UA Negative (Negative); Ketones Urine Negative (Negative); Leukocyte Esterase Urine Negative (Negative); Nitrite Urine Negative (Negative); Protein Urine 1+ (Negative); Specific Gravity Urine 1.016 (1.000-1.030); Urobilinogen Urine Negative (Negative)
[2021-03-15] MEDS ORDERED: ACETAMINOPHEN 325 MG TAB PO PRN (19:39)
[2021-03-15] MEDS ORDERED: ALBUTEROL HFA 8 GM INHALER INH PRN (19:39)
[2021-03-15] MEDS ORDERED: ONDANSETRON INJ 2 MG/ML 2 ML VIAL IV PRN (19:39)
--- NOTE | 2021-03-15 20:14 | Pharmacy Report ---
Pharmacy Abx Dose Short Note - Date of Service March 15, 2021 - Assessment & Plan Assessment 85 year old M receiving IV Vancomycin, Ceftriaxone (not a consult), and Azithromycin (not a consult) for treatment of pneumonia. He is also +COVID Day # 1 of antimicrobial therapy. * Renal function appears to be at baseline; sCr = 1.71 mg/dL with estimated CrCl ~28 mL/min. Estimated pharmacokinetic parameters: * Ke ~0.028/hr, T1/2 ~24.7 hrs * Patient received Vancomycin 1250mg (~19mg/kg) IV x 1 as a loading dose in the ED Plan Vancomycin * Initiate Vancomycin 1000mg (~15mg/kg) IV q24 * Goal trough level for pneumonia : 15 to 20 mcg/mL * Trough level ordered for: 03/17/21 @ 1130 (this is an early level not reflective of steady state, but would like to assess dosing regimen earlier due to renal function and unpredictable pharmacokinetics in elderly) * Ordered MRSA nasal swab to assist with potential de-escalation Pharmacy will continue to follow and will adjust dose/frequency as necessary. Thank you.
[2021-03-15] MEDS ORDERED: NON-FORMULARY MEDICATION (Vit C,E-Zn-Coppr-Lutein-Zeaxan [Preservision Areds-2] 250-90-40- PO SCH (21:00)
[2021-03-15] MEDS: AZITHROMYCIN 500 MG in DEXTROSE 5% 250 ML IV SCH (21:04)
[2021-03-15] MEDS: cefTRIAXone SODIUM 1,000 MG in DEXTROSE 5% 50 ML IV SCH (21:04)
[2021-03-15] MEDS: CITALOPRAM 20 MG TAB PO SCH (21:05)
[2021-03-15] MEDS: MONTELUKAST SODIUM 10 MG TABLET PO SCH (21:06)
[2021-03-15] MEDS: SIMVASTATIN 40 MG TAB PO SCH (21:07)
[2021-03-15] MEDS: rOPINIRole HCL 1 MG TABLET PO SCH (21:07)
[2021-03-15] MEDS: FINASTERIDE 5 MG TAB PO SCH (21:47)
[2021-03-15] MEDS ORDERED: HEPARIN SOD 5,000 UNIT/0.5 ML VIAL SQ SCH (22:00)
[2021-03-16] MEDS: SODIUM CHLORIDE 0.9% 1000ML 1,000 ML IV SCH ×2 (04:03→10:04)
[2021-03-16 05:37] LABS: Hematocrit (blood only) 37.1 % (42-52); Hemoglobin 12.7 g/dL (14.0-18.0); Mean Corpuscular Hemoglobin 29.7 pg (25-34); Mean Corpuscular Hgb Conc 34.2 g/dL (32-36); Mean Corpuscular Volume 86.7 fL (80-100); RDW Coefficient of Variation 14.4 % (11.5-14.5); RDW Standard Deviation 46.1 fL (36.4-46.3); Red Blood Count 4.28 M/uL (4.7-6.1); White Blood Count 2.98 K/uL (4.8-10.8)
[2021-03-16 05:39] LABS: Platelet Count 71 K/uL (130-400)
[2021-03-16 06:08] LABS: BUN Creatinine Ratio 19.4 (10-20); Calcium 7.6 mg/dl (8.5-10.1); Creatinine Clr Calc Pharmacy 32.2 ml/min; Est GFR (African American) 47.4 ml/min; Est GFR (Non-African American) 40.9 ml/min; Potassium 2.9 mmol/L (3.5-5.1)
[2021-03-16] MEDS ORDERED: POTASSIUM CHLORIDE CRTAB 20 MEQ TABCR PO STA (06:16)
[2021-03-16 06:31] LABS: Basophils # (auto) 0.01 K/uL (0-0.2); Basophils % (auto) 0.3 %; Echinocytes 2+; Giant Platelets 3+; Immature Granulocytes # (auto) 0.01 K/uL (0.00-0.02); Immature Granulocytes % (auto) 0.3 %; Lymphocytes # (auto) 0.44 K/uL (1.2-3.4); Lymphocytes % (auto) 14.8 %; Monocytes # (auto) 0.19 K/uL (0.11-0.59); Monocytes % (auto) 6.4 %; Neutrophils # (auto) 2.33 K/uL (1.4-6.5); Neutrophils % (auto) 78.2 %
[2021-03-16] MEDS: CHLORTHALIDONE 25 MG TAB PO SCH (07:08)
[2021-03-16] MEDS: CLOPIDOGREL BISULFATE 75 MG TAB PO SCH (07:09)
[2021-03-16] MEDS: TAMSULOSIN HCL 0.4 MG CAP PO SCH (07:09)
[2021-03-16] MEDS: CEROVITE ADV FORMULA TAB PO SCH (07:09)
[2021-03-16] MEDS: FLUTICASONE/VILANTEROL 200/25MCG 14 PUFFS/INHALER INH SCH (07:10)
[2021-03-16] MEDS: PANTOprazole 40 MG TAB PO SCH (07:10)
[2021-03-16] MEDS: POTASSIUM CHLORIDE / WTR 10 MEQ/100 ML PLCT IV SCH ×4 (07:10→10:41)
--- NOTE | 2021-03-16 09:10 | CT Scan Report ---
CT OF THE CHEST WITHOUT IV CONTRAST CLINICAL HISTORY: Shortness of breath. COMPARISON STUDY: Chest CT January 07, 2018. Chest radiograph March 15, 2021. CT DOSE: 365.66 mGy.cm TECHNIQUE: Axial images of the chest were obtained without IV contrast. Images were reviewed in the axial, sagittal, and coronal planes. IV contrast was not administered for this examination. Automat ed exposure control was utilized for the study. A dose lowering technique was utilized adhering to t he principles of ALARA. FINDINGS: A large multinodular thyroid goiter is again noted. This was shown on CT of January 07, 2018. This results in leftward deviation of the trachea just below the level of the thoracic inlet. The he art is mildly enlarged. There is no pericardial effusion. There are trace bilateral pleural effusions . No pneumothorax is noted. A large bulla within the lingula is again noted. This was shown on CT of January 07, 2018. Adjacent airspace opacity reflects atelectasis. Bilateral lower lobe opacities favor a telectasis or scarring. There is minimal scarring within the right middle lobe. Note is made of a 6 m m irregular nodule within the right middle lobe on image 219. This is indeterminate. A large hiatal h ernia with intrathoracic stomach is noted. A few prominent subcarinal lymph nodes are noted. Emphysem a is noted. IMPRESSION: 1. Emphysema. Large bulla within the lingula. 2. No consolidation to suggest pneumonia. 3. Large hiatal hernia with intrathoracic stomach. 4. Trace bilateral pleural effusions. 5. 6 mm irregular right middle lobe nodule. This is indeterminate. A follow-up chest CT in 6 months i s recommended. ACT 112: Negative or not required by law. Electronically signed by: Nabeel Killian M.D. 03/16/2021 9:08 AM
--- NOTE | 2021-03-16 09:19 | Electrocardiogram Report ---
Test Reason : Blood Pressure : / mmHG Vent. Rate : 100 BPM Atrial Rate : 100 BPM P-R Int : 234 ms QRS Dur : 090 ms QT Int : 332 ms P-R-T Axes : 063 029 045 degrees QTc Int : 428 ms Poor data quality, interpretation may be adversely affected Sinus rhythm with 1st degree A-V block Abnormal ECG When compared with ECG of 26-JUL-2017 19:58, MI interval has increased T wave amplitude has decreased in Anterior leads Criteria for LVH no longer poresent Confirmed by Oneil Chang ([id number]) on 03/16/2021 9:19:10 AM Referred By: REFERRED SELF Confirmed By:Oneil Chang
[2021-03-16] MEDS ORDERED: VANCOMYCIN HCL 1,000 MG in SODIUM CHLORIDE 0.9% 250 ML IV SCH (12:00)
[2021-03-16] MEDS ORDERED: ALBUT/IPRATROP 3MG/0.5MG NEB 3 ML VIAL NEB STA (14:06)
[2021-03-16] MEDS ORDERED: ALBUT/IPRATROP 3MG/0.5MG NEB 3 ML VIAL NEB PRN (14:25)
[2021-03-16] MEDS: ALBUT/IPRATROP 3MG/0.5MG NEB 3 ML VIAL NEB SCH ×3 (14:45→22:16)
[2021-03-16] MEDS: methylPREDNISolone 40 MG in SYRINGE 0 ML IV SCH ×2 (14:53→20:25)
--- NOTE | 2021-03-16 16:08 | XRay Report ---
XR chest 1V portable CLINICAL HISTORY: Respiratory distress COMPARISON STUDY: Chest radiograph and chest CT March 15, 2021. FINDINGS: [Deviation of the trachea is noted with mediastinal widening. This is due to a thyroid goit er, as shown on CT. A large bulla within the lingula is noted. Linear left basilar opacity reflects a telectasis or scarring. A large hiatal hernia with intrathoracic stomach is noted. Cardiomegaly is un changed. There is no pneumothorax or pleural effusion. Subtle interstitial thickening within the righ t lung is noted. This is unchanged. IMPRESSION: 1. No significant change in appearance of the chest. Large bulla within the left upper lobe, better d epicted on chest CT. 2. No consolidation identified. ACT 112: Negative or not required by law. Electronically signed by: Nabeel Killian M.D. 03/16/2021 4:07 PM
[2021-03-16 16:27] LABS: iSTAT Allen Test Pass; iSTAT Arterial Blood Gas HCO3 18 meg/L (19-24); iSTAT Arterial Blood Gas pCO2 29 mmHg (35-46); iSTAT Arterial Blood Gas pO2 74 mmHg (80-95); iSTAT Carbon Dioxide 19 mmol/L (24-31); iSTAT Site R Radial
--- NOTE | 2021-03-16 17:27 | Critical Care Consultation ---
Date of Consultation March 16, 2021 Assessment & Plan (1) Acute exacerbation of chronic obstructive pulmonary disease (COPD): Reason Critically Ill: 85-year-old male with acute exacerbation of COPD PLAN: Resp: COPD exacerbation Acute hypoxic respiratory failure -Wean oxygen as tolerated -Continue nebs and aggressive pulmonary toilet -Continue steroids CV: Tachycardia -Likely compensatory Fluids/Renal: Hypokalemia Chronic kidney disease appears his baseline creatinine is around 1.5 ID: Ceftriaxone Zithromax Recent COVID-19 test positive despite prior history being outside infective window -Could represent variant Febrile illness -Continue airborne precautions GI/Nutrition: Heart healthy diet Heme: Leukopenia Thrombocytopenia DVT prophylaxis: Heparin 5000 twice daily Endocrine: ICU hyperglycemia protocol Vascular access: Peripheral IVs Code Status: Full code Disposition: ICU (2) Febrile illness: (3) Acute hypoxemic respiratory failure: Supervising Physician Co-Signing Physician Notes I have personally spent 35 minutes of critical care time in the direct management of this patient. This is a life/limb threatening event. This includ es time spent evaluating patient, direct bedside care, chart review, placing orders, interpretation of diagnostic studies, discussion with consultants, patient, and/or family members regarding treatment decisions, as well as other required patient management activities. This time is exclusive of all separately billable procedures, and teaching time and separate from and in addition to any other critical care service time. History of Present Illness Reason for Consultation: Acute hypoxic respiratory failure Requesting Physician: Lai Rosado Attending Physician: Lai Rosado MD History of Present Illness Patient is an 85-year-old male with significant past medical history of COPD significant bullae and prior COVID-19 infection who presents with increasing shortness of breath and respiratory distress. He had worsening shortness of breath on the floor despite nebs and steroids was transferred for the ICU for further evaluation and management. There is also concern that if positive pressure would cause the significant large bullae to rupture he would require emergent chest tube placement. Allergies Allergy/AdvReac Type Severity Reaction Status Date / Time Sulfa (Sulfonamide Allergy Intermediate RASH Verified 03/15/21 15:12 Antibiotics) Home Medications Medication Instructions Recorded Confirmed Type budesonide-formoterol HFA 160 2 puffs INHALATION BID #1 gm 07/09/19 03/15/21 History mcg-4.5 mcg/actuation aerosol inhaler chlorthalidone 25 mg tablet 12.5 mg PO QAM tab 07/09/19 03/15/21 History clopidogrel 75 mg tablet 75 mg PO QAM tab 07/09/19 03/15/21 History pantoprazole 40 mg tablet,delayed 40 mg PO QAM #30 tab 07/09/19 03/15/21 History release tamsulosin 0.4 mg capsule 0.4 mg PO QAM #90 cap 07/09/19 03/15/21 History albuterol sulfate 1 - 2 puff INHALATION DIRECTED 03/15/21 03/15/21 History PRN citalopram 10 mg PO HS 03/15/21 03/15/21 History finasteride 5 mg PO HS 03/15/21 03/15/21 History montelukast [Singulair] 10 mg PO HS 03/15/21 03/15/21 History multivitamin with minerals 1 tab PO QAM 03/15/21 03/15/21 History ropinirole 1 mg PO HS 03/15/21 03/15/21 History simvastatin 40 mg PO HS 03/15/21 03/15/21 History vit C,Q-Wp-vgimb-lutein-zeaxan 1 tab PO BID 03/15/21 03/15/21 History [PreserVision AREDS-2] Patient History Medical History BPH loc w urin obs/LUTS Elevated PSA Hypertension Ingrown toenail Lesion of nose Surgical History History of cataract surgery History of colonoscopy History of eyelid surgery History of hernia repair History of prostate biopsy History of sinus surgery Family History Brother Prostate cancer Father Prostate cancer Social History Smoking Status: Never smoker Hx Alcohol Use: No Hx Substance Use: No Preferred Language: [place] Communication Ability: Effective Communication Ability Comment: [place] [employer] Supervisor Required: No Beliefs That Will Affect Care: None marital status: Current Living Situation: Spouse current occupational status: retired Other Information That Helps Us Care for You: No Feels Safe at Home: Yes Safety Concerns: Feels Safe At This Time Assistive Devices: Denture - Upper, Denture - Lower, Glasses and Hearing Aid - Bilateral Physical Exam Physical Exam: General: Alert. nontoxic. Skin: Warm, dry, Head: Atraumatic Ears, nose, mouth and throat: airway patent Cardiovascular: Normal peripheral perfusion Respiratory: no respiratory distress, on 3 L nasal cannula Gastrointestinal: Non distended Musculoskeletal: No deformity Results & Data Results & Data ([facility]) Vital Signs (Past 12 Hours) Vital Signs Temp Pulse Pulse Resp BP BP Pulse Ox 03/16/21 16:14 107 H 36 H 159/89 H 93 03/16/21 15:14 38.0 C H 118 H 35 H 181/98 H 91 03/16/21 14:16 117 H 30 H 96 03/16/21 13:36 94 03/16/21 11:33 36.6 C 84 16 156/81 H 95 03/16/21 09:08 163/79 H 03/16/21 08:00 72 03/16/21 07:45 36.9 C 81 18 174/90 H 93 03/16/21 06:34 36.5 C 76 16 155/75 H 94 Laboratory Results 03/16/21 03/16/21 03/16/21 Range/Units 16:01 05:17 05:17 WBC 2.98 L (4.8-10.8) K/uL RBC 4.28 L (4.7-6.1) M/uL Hgb 12.7 L (14.0-18.0) g/dL Hct 37.1 L (42-52) % MCV 86.7 (80-100) fL MCH 29.7 (25-34) pg MCHC 34.2 (32-36) g/dL RDW Std Deviation 46.1 (36.4-46.3) fL RDW Coeff of Emre 14.4 (11.5-14.5) % Plt Count 71 L (130-400) K/uL MPV 11.0 H (7.4-10.4) fL Immature Gran % (Auto) 0.3 % Neut % (Auto) 78.2 % Lymph % (Auto) 14.8 % Titus % (Auto) 6.4 % Eos % (Auto) 0.0 % Baso % (Auto) 0.3 % Neut # (Auto) 2.33 (1.4-6.5) K/uL Lymph # (Auto) 0.44 L (1.2-3.4) K/uL Titus # (Auto) 0.19 (0.11-0.59) K/uL Eos # (Auto) 0.00 (0-0.5) K/uL Baso # (Auto) 0.01 (0-0.2) K/uL Immature Gran # (Auto) 0.01 (0.00-0.02) K/uL Giant Platelets 3+ Echinocytes 2+ Sample Site R Radial POC pH 7.40 (7.35-7.45) POC pCO2 29 L (35-46) mmHg POC pO2 74 L (80-95) mmHg POC HCO3 18 L (19-24) kameron/L POC Total CO2 19 L (24-31) mmol/L POC Base Excess -7.0 (-9-1.8) kameron/L POC ABG O2 Sat 95.0 (90-95) % Campos Test Pass O2 Delivery Device Cannula Sodium 137 (136-145) mmol/L Potassium 2.9 L (3.5-5.1) mmol/L Chloride 107 (98-107) mmol/L Carbon Dioxide 22 (21-32) mmol/L Anion Gap 8.0 (3-11) BUN 29 H (7-18) mg/dl Creatinine 1.51 H (0.6-1.4) mg/dl Est Cr Clr Drug Dosing 32.2 ml/min Est GFR ( Amer) 47.4 ml/min Est GFR (Non-Af Amer) 40.9 ml/min BUN/Creatinine Ratio 19.4 (10-20) Glucose 153 H (70-99) mg/dl Calcium 7.6 L (8.5-10.1) mg/dl Magnesium 2.0 (1.8-2.4) mg/dl Urine Color Urine Appearance (Clear) Urine pH (4.5-7.5) Ur Specific [place] (1.000-1.030) Urine Protein (Negative) Urine Glucose (UA) (Negative) Urine Ketones (Negative) Urine Blood (Negative) Urine Nitrite (Negative) Urine Bilirubin (Negative) Urine Urobilinogen (Negative) Ur Leukocyte Esterase (Negative) Urine WBC (Auto) (0-5) /hpf Urine RBC (Auto) (0-4) /hpf U Hyaline Cast (Auto) (0-5) /lpf U Epithel Cells (Auto) (0-5) /lpf Urine Bacteria (Auto) (Negative) Urine Yeast Nasal Screen MRSA (PCR) (Negative) 03/15/21 03/15/21 Range/Units 21:15 17:48 WBC (4.8-10.8) K/uL RBC (4.7-6.1) M/uL Hgb (14.0-18.0) g/dL Hct (42-52) % MCV (80-100) fL MCH (25-34) pg MCHC (32-36) g/dL RDW Std Deviation (36.4-46.3) fL RDW Coeff of Emre (11.5-14.5) % Plt Count (130-400) K/uL MPV (7.4-10.4) fL Immature Gran % (Auto) % Neut % (Auto) % Lymph % (Auto) % Titus % (Auto) % Eos % (Auto) % Baso % (Auto) % Neut # (Auto) (1.4-6.5) K/uL Lymph # (Auto) (1.2-3.4) K/uL Titus # (Auto) (0.11-0.59) K/uL Eos # (Auto) (0-0.5) K/uL Baso # (Auto) (0-0.2) K/uL Immature Gran # (Auto) (0.00-0.02) K/uL Giant Platelets Echinocytes Sample Site POC pH (7.35-7.45) POC pCO2 (35-46) mmHg POC pO2 (80-95) mmHg POC HCO3 (19-24) kameron/L POC Total CO2 (24-31) mmol/L POC Base Excess (-9-1.8) akmeron/L POC ABG O2 Sat (90-95) % Campos Test O2 Delivery Device Sodium (136-145) mmol/L Potassium (3.5-5.1) mmol/L Chloride (98-107) mmol/L Carbon Dioxide (21-32) mmol/L Anion Gap (3-11) BUN (7-18) mg/dl Creatinine (0.6-1.4) mg/dl Est Cr Clr Drug Dosing ml/min Est GFR ( Amer) ml/min Est GFR (Non-Af Amer) ml/min BUN/Creatinine Ratio (10-20) Glucose (70-99) mg/dl Calcium (8.5-10.1) mg/dl Magnesium (1.8-2.4) mg/dl Urine Color Dark Yellow Urine Appearance Cloudy A (Clear) Urine pH 5.0 (4.5-7.5) Ur Specific [place] 1.016 (1.000-1.030) Urine Protein 1+ H (Negative) Urine Glucose (UA) Negative (Negative) Urine Ketones Negative (Negative) Urine Blood 2+ H (Negative) Urine Nitrite Negative (Negative) Urine Bilirubin Negative (Negative) Urine Urobilinogen Negative (Negative) Ur Leukocyte Esterase Negative (Negative) Urine WBC (Auto) 1-5 (0-5) /hpf Urine RBC (Auto) 5-10 H (0-4) /hpf U Hyaline Cast (Auto) 5-10 H (0-5) /lpf U Epithel Cells (Auto) 10-20 H (0-5) /lpf Urine Bacteria (Auto) Negative (Negative) Urine Yeast Not Reportable Nasal Screen MRSA (PCR) Positive A (Negative) Coding Level of Care Code Critical Care 1st 30-74 mins Diagnoses Acute exacerbation of chronic obstructive pulmonary disease (COPD) J44.1 Febrile illness R50.9 Acute hypoxemic respiratory failure J96.01
[2021-03-16] MEDS: cefTRIAXone SODIUM 1,000 MG in DEXTROSE 5% 50 ML IV SCH (20:19)
[2021-03-16] MEDS: AZITHROMYCIN 500 MG in DEXTROSE 5% 250 ML IV SCH (20:21)
[2021-03-16] MEDS: FINASTERIDE 5 MG TAB PO SCH (20:23)
[2021-03-16] MEDS: CITALOPRAM 20 MG TAB PO SCH (20:23)
[2021-03-16] MEDS: HEPARIN SOD 5,000 UNIT/0.5 ML VIAL SQ SCH (20:24)
[2021-03-16] MEDS: MONTELUKAST SODIUM 10 MG TABLET PO SCH (20:25)
[2021-03-16] MEDS: rOPINIRole HCL 1 MG TABLET PO SCH (20:25)
[2021-03-16] MEDS: SIMVASTATIN 40 MG TAB PO SCH (20:25)
--- NOTE | 2021-03-16 20:27 | Hospitalist Progress Note ---
Date of Service March 16, 2021 Assessment & Plan (1) Acute exacerbation of chronic obstructive pulmonary disease (COPD): Worsening COPD today. - Moved to ICU give the large bullae (chronic). My concern was that with any positive pressure, it could rupture and cause pneumothorax. - However, doing better now with DuoNebs and steroids - Will monitor in ICU overnight and likely transfer back out tomorrow. (2) History of CVA (cerebrovascular accident): - Continue Plavix (3) Hypertension: BP presently 125/70. - Continue chlorthalidone (4) COVID-19: Tested positive initially about 7 weeks ago. Unclear if this is residual RNA fragments in nares vs. re-infection with a variant. - Continue precautions - Presently on steroids for COPD, so believe this will cover even if Covid is contributing to presentation. (5) CKD (chronic kidney disease) stage 3, GFR 30-59 ml/min: Baseline Cr ~1.5. - Presently at baseline - Monitor Cr (6) DVT prophylaxis: Heparin 5000 units SQ Q12h Admission and Anticipated Discharge Date Admission Date: March 15, 2021 Subjective Very short of breath with increased work of breathing on my exam this afternoon. Unable to even really complete sentences. Physical Exam Constitutional: WD/WN, vitals as above Eyes: EOM intact bilaterally; no conjunctival abnormality ENMT: external ear and nose normal, oropharynx normal Neck: trachea midline, no thyromegaly normal visual inspection Respiratory: + respiratory distress, + labored breathing, + tachypneic, + prolonged expiratory phase and + audible wheezes; + not able to speak in complete sentence Auscultation: + wheezes Cardiovascular: RRR, no murmur, no edema Gastrointestinal (Abdomen): Inspection/Auscultation: abdomen normal to inspection; abdomen not distended Musculoskeletal: no cyanosis or clubbing, extremities motor strength 5/5 Skin: no rashes, warm and dry Neurologic: moves all extremities and awake Psychiatric: Orientation: alert, oriented to person and cooperative Results & Data Results & Data ([facility]) Vital Signs (Past 12 Hours) Vital Signs Temp Pulse Pulse Resp BP BP Pulse Ox 03/16/21 19:20 97 H 21 93 03/16/21 19:14 98 H 21 124/72 95 03/16/21 19:10 97 H 14 93 03/16/21 19:05 96 H 18 92 03/16/21 19:00 93 H 20 92 03/16/21 18:50 97 H 25 H 94 03/16/21 18:48 37.2 C 03/16/21 18:40 98 H 23 92 03/16/21 18:30 99 H 28 H 93 03/16/21 18:20 100 H 33 H 93 03/16/21 18:16 104 H 35 H 93 03/16/21 18:00 103 H 33 H 128/71 92 03/16/21 17:00 110 H 38 H 147/86 H 94 03/16/21 16:14 107 H 36 H 159/89 H 93 03/16/21 15:14 38.0 C H 118 H 35 H 181/98 H 91 03/16/21 14:16 117 H 30 H 96 03/16/21 13:36 94 03/16/21 11:33 36.6 C 84 16 156/81 H 95 03/16/21 09:08 163/79 H PG Care Time/CCT Total # of Minutes Spent Total Time Spent with Patient: Total time spent is greater than 50% in coordination of care (as documented) at patient's floor/unit and/or counseling patient: Coding Level of Care Code 92549 Subseq Hosp Care Lvl 3 Diagnoses Acute exacerbation of chronic obstructive pulmonary disease (COPD) J44.1 History of CVA (cerebrovascular accident) Z86.73 Hypertension I10 COVID-19 U07.1 CKD (chronic kidney disease) stage 3, GFR 30-59 ml/min N18.30 DVT prophylaxis Z29.9
[2021-03-17] MEDS: ALBUT/IPRATROP 3MG/0.5MG NEB 3 ML VIAL NEB SCH ×6 (03:20→22:52)
[2021-03-17 05:04] LABS: Hematocrit (blood only) 36.8 % (42-52); Hemoglobin 12.7 g/dL (14.0-18.0); Mean Corpuscular Hgb Conc 34.5 g/dL (32-36); Mean Corpuscular Volume 86.8 fL (80-100); RDW Coefficient of Variation 14.5 % (11.5-14.5); RDW Standard Deviation 46.2 fL (36.4-46.3); Red Blood Count 4.24 M/uL (4.7-6.1); White Blood Count 3.54 K/uL (4.8-10.8)
[2021-03-17 05:06] LABS: Mean Platelet Volume 10.7 fL (7.4-10.4); Platelet Count 54 K/uL (130-400)
[2021-03-17 05:46] LABS: BUN Creatinine Ratio 16.6 (10-20); Calcium 7.3 mg/dl (8.5-10.1); Creatinine Clr Calc Pharmacy 31.8 ml/min; Est GFR (African American) 46.7 ml/min; Est GFR (Non-African American) 40.3 ml/min; Magnesium 2.2 mg/dl (1.8-2.4); Potassium 3.3 mmol/L (3.5-5.1)
[2021-03-17 08:01] LABS: Anaplasmosis Smear(Rpt to DOH) Pos for Anaplasma
[2021-03-17] MEDS: TAMSULOSIN HCL 0.4 MG CAP PO SCH (10:25)
[2021-03-17] MEDS: PANTOprazole 40 MG TAB PO SCH (10:26)
[2021-03-17] MEDS: CEROVITE ADV FORMULA TAB PO SCH (10:26)
[2021-03-17] MEDS: CHLORTHALIDONE 25 MG TAB PO SCH (10:26)
[2021-03-17] MEDS: HEPARIN SOD 5,000 UNIT/0.5 ML VIAL SQ SCH (10:27)
[2021-03-17] MEDS: CLOPIDOGREL BISULFATE 75 MG TAB PO SCH (10:27)
[2021-03-17] MEDS: DOXYCYCLINE HYCLATE 100 MG in DEXTROSE 5% 100 ML IV SCH ×2 (10:27→23:05)
--- NOTE | 2021-03-17 10:39 | Critical Care Progress Note ---
Date of Service March 17, 2021 Assessment & Plan (1) Acute exacerbation of chronic obstructive pulmonary disease (COPD): Reason Critically Ill: 85-year-old male with acute exacerbation of COPD PLAN: Resp: Continue to maintain oxygen saturations of 92%. I have changed methylprednisone to prednisone 40 mg daily. CV: Tachycardia -Likely compensatory Fluids/Renal: Hypokalemia -repleted Chronic kidney disease appears his baseline creatinine is around 1.5 ID: Continue ceftriaxone. Azithromycin changed to doxycycline. 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 Antibiotics changed to doxycycline. ID consult placed. Airborne precautions discontinued as patient is greater than 30 days out of initial COVID-19 illness GI/Nutrition: Heart healthy diet Repeat LFTs today Heme: Leukopenia Thrombocytopenia which is likely related to anaplasmosis. PF4 antibody and serotonin release assay ordered. Hold anticoagulation Endocrine: ICU hyperglycemia protocol Vascular access: Peripheral IVs Code Status: Full code Disposition: ICU Patient is stable for transfer to the floor. (2) Febrile illness: (3) Acute hypoxemic respiratory failure: (4) Anaplasmosis: Admission and Anticipated Discharge Date Admission Date: March 15, 2021 Subjective Patient seen and examined. He is comfortable and lying in bed. He is currently on supplemental oxygen. He is not requiring any continuous drips. Review of Systems Review of Systems: All systems reviewed & are unremarkable except as noted in HPI & below Physical Exam Constitutional: WD/WN, vitals as above Respiratory: Diminished lung sounds bilaterally. No wheezing noted. Cardiovascular: RRR, no murmur, no edema Gastrointestinal (Abdomen): normal bowel sounds, soft, nontender, no hepatosplenomegaly Neurologic: PERRL, EOMI, accommodation nl, no face palsy, no dysarthria Psychiatric: A+Ox3, euthymic affect Results & Data Results & Data ([facility]) Vital Signs (Past 12 Hours) Vital Signs Pulse Pulse Pulse Resp BP Pulse Ox 03/17/21 08:15 99 H 25 H 151/87 H 94 03/17/21 08:00 93 H 25 H 95 03/17/21 07:37 88 18 96 03/17/21 07:14 78 19 107/74 93 03/17/21 07:00 73 24 93 03/17/21 06:15 71 22 117/67 93 03/17/21 06:00 67 20 94 03/17/21 05:14 75 22 126/76 93 03/17/21 05:00 76 22 93 03/17/21 04:14 76 24 136/73 92 03/17/21 04:00 96 H 26 H 83 L 03/17/21 03:20 73 18 93 03/17/21 03:00 62 21 94 03/17/21 02:15 70 24 121/62 92 03/17/21 02:00 71 22 93 03/17/21 01:15 73 24 121/70 97 03/17/21 01:00 73 24 95 03/17/21 00:15 87 25 H 131/74 93 03/17/21 00:00 78 23 131/74 91 03/16/21 23:59 86 03/16/21 23:00 86 28 H 112/74 93 Vital signs, labs and imaging reviewed Coding Level of Care Code 35638 Subseq Hosp Care Lvl 3 Diagnoses Acute exacerbation of chronic obstructive pulmonary disease (COPD) J44.1 Febrile illness R50.9 Acute hypoxemic respiratory failure J96.01 Anaplasmosis A77.49
[2021-03-17] MEDS: FLUTICASONE/VILANTEROL 200/25MCG 14 PUFFS/INHALER INH SCH (10:49)
[2021-03-17] MEDS: methylPREDNISolone 40 MG in SYRINGE 0 ML IV SCH (10:49)
[2021-03-17] MEDS ORDERED: POTASSIUM CHLORIDE CRTAB 20 MEQ TABCR PO STA (10:51)
[2021-03-17] MEDS ORDERED: POTASSIUM CHLORIDE 10 MEQ TABCR PO SCH (11:00)
[2021-03-17] MEDS ORDERED: VANCOMYCIN TROUGH ONE (11:30)
[2021-03-17 12:10] LABS: Albumin Level 2.8 gm/dl (3.4-5.0); Bilirubin,Total 0.6 mg/dl (0.2-1); Total Protein 6.4 gm/dl (6.4-8.2)
[2021-03-17 15:12] LABS: BUN Creatinine Ratio 18.8 (10-20); Calcium 8.4 mg/dl (8.5-10.1); Creatinine Clr Calc Pharmacy 31.4 ml/min; Est GFR (Non-African American) 39.7 ml/min; Potassium 3.3 mmol/L (3.5-5.1)
--- NOTE | 2021-03-17 17:45 | Hospitalist Progress Note ---
Date of Service March 17, 2021 Assessment & Plan (1) Acute exacerbation of chronic obstructive pulmonary disease (COPD): Improved COPD today. - Moved out of ICU. - Continue ceftriaxone/doxy. 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 - Azithromycin switched to doxycycline on 03/17 - Likely causing thrombocytopenia, but HIT-panel pending as well. (3) History of CVA (cerebrovascular accident): - Continue Plavix (4) Hypertension: BP presently 160/80. - Continue chlorthalidone (5) COVID-19: Tested positive initially about 7 weeks ago. Likely residual RNA fragments in nares. - Stop precautions (6) CKD (chronic kidney disease) stage 3, GFR 30-59 ml/min: Baseline Cr ~1.5. - Presently at baseline - Monitor Cr (7) DVT prophylaxis: Heparin 5000 units SQ Q12h Admission and Anticipated Discharge Date Admission Date: March 15, 2021 Subjective Doing tons better today. Still some shortness of breath with movement, but no pursed lip breathing. No fevers/chills. Reports no fevers/chills, chest pain, abdominal pain, nausea, or vomiting. Physical Exam Constitutional: WD/WN, vitals as above Eyes: EOM intact bilaterally; no conjunctival abnormality ENMT: external ear and nose normal, oropharynx normal Neck: trachea midline, no thyromegaly normal visual inspection Respiratory: + labored breathing and able to speak in complete sentences; no respiratory distress Auscultation: + wheezes Cardiovascular: RRR, no murmur, no edema Gastrointestinal (Abdomen): Inspection/Auscultation: abdomen normal to inspection; abdomen not distended Musculoskeletal: no cyanosis or clubbing, extremities motor strength 5/5 Skin: no rashes, warm and dry Neurologic: moves all extremities and awake Psychiatric: Orientation: alert, oriented to person and cooperative Results & Data Results & Data ([facility]) Vital Signs (Past 12 Hours) Vital Signs Temp Pulse Pulse Pulse Resp BP BP 03/17/21 15:53 100 H 18 03/17/21 14:27 37.5 C 104 H 24 162/81 H 03/17/21 12:14 110 H 30 H 157/84 H 03/17/21 12:00 36.9 C 109 H 37 H 03/17/21 11:14 94 H 33 H 167/93 H 03/17/21 11:00 88 87 19 03/17/21 10:15 83 23 159/83 H 03/17/21 10:00 85 21 03/17/21 09:14 90 25 H 147/80 H 03/17/21 09:00 90 27 H 03/17/21 08:16 98 H 25 H 03/17/21 08:15 99 H 25 H 151/87 H 03/17/21 08:00 81 25 H 03/17/21 07:37 88 18 03/17/21 07:14 78 19 107/74 03/17/21 07:00 73 24 03/17/21 06:15 71 22 117/67 03/17/21 06:00 67 20 Pulse Ox 03/17/21 15:53 94 03/17/21 14:27 95 03/17/21 12:14 96 03/17/21 12:00 93 03/17/21 11:14 96 03/17/21 11:00 93 03/17/21 10:15 93 03/17/21 10:00 93 03/17/21 09:14 92 03/17/21 09:00 93 03/17/21 08:16 94 03/17/21 08:15 94 03/17/21 08:00 95 03/17/21 07:37 96 03/17/21 07:14 93 03/17/21 07:00 93 03/17/21 06:15 93 03/17/21 06:00 94 PG Care Time/CCT Total # of Minutes Spent Total Time Spent with Patient: Total time spent is greater than 50% in coordination of care (as documented) at patient's floor/unit and/or counseling patient: Coding Level of Care Code 94928 Subseq Hosp Care Lvl 3 Diagnoses Acute exacerbation of chronic obstructive pulmonary disease (COPD) J44.1 Anaplasmosis A77.49 History of CVA (cerebrovascular accident) Z86.73 Hypertension I10 COVID-19 U07.1 CKD (chronic kidney disease) stage 3, GFR 30-59 ml/min N18.30 DVT prophylaxis Z29.9
[2021-03-17] MEDS: cefTRIAXone SODIUM 1,000 MG in DEXTROSE 5% 50 ML IV SCH (20:45)
[2021-03-17] MEDS: CITALOPRAM 20 MG TAB PO SCH (22:07)
[2021-03-17] MEDS: MONTELUKAST SODIUM 10 MG TABLET PO SCH (22:08)
[2021-03-17] MEDS: FINASTERIDE 5 MG TAB PO SCH (22:08)
[2021-03-17] MEDS: rOPINIRole HCL 1 MG TABLET PO SCH (22:09)
[2021-03-17] MEDS: SIMVASTATIN 40 MG TAB PO SCH (22:09)
[2021-03-18] MEDS: ALBUT/IPRATROP 3MG/0.5MG NEB 3 ML VIAL NEB SCH ×6 (03:06→22:38)
[2021-03-18 08:41] LABS: Hematocrit (blood only) 35.2 % (42-52); Hemoglobin 12.2 g/dL (14.0-18.0); Mean Corpuscular Hemoglobin 29.3 pg (25-34); Mean Corpuscular Hgb Conc 34.7 g/dL (32-36); Mean Corpuscular Volume 84.6 fL (80-100); RDW Coefficient of Variation 14.6 % (11.5-14.5); RDW Standard Deviation 45.2 fL (36.4-46.3); Red Blood Count 4.16 M/uL (4.7-6.1); White Blood Count 4.74 K/uL (4.8-10.8)
[2021-03-18 08:43] LABS: Mean Platelet Volume 11.7 fL (7.4-10.4); Platelet Count 59 K/uL (130-400)
[2021-03-18 09:08] LABS: Albumin Level 2.6 gm/dl (3.4-5.0); BUN Creatinine Ratio 18.3 (10-20); Calcium 8.4 mg/dl (8.5-10.1); Creatinine Clr Calc Pharmacy 32.4 ml/min; Est GFR (African American) 47.8 ml/min; Est GFR (Non-African American) 41.3 ml/min; Potassium 3.3 mmol/L (3.5-5.1)
[2021-03-18 09:10] LABS: Albumin Globulin Ratio 0.8 (0.9-2); Bilirubin,Total 0.5 mg/dl (0.2-1); Globulin 3.2 gm/dl (2.5-4.0); Total Protein 5.8 gm/dl (6.4-8.2)
[2021-03-18] MEDS: DOXYCYCLINE HYCLATE 100 MG in DEXTROSE 5% 100 ML IV SCH ×2 (10:15→21:05)
[2021-03-18] MEDS: CHLORTHALIDONE 25 MG TAB PO SCH (10:16)
[2021-03-18] MEDS: CLOPIDOGREL BISULFATE 75 MG TAB PO SCH (10:17)
[2021-03-18] MEDS: predniSONE 20 MG TAB PO SCH (10:18)
[2021-03-18] MEDS: CEROVITE ADV FORMULA TAB PO SCH (10:18)
[2021-03-18] MEDS: TAMSULOSIN HCL 0.4 MG CAP PO SCH (10:18)
[2021-03-18] MEDS: PANTOprazole 40 MG TAB PO SCH (10:18)
[2021-03-18] MEDS: FLUTICASONE/VILANTEROL 200/25MCG 14 PUFFS/INHALER INH SCH (10:20)
--- NOTE | 2021-03-18 15:06 | Hospitalist Progress Note ---
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 - Azithromycin switched to doxycycline on 03/17. Ten-day course (End date: 03/27/2021) - Likely causing thrombocytopenia, but HIT-panel pending as well. (2) Acute exacerbation of chronic obstructive pulmonary disease (COPD): Improved COPD today. - Moved out of ICU on 03/17. - Continue doxy x 10 days. - Stop ceftriaxone per ID. - Switched to prednisone 40 mg PO daily (3) History of CVA (cerebrovascular accident): - Continue Plavix - Plan for video swallow on 03/19 due to chronic aspiration. Family will also encourage patient to do this. (4) Hypertension: BP presently 155/80. - Continue chlorthalidone (5) COVID-19: Tested positive initially about 7 weeks ago. Likely residual RNA fragments in nares. - Stop precautions (6) CKD (chronic kidney disease) stage 3, GFR 30-59 ml/min: Baseline Cr ~1.5. - Presently at baseline (7) DVT prophylaxis: Heparin 5000 units SQ Q12h Admission and Anticipated Discharge Date Admission Date: March 15, 2021 Subjective Continues remarkable improvement. Able to speak in full sentences, moving around. Doing well. Reports no fevers/chills, chest pain, shortness of breath, abdominal pain, nausea, or vomiting. Physical Exam Constitutional: WD/WN, vitals as above Eyes: EOM intact bilaterally; no conjunctival abnormality ENMT: external ear and nose normal, oropharynx normal Neck: trachea midline, no thyromegaly normal visual inspection Respiratory: able to speak in complete sentences; no respiratory distress and no cough Auscultation: lungs clear to auscultation bilaterally Cardiovascular: RRR, no murmur, no edema Gastrointestinal (Abdomen): Inspection/Auscultation: abdomen normal to inspection; abdomen not distended Musculoskeletal: no cyanosis or clubbing, extremities motor strength 5/5 Skin: no rashes, warm and dry Neurologic: moves all extremities and awake Psychiatric: Orientation: alert, oriented to person and cooperative Results & Data Results & Data ([facility]) Vital Signs (Past 12 Hours) Vital Signs Temp Pulse Resp BP BP Pulse Ox Pulse Ox 03/18/21 11:45 36.8 C 109 H 18 156/81 H 93 03/18/21 11:04 113 H 20 94 03/18/21 10:10 94 03/18/21 08:17 36.7 C 84 18 155/83 H 94 03/18/21 07:23 74 19 92 03/18/21 03:13 36.5 C 60 17 143/81 H 98 03/18/21 03:06 75 18 94 Pulse Ox 03/18/21 11:45 03/18/21 11:04 03/18/21 10:10 95 03/18/21 08:17 03/18/21 07:23 03/18/21 03:13 03/18/21 03:06 PG Care Time/CCT Total # of Minutes Spent Total Time Spent with Patient: Total time spent is greater than 50% in coordination of care (as documented) at patient's floor/unit and/or counseling patient: Coding Level of Care Code 87773 Subseq Hosp Care Lvl 2 Diagnoses Anaplasmosis A77.49 Acute exacerbation of chronic obstructive pulmonary disease (COPD) J44.1 History of CVA (cerebrovascular accident) Z86.73 Hypertension I10 COVID-19 U07.1 CKD (chronic kidney disease) stage 3, GFR 30-59 ml/min N18.30 DVT prophylaxis Z29.9
[2021-03-18] MEDS: MONTELUKAST SODIUM 10 MG TABLET PO SCH (20:31)
[2021-03-18] MEDS: FINASTERIDE 5 MG TAB PO SCH (20:31)
[2021-03-18] MEDS: CITALOPRAM 20 MG TAB PO SCH (20:31)
[2021-03-18] MEDS: rOPINIRole HCL 1 MG TABLET PO SCH (20:31)
[2021-03-18] MEDS: SIMVASTATIN 40 MG TAB PO SCH (20:31)
[2021-03-18] MEDS: cefTRIAXone SODIUM 1,000 MG in DEXTROSE 5% 50 ML IV SCH (20:34)
[2021-03-19] MEDS: ALBUT/IPRATROP 3MG/0.5MG NEB 3 ML VIAL NEB SCH ×6 (03:02→23:13)
[2021-03-19] MEDS: predniSONE 20 MG TAB PO SCH (08:19)
[2021-03-19] MEDS: FLUTICASONE/VILANTEROL 200/25MCG 14 PUFFS/INHALER INH SCH (08:19)
[2021-03-19] MEDS: CLOPIDOGREL BISULFATE 75 MG TAB PO SCH (08:19)
[2021-03-19] MEDS: CEROVITE ADV FORMULA TAB PO SCH (08:19)
[2021-03-19 08:20] LABS: Hemoglobin 12.5 g/dL (14.0-18.0); Mean Corpuscular Hemoglobin 29.3 pg (25-34); Mean Corpuscular Hgb Conc 34.7 g/dL (32-36); Mean Corpuscular Volume 84.3 fL (80-100); RDW Coefficient of Variation 14.5 % (11.5-14.5); RDW Standard Deviation 45.1 fL (36.4-46.3); Red Blood Count 4.27 M/uL (4.7-6.1); White Blood Count 7.72 K/uL (4.8-10.8)
[2021-03-19] MEDS: PANTOprazole 40 MG TAB PO SCH (08:20)
[2021-03-19] MEDS: TAMSULOSIN HCL 0.4 MG CAP PO SCH (08:20)
[2021-03-19] MEDS: DOXYCYCLINE HYCLATE 100 MG in DEXTROSE 5% 100 ML IV SCH ×2 (08:20→20:46)
[2021-03-19] MEDS ORDERED: POLYETHYLENE (MIRALAX) 17 GM PACK PO PRN (08:47)
[2021-03-19 08:50] LABS: Albumin Level 2.9 gm/dl (3.4-5.0); BUN Creatinine Ratio 17.9 (10-20); Calcium 8.6 mg/dl (8.5-10.1); Creatinine Clr Calc Pharmacy 32.7 ml/min; Est GFR (African American) 48.2 ml/min; Est GFR (Non-African American) 41.6 ml/min; Potassium 2.9 mmol/L (3.5-5.1)
[2021-03-19 08:53] LABS: Albumin Globulin Ratio 0.9 (0.9-2); Bilirubin,Total 0.5 mg/dl (0.2-1); Globulin 3.2 gm/dl (2.5-4.0); Total Protein 6.1 gm/dl (6.4-8.2)
[2021-03-19 09:02] LABS: Platelet Count 75 K/uL (130-400); Platelet Estimate Decreased (Normal)
[2021-03-19] MEDS: CHLORTHALIDONE 25 MG TAB PO SCH (10:13)
[2021-03-19] MEDS: POTASSIUM CHLORIDE / WTR 10 MEQ/100 ML PLCT IV SCH ×4 (10:13→14:25)
--- NOTE | 2021-03-19 12:55 | Fluoroscopy Report ---
MODIFIED BARIUM SWALLOW CLINICAL HISTORY: h/o aspiration COMPARISON STUDY: Modified swallow October 07, 2017. FLUOROSCOPY TIME: 2.5 minutes. TECHNIQUE: A modified barium swallow was performed in conjunction with Speech Pathology. The patient ingested varying consistencies of barium containing material. Video fluoroscopy was performed. FINDINGS: Note was made of several episodes of silent tracheal aspiration with thin liquids by spoon. No aspiration was identified with nectar thick liquids, pudding or crackers with paste. Vallecular r etention was noted with pudding consistencies. There was delayed initiation of the swallowing mechani sm. Severe esophageal dysmotility was noted. IMPRESSION: 1. Several episodes of silent tracheal aspiration with thin liquids by spoon. No aspiration with the remainder of the consistencies. 2. Severe esophageal dysmotility. 3. Full recommendations by speech pathology to follow. ACT 112: Negative or not required by law. Electronically signed by: Nabeel Killian M.D. 03/19/2021 12:54 PM
[2021-03-19] MEDS: cefTRIAXone SODIUM 1,000 MG in DEXTROSE 5% 50 ML IV SCH (20:10)
[2021-03-19] MEDS: rOPINIRole HCL 1 MG TABLET PO SCH (20:17)
[2021-03-19] MEDS: MONTELUKAST SODIUM 10 MG TABLET PO SCH (20:17)
[2021-03-19] MEDS: CITALOPRAM 20 MG TAB PO SCH (20:17)
[2021-03-19] MEDS: FINASTERIDE 5 MG TAB PO SCH (20:17)
[2021-03-19] MEDS: SIMVASTATIN 40 MG TAB PO SCH (20:17)
--- NOTE | 2021-03-19 22:13 | Hospitalist Progress Note ---
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 - Azithromycin switched to doxycycline on 03/17. Ten-day course (End date: 03/27/2021) - Likely causing thrombocytopenia, but HIT-panel pending as well. (2) Acute exacerbation of chronic obstructive pulmonary disease (COPD): Improved COPD today. - Moved out of ICU on 03/17. - Continue doxy x 10 days. - Stop ceftriaxone per ID. - Switched to prednisone 40 mg PO daily (3) History of CVA (cerebrovascular accident): - Continue Plavix - Plan for video swallow on 03/19 due to chronic aspiration. Family will also encourage patient to do this. (4) Hypertension: BP presently 155/80. - Continue chlorthalidone (5) COVID-19: Tested positive initially about 7 weeks ago. Likely residual RNA fragments in nares. - Stop precautions (6) CKD (chronic kidney disease) stage 3, GFR 30-59 ml/min: Baseline Cr ~1.5. - Presently at baseline (7) DVT prophylaxis: Heparin 5000 units SQ Q12h Admission and Anticipated Discharge Date Admission Date: March 15, 2021 Subjective 85 yo male is doing better. He is breathing better and has no new complaints. He is agreeable to video swallow. Review of Systems Review of Systems: All systems reviewed & are unremarkable except as noted in HPI & below Physical Exam Physical Exam: Constitutional: WD/WN, vitals as above Eyes: EOM intact bilaterally; no conjunctival abnormality ENMT: external ear and nose normal, oropharynx normal Neck: trachea midline, no thyromegaly normal visual inspection Respiratory: able to speak in complete sentences; no respiratory distress and no cough Auscultation: lungs clear to auscultation bilaterally Cardiovascular: RRR, no murmur, no edema Gastrointestinal (Abdomen): Inspection/Auscultation: abdomen normal to inspection; abdomen not distended Musculoskeletal: no cyanosis or clubbing, extremities motor strength 5/5 Skin: no rashes, warm and dry Neurologic: moves all extremities and awake Psychiatric: Orientation: alert, oriented to person and cooperative Results & Data Results & Data ([facility]) Vital Signs (Past 12 Hours) Vital Signs Pulse Resp Pulse Ox 03/19/21 19:46 110 H 15 93 03/19/21 15:19 95 H 16 97 03/19/21 11:14 99 H 16 95 PG Care Time/CCT Total # of Minutes Spent Total Time Spent with Patient: Total time spent is greater than 50% in coordination of care (as documented) at patient's floor/unit and/or counseling patient: Coding Level of Care Code 55408 Subseq Hosp Care Lvl 2 Diagnoses Anaplasmosis A77.49 Acute exacerbation of chronic obstructive pulmonary disease (COPD) J44.1 History of CVA (cerebrovascular accident) Z86.73 Hypertension I10 COVID-19 U07.1 CKD (chronic kidney disease) stage 3, GFR 30-59 ml/min N18.30 DVT prophylaxis Z29.9 Time Spent (min) 25
[2021-03-20] MEDS: ALBUT/IPRATROP 3MG/0.5MG NEB 3 ML VIAL NEB SCH ×4 (03:41→16:01)
[2021-03-20] MEDS: FLUTICASONE/VILANTEROL 200/25MCG 14 PUFFS/INHALER INH SCH (08:58)
[2021-03-20] MEDS: CLOPIDOGREL BISULFATE 75 MG TAB PO SCH (08:58)
[2021-03-20] MEDS: DOXYCYCLINE HYCLATE 100 MG in DEXTROSE 5% 100 ML IV SCH (08:58)
[2021-03-20] MEDS: CHLORTHALIDONE 25 MG TAB PO SCH (08:58)
[2021-03-20] MEDS: TAMSULOSIN HCL 0.4 MG CAP PO SCH (08:59)
[2021-03-20] MEDS: predniSONE 20 MG TAB PO SCH (08:59)
[2021-03-20] MEDS: CEROVITE ADV FORMULA TAB PO SCH (08:59)
[2021-03-20] MEDS: PANTOprazole 40 MG TAB PO SCH (08:59)
[2021-03-20 17:40] LABS: BUN Creatinine Ratio 17.1 (10-20); Calcium 9.1 mg/dl (8.5-10.1); Creatinine Clr Calc Pharmacy 31.2 ml/min; Est GFR (African American) 45.6 ml/min; Est GFR (Non-African American) 39.4 ml/min; Potassium 3.5 mmol/L (3.5-5.1)
--- NOTE | 2021-03-24 22:20 | Discharge Summary ---
Date of Service March 20, 2021 Admission HPI Per Admitting Provider Patient is an 85-year-old male with significant past medical history of COPD significant bullae and prior COVID-19 infection who presents with increasing shortness of breath and respiratory distress. He had worsening shortness of breath on the floor despite nebs and steroids was transferred for the ICU for further evaluation and management. There is also concern that if positive pressure would cause the significant large bullae to rupture he would require emergent chest tube placement. Principal Diagnosis anaplasmosis Discharge Exam Constitutional: WD/WN, vitals as above Eyes: EOM intact bilaterally; no conjunctival abnormality ENMT: external ear and nose normal, oropharynx normal Neck: trachea midline, no thyromegaly normal visual inspection Respiratory: able to speak in complete sentences; no respiratory distress and no cough Auscultation: lungs clear to auscultation bilaterally Cardiovascular: RRR, no murmur, no edema Gastrointestinal (Abdomen): Inspection/Auscultation: abdomen normal to inspection; abdomen not distended Musculoskeletal: no cyanosis or clubbing, extremities motor strength 5/5 Skin: no rashes, warm and dry Neurologic: moves all extremities and awake Psychiatric: Orientation: alert, oriented to person and cooperative Discharge Data Allergies Allergy/AdvReac Type Severity Reaction Status Date / Time Sulfa (Sulfonamide Allergy Intermediate RASH Verified 03/15/21 15:12 Antibiotics) Consultations 03/15/21 15:51 ED Decision to Admit Stat 03/16/21 15:24 Consult Budget Technician Routine 03/17/21 09:45 Consult Infectious Diseases Routine Ordered Studies 03/15/21 19:39 CT chest diagnostic wo con Stat 03/19/21 11:30 FL video swallow Routine Hospital Course (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 - Azithromycin switched to doxycycline on 03/17. Ten-day course (End date: 03/27/2021) - Likely causing thrombocytopenia. You will be discharged on doxycycline to complete course for anaplasmosis (2) Acute exacerbation of chronic obstructive pulmonary disease (COPD): Improved COPD today. - Moved out of ICU on 03/17. - Continue doxy x 10 days. - Stop ceftriaxone per ID. - Switched to prednisone 40 mg PO daily will be discharged on a steroid taper (3) History of CVA (cerebrovascular accident): - Continue Plavix - Plan for video swallow on 03/19 due to chronic aspiration. Family will also encourage patient to do this. (4) Hypertension: BP presently 155/80. - Continue chlorthalidone (5) COVID-19: Tested positive initially about 7 weeks ago. Likely residual RNA fragments in nares. - Stop precautions (6) CKD (chronic kidney disease) stage 3, GFR 30-59 ml/min: Baseline Cr ~1.5. - Presently at baseline (7) DVT prophylaxis: Heparin 5000 units SQ Q12h Total Time Total Time Spent Total Time Spent (In Minutes): 32 Total Time Includes: Examination of the Patient, Discharge Planning and Medication Reconciliation Discharge Plan Discharge Items Patient Disposition: Home - Self-Care Reason For Visit: PNA Discharge Diagnosis: anaplasmosis Activity: Resume your previous activity Non-emergency contact: Primary Care Provider Call non-emergency contact if: you have any medication questions Follow-up/Referrals: Parveen Lopez III, MD [Primary Care Provider] - 03/28/21 10:30 am Diet: Regular Addtl Attending Provider Instructions: You had anaplasmosis, will recommend you continue antibiotics for 13 more doses. you will be on a steroid taper as well. Recommend followup with PCP in 1-2 weeks. Pending Studies at Discharge: No Stand-Alone Forms: My [employer], Smoking Cessation Medications and DC Order Prescriptions: New doxycycline hyclate 100 mg tablet 100 mg PO BID Qty: 13 RF: 0 prednisone 10 mg tablet 10 mg PO DAILY Qty: 20 RF: 0 potassium chloride 10 mEq tablet extended release 10 meq PO DAILY Qty: 7 RF: 0 Continued chlorthalidone 25 mg tablet 12.5 mg PO QAM RF: 0 pantoprazole 40 mg tablet,delayed release (DR/EC) 40 mg PO QAM Qty: 30 RF: 0 clopidogrel 75 mg tablet 75 mg PO QAM RF: 0 tamsulosin 0.4 mg capsule 0.4 mg PO QAM Qty: 90 RF: 0 budesonide-formoterol 160-4.5 mcg/actuation HFA aerosol inhaler 2 puffs inhalation BID Qty: 1 RF: 0 ropinirole 1 mg Tablet 1 mg PO HS RF: 0 simvastatin 80 mg Tablet 40 mg PO HS RF: 0 montelukast [Singulair] 10 mg Tablet 10 mg PO HS RF: 0 multivitamin with minerals Tablet 1 tab PO QAM RF: 0 albuterol sulfate 90 mcg/actuation Hfa Aerosol Inhaler 1 - 2 puff INHALATION DIRECTED PRN (Reason: Shortness Of Breath) RF: 0 finasteride 5 mg Tablet 5 mg PO HS RF: 0 PreserVision AREDS-2 250-90-40-1 mg Capsule 1 tab PO BID RF: 0 citalopram 10 mg tablet 10 mg PO HS RF: 0 Discharge Orders: Discharge Order (Routine); Ordered 03/20/21 Ordered By: Pelon Bernstein Admission Data Admit Date/Time: 03/15/21 16:23 Attending Provider: Pelon Bernstein Admit Provider: Sanjiv Tijerina Primary Care Provider: Parveen Lopez III Other Providers: Lai Rosado ; Sanjiv Tijerina ; David Huber ; Baron Hernandez ; Jhonatan Patterson ; Kimani Carson I. ; Nader Gusman II ; Julia Blas ; Adam Zhou Other Interventions: Discharge Summary Assessment (RN) Last Done: 03/20/21 15:30 Coding Level of Care Code D/C Day Management >30 mins Diagnoses Anaplasmosis A77.49 Acute exacerbation of chronic obstructive pulmonary disease (COPD) J44.1 History of CVA (cerebrovascular accident) Z86.73 Hypertension I10 COVID-19 U07.1 CKD (chronic kidney disease) stage 3, GFR 30-59 ml/min N18.30 DVT prophylaxis Z29.9
== END 2021-03-20 17:27 | disposition home or self-care (01) | DRG 190 ==
LOC: ED 12:30 → 2W 16:23 → SUATTDRO 16:23 → 2W 18:12 → 1E 03-16 14:19 → 2W 03-17 11:56

== ENCOUNTER 2022-10-25 14:04 | Inpatient (IN) ==
[2022-10-25] MEDS ORDERED: FAMOTIDINE 20MG IV PUSH 20 MG/5 ML SYR IV STA (14:13)
[2022-10-25] MEDS ORDERED: SODIUM CHLORIDE 0.9% 500 ML IV ONE ×2 (14:13→17:36)
[2022-10-25] MEDS ORDERED: ONDANSETRON INJ 2 MG/ML 2 ML VIAL IV STA (14:13)
[2022-10-25 14:45] LABS: Basophils # (auto) 0.02 K/uL (0-0.2); Basophils % (auto) 0.2 %; Hematocrit (blood only) 40.1 % (40.1-51.0); Hemoglobin 13.1 g/dl (14.0-18.0); Immature Granulocytes # (auto) 0.03 K/uL (0.00-0.02); Immature Granulocytes % (auto) 0.4 %; Lymphocytes # (auto) 0.51 K/uL (1.2-3.4); Mean Corpuscular Hemoglobin 30.1 pg (25.0-34.0); Mean Corpuscular Hgb Conc 32.7 g/dL (32.0-36.0); Mean Corpuscular Volume 92.2 fL (80.0-100.0); Monocytes # (auto) 0.32 K/uL (0.24-0.82); Monocytes % (auto) 3.8 %; Neutrophils # (auto) 7.64 K/uL (1.4-6.5); Neutrophils % (auto) 89.6 %; Platelet Count 177 K/uL (130-400); RDW Coefficient of Variation 13.9 % (11.5-14.5); RDW Standard Deviation 47.3 fL (36.4-46.3); Red Blood Count 4.35 M/uL (4.63-6.08); White Blood Count 8.52 K/ul (4.8-10.8)
[2022-10-25 15:06] LABS: Albumin Globulin Ratio 1.3 (0.9-2); BUN Creatinine Ratio 19.3 (10-20); Bilirubin Direct 0.2 mg/dl (0-0.2); Bilirubin,Total 0.8 mg/dl (0.2-1.0); Calcium 9.3 mg/dl (8.5-10.1); Creatinine Clr Calc Pharmacy 34.5 ml/min; Est GFR (African American) 53.6 ml/min; Est GFR (Non-African American) 46.2 ml/min; Potassium 4.1 mmol/L (3.5-5.1)
[2022-10-25] MEDS ORDERED: OPTIRAY 350 100ml IV ONE (16:14)
--- NOTE | 2022-10-25 16:39 | CT Scan Report ---
ABDOMEN AND PELVIS CT WITH IV CONTRAST CT DOSE: 286.24 mGy.cm HISTORY: Acute generalized abdominal pain with nausea abd pain,nausea TECHNIQUE: Multiaxial CT images of the abdomen and pelvis were performed following the IV administrat ion of 89 cc of Optiray, A dose lowering technique was utilized adhering to the principles of ALARA. COMPARISON STUDY: CT abdomen 04/20/2018 FINDINGS: Cardiomegaly with coronary artery calcifications. Trace pericardial effusion. Trace right a nd small left pleural effusions. 1.0 cm solid nodule of the medial basal segment right lower lobe. Mi ld bibasilar bronchial wall thickening with atelectasis/scarring. Partially imaged large bulla of the lingula again noted. There are a few ill-defined subcentimeter nodules present within the basal righ t lower lobe measuring up to 4 mm. No pneumatosis or pneumoperitoneum. Unremarkable spleen and adrenal glands. 3 cm cystic lesion of the pancreatic head previously measured approximately 2 cm. Mild pancreatic ductal prominence. Additional stable 1.5 cm cystic lesion of the pancreatic head on image 122. Cholelithiasis. Unchanged probable hemangioma of the right hepatic lob e, 2.3 cm. Bilateral renal cysts are redemonstrated. Treated 3.6 cm mixed attenuating exophytic lesio n of the inferior pole right kidney is unchanged. Mild urothelial thickening noted throughout the lef t renal pelvis and ureter. Dilation of the distal left greater than right ureters. Marked prostamegal y measures up to 7.7 cm. Circumferential urinary bladder wall thickening with a few urinary bladder d iverticula. Small fat filled inguinal hernias. Atherosclerosis of the aorta without aneurysm. No lymp hadenopathy identified. Large hiatal hernia contains the majority of the stomach and also a portion of the transverse colon. Moderate colonic fecal retention. The appendix is not definitively seen. There is no small bowel obst ruction. There is focal narrowing of the sigmoid colon with twisting of the mesentery on image 244 se nilda 3 and upstream colonic distention measuring up to approximately 9 cm. Extensive colonic divertic ulosis. Mild generalized body wall edema. Degenerative changes of the spine, pelvis and hips. No acut e fracture identified. Mild lumbar levoscoliosis. IMPRESSION: 1. Sigmoid volvulus results in high-grade narrowing of the sigmoid colon with upstream colonic disten tion. 2. Large hiatal hernia contains the majority of the stomach and a portion of the transverse colon. 3. Increased size of the cystic lesion within the pancreatic head now measuring 3 cm, possibly a side branch IPMN. 4. Cholelithiasis. 5. Stable treated exophytic lesion of the right kidney. 6. Marked prostamegaly with evidence of chronic bladder outlet obstruction. 7. Urothelial thickening of the left renal pelvis and ureter suspicious for infection. Correlate with urinalysis. 8. Additional findings as above. ACT 112: Negative or not required by law. The above report was generated using voice recognition software. It may contain grammatical, syntax o r spelling errors. Electronically signed by: Jaxson Patel M.D. 10/25/2022 4:37 PM
[2022-10-25 17:28] LABS: Appearance Urine Cloudy (Clear); Bacteria Urine Automated 2+ (Negative); Bilirubin Urine Negative (Negative); Blood Urine 1+ (Negative); Color Urine Yellow; Epithelial Cell Urine Auto 0-5 /lpf (0-5); Glucose Urine UA Negative (Negative); Ketones Urine Negative (Negative); Leukocyte Esterase Urine 3+ (Negative); Nitrite Urine Negative (Negative); Protein Urine 1+ (Negative); RBC Urine Automated 0-4 /hpf (0-4); Specific Gravity Urine 1.013 (1.000-1.030); Urobilinogen Urine Negative (Negative); WBC Urine Automated >30 /hpf (0-5); pH Urine 6.5 (4.5-7.5)
[2022-10-25] MEDS ORDERED: MoRPHine SULFATE 2 MG/ML CARP IV STA (17:36)
[2022-10-25] MEDS ORDERED: cefTRIAXone SODIUM 2,000 MG/70 ML BAG IV STA (17:41)
[2022-10-25] MEDS ORDERED: MINERAL OIL 30 ML UDC ONE (18:29)
--- NOTE | 2022-10-25 18:35 | History & Physical Report ---
Date of Service October 25, 2022 Assessment & Plan (1) Abdominal distention: (2) Volvulus of sigmoid colon: Plan: Abdominal distention Worsened over the past 24 hours. Patient has distention on exam with tenderness. CT abdomen pelvis notable for sigmoid volvulus resulting in high-grade narrowing of the sigmoid colon, large hiatal hernia containing majority of stomach and depression of transverse colon. 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 ER physician had discussed with surgeon who recommended management by GI with endoscopy. Discussed with network account manager. Patient being prepped for endoscopic decompression Keep n.p.o. EKG preop Follow-up postop Continue IV fluids Pain control (3) COVID-19: Plan: Patient tested positive for COVID-19. Reports chronic cough, dyspnea on exertion and congestion. Stated that these are not new and has not worsened recently. Will continue to monitor for now No need for COVID-specific therapies. Currently on room air. Airborne precautions. (4) CKD (chronic kidney disease) stage 3, GFR 30-59 ml/min: Plan: Creatinine is stable. Monitor renal function Avoid nephrotoxins. (5) History of CVA (cerebrovascular accident): Plan: Patient on atorvastatin and Plavix at home. Plavix currently on hold in view of procedure. Currently NPO. (6) Asthma: Plan: Stable Continue inhalers (7) Hypertension: Plan: Hold home antihypertensives while npo IV hydralazine prn to control BP (8) DVT prophylaxis: Plan: Hold off pharmacological agent for now in view of procedure Full code Dispo -PCU or ICU post procedure History of Present Illness Chief Complaint: Abdominal distention Primary Care Provider: Mali Krause MD 87-year-old man with history of hypertension, asthma, restless leg syndrome, C KD 3, reported history of CVA 3 years ago who presents with abdominal distention that worsened the past 24 hours. Patient reports that he usually has some swelling around his umbilicus for some time. However, since yesterday night swelling has gotten worse. This is associated with pain. Also reports nausea but no vomiting. Last bowel movement was 2 days ago. Last time he remember passing flatus was yesterday. Reports chronic cough unchanged, chronic exertional dyspnea and intermittent congestion since after stroke some years ago Denied any fevers, chills Denied palpitation, chest pain, shortness of breath at rest. Denied any headache, dizziness Reports some hesitancy that started a few days ago. Denied dysuria, freq, hematuria, incontinence Family history notable for mother from Alzheimer's, sister had a brain tumor. 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 Patient denied alcohol use, cigarette smoking or illicit drug use. Allergies Allergy/AdvReac Type Severity Reaction Status Date / Time Sulfa (Sulfonamide Allergy Intermediate RASH PER Verified 10/25/22 17:52 Antibiotics) G Home Medications Medication Instructions Recorded Confirmed Type clopidogrel 75 mg tablet 75 mg PO QAM 07/09/19 10/25/22 History tamsulosin 0.4 mg capsule 0.4 mg PO QAM #90 caps 07/09/19 10/25/22 History finasteride 5 mg tablet 5 mg PO HS 03/15/21 10/25/22 History montelukast 10 mg tablet 10 mg PO HS 03/15/21 10/25/22 History (Singulair) multivitamin with minerals 1 tab PO QAM 03/15/21 10/25/22 History vit C 250 mg-vit E 90 mg-zinc 40 1 tab PO BID 03/15/21 10/25/22 History mg-copper 1 [id number] capsule (PreserVision AREDS-2) amlodipine 5 mg tablet 5 mg PO DAILY 07/28/21 10/25/22 History atorvastatin 40 mg tablet 40 mg PO QPM 07/28/21 10/25/22 History lisinopril 5 mg tablet 5 mg PO DAILY 07/28/21 10/25/22 History citalopram 10 mg tablet 10 mg PO HS #30 tabs 09/01/21 10/25/22 Rx tiotropium bromide 2.5 2 puff inhalation DAILY 01/24/22 10/25/22 History mcg/actuation mist for inhalation (Spiriva Respimat) cyanocobalamin (vitamin B-12) 1,000 mcg PO DAILY 10/25/22 10/25/22 History 1,000 mcg tablet (Vitamin B-12) mometasone-formoterol HFA 200 2 puff inhalation BID 10/25/22 10/25/22 History mcg-5 mcg/actuation aerosol inhaler (Dulera) omeprazole 20 mg capsule,delayed 20 mg PO DAILY 10/25/22 10/25/22 History release ropinirole 3 mg tablet 3 mg PO HS 10/25/22 10/25/22 History Past Med/Surg History Medical History Anaplasmosis Angina pectoris Atrial fibrillation BPH loc w urin obs/LUTS CKD (chronic kidney disease) stage 3, GFR 30-59 ml/min Elevated PSA Hypertension Ingrown toenail Lesion of nose Surgical History History of cataract surgery History of colonoscopy History of eyelid surgery History of hernia repair History of prostate biopsy History of sinus surgery Family History Brother Prostate cancer Father Prostate cancer Social History Smoking Status: Never smoker Hx Alcohol Use: No Hx Substance Use: No Preferred Language: [place] Communication Ability: Effective 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 Beliefs That Will Affect Care: None marital status: Current Living Situation: Spouse current occupational status: retired Feels Safe at Home: Yes Assistive Devices: Glasses Review of Systems Review of Systems: All systems reviewed & are unremarkable except as noted in HPI & below Physical Exam Constitutional: + well hydrated; no acute distress Eyes: PERRL, conjunctivae normal, anicteric sclerae ENMT: external ear and nose normal, oropharynx normal Respiratory: normal respiratory effort, lungs clear to auscultation Cardiovascular: Rate/Rhythm: regular rate and regular rhythm S1 S2 Gastrointestinal (Abdomen): Firm, distended, tender, reduced bowel sounds Musculoskeletal: no cyanosis or clubbing, extremities motor strength 5/5 Neurologic: PERRL, EOMI, accommodation nl, no face palsy, no dysarthria Psychiatric: A+Ox3, euthymic affect Genitourinary: [place] in situ Results & Data Results & Data ([facility]) Vital Signs (Past 12 Hours) Vital Signs Temp Pulse Pulse Resp BP BP Pulse Ox 10/25/22 17:57 108 H 18 174/93 H 92 10/25/22 14:04 98 H 18 180/97 H 94 10/25/22 15:02 10/25/22 14:05 36.5 C 121 H 19 171/101 H 92 O2 Del Method 10/25/22 17:57 Room Air 10/25/22 14:04 Room Air 10/25/22 15:02 Room Air 10/25/22 14:05 Room Air Laboratory Results Laboratory Results - last 24 hr 10/25/22 10/25/22 10/25/22 14:32 14:32 16:56 WBC 8.52 RBC 4.35 L Hgb 13.1 L Hct 40.1 MCV 92.2 MCH 30.1 MCHC 32.7 RDW Std Deviation 47.3 H RDW Coeff of Emre 13.9 Plt Count 177 MPV 10.0 Immature Gran % (Auto) 0.4 Neut % (Auto) 89.6 Lymph % (Auto) 6.0 Otoe % (Auto) 3.8 Eos % (Auto) 0.0 Baso % (Auto) 0.2 Neut # (Auto) 7.64 H Lymph # (Auto) 0.51 L [place] # (Auto) 0.32 Eos # (Auto) 0.00 Baso # (Auto) 0.02 Immature Gran # (Auto) 0.03 H Sodium 143 Potassium 4.1 Chloride 109 H Carbon Dioxide 26 Anion Gap 8 BUN 26 H Creatinine 1.35 Est Cr Clr Drug Dosing 34.5 Est GFR ( Amer) 53.6 Est GFR (Non-Af Amer) 46.2 BUN/Creatinine Ratio 19.3 Glucose 128 H Calcium 9.3 Total Bilirubin 0.8 Direct Bilirubin 0.2 AST 19 ALT 17 Alkaline Phosphatase 98 Total Protein 7.0 Albumin 4.0 Globulin 3.0 Albumin/Globulin Ratio 1.3 Lipase 35 Urine Color Yellow Urine Appearance Cloudy A Urine pH 6.5 Ur Specific Buhler 1.013 Urine Protein 1+ H Urine Glucose (UA) Negative Urine Ketones Negative Urine Blood 1+ H Urine Nitrite Negative Urine Bilirubin Negative Urine Urobilinogen Negative Ur Leukocyte Esterase 3+ H Urine WBC (Auto) >30 H Urine RBC (Auto) 0-4 U Hyaline Cast (Auto) 1-5 U Epithel Cells (Auto) 0-5 Urine Bacteria (Auto) 2+ H SARS-CoV-2, RNA, NAAT 10/25/22 17:51 WBC RBC Hgb Hct MCV MCH MCHC RDW Std Deviation RDW Coeff of Emre Plt Count MPV Immature Gran % (Auto) Neut % (Auto) Lymph % (Auto) Otoe % (Auto) Eos % (Auto) Baso % (Auto) Neut # (Auto) Lymph # (Auto) Otoe # (Auto) Eos # (Auto) Baso # (Auto) Immature Gran # (Auto) Sodium Potassium Chloride Carbon Dioxide Anion Gap BUN Creatinine Est Cr Clr Drug Dosing Est GFR ( Amer) Est GFR (Non-Af Amer) BUN/Creatinine Ratio Glucose Calcium Total Bilirubin Direct Bilirubin AST ALT Alkaline Phosphatase Total Protein Albumin Globulin Albumin/Globulin Ratio Lipase Urine Color Urine Appearance Urine pH Ur Specific Buhler Urine Protein Urine Glucose (UA) Urine Ketones Urine Blood Urine Nitrite Urine Bilirubin Urine Urobilinogen Ur Leukocyte Esterase Urine WBC (Auto) Urine RBC (Auto) U Hyaline Cast (Auto) U Epithel Cells (Auto) Urine Bacteria (Auto) SARS-CoV-2, RNA, NAAT POSITIVE A* Diagnostic Findings CT abd and pelvis Cardiomegaly with coronary artery calcifications. Trace pericardial effusion. Trace right and small left pleural effusions. 1.0 cm solid nodule of the medial basal segment right lower lobe. Mild bibasilar bronchial wall thickening with atelectasis/scarring. Partially imaged large bulla of the lingula again noted. There are a few ill-defined subcentimeter nodules present within the basal right lower lobe measuring up to 4 mm. No pneumatosis or pneumoperitoneum. Unremarkable spleen and adrenal glands. 3 cm cystic lesion of the pancreatic head previously measured approximately 2 cm. Mild pancreatic ductal prominence. Additional stable 1.5 cm cystic lesion of the pancreatic head on image 122. Cholelithiasis. 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 Bilateral renal cysts are redemonstrated. Treated 3.6 cm mixed attenuating exophytic lesion of the inferior pole right kidney is unchanged. Mild urothelial thickening noted throughout the left renal pelvis and ureter. Dilation of the distal left greater than right ureters. Marked prostamegaly measures up to 7.7 cm. Circumferential urinary bladder wall thickening with a few urinary bladder diverticula. Small fat filled inguinal hernias. Atherosclerosis of the aorta without aneurysm. No lymphadenopathy identified. Large hiatal hernia contains the majority of the stomach and also a portion of the transverse colon. Moderate colonic fecal retention. The appendix is not definitively seen. There is no small bowel obstruction. There is focal narrowing of the sigmoid colon with twisting of the mesentery on image 244 series 3 and upstream colonic distention measuring up to approximately 9 cm. Extensive colonic diverticulosis. Mild generalized body wall edema. Degenerative changes of the spine, pelvis and hips. No acute fracture identified. Mild lumbar levoscoliosis. IMPRESSION: 1. Sigmoid volvulus results in high-grade narrowing of the sigmoid colon with upstream colonic distention. 2. Large hiatal hernia contains the majority of the stomach and a portion of the transverse colon. 3. 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 4. Cholelithiasis. 5. Stable treated exophytic lesion of the right kidney. 6. Marked prostamegaly with evidence of chronic bladder outlet obstruction. 7. Urothelial thickening of the left renal pelvis and ureter suspicious for infection. Correlate with urinalysis. 8. Additional findings as above. Code Status & VTE Plan Code Status Full Code
[2022-10-25] MEDS ORDERED: LIDOCAINE 2% MPF LOCAL 5 ML VIAL INFIL ONE (18:55)
[2022-10-25] MEDS ORDERED: ONDANSETRON INJ 2 MG/ML 2 ML VIAL ONE (18:55)
[2022-10-25] MEDS ORDERED: PROPOFOL IV EMULSION 10 MG/ML 20 ML VIAL IV ONE (18:55)
[2022-10-25] MEDS ORDERED: fentaNYL citrate 100 MCG/2 ML VIAL ONE (18:56)
[2022-10-25] MEDS ORDERED: SUCCINYLCHOLINE CHLORIDE 20 MG/ML 10 ML VIAL IV ONE (18:56)
--- NOTE | 2022-10-25 18:57 | History & Physical Report ---
Date of Service October 25, 2022 Assessment & Plan (1) Volvulus of sigmoid colon: Admission and Anticipated Discharge Date Admission Date: Will attempt colonoscopy and decompression with rectal tube placement. All risks discusses with patient including risk of infection, bleeding, and higher risk of perforation. He undertands and wishes to proceed. IN addition we discusses that colonoscopy does not always work to decompress the volvulus and that even if we are successful there is a high rate of recurrence. If this happens he would require surgical management. Sissy Delcid, Gastroenterology and Hepatology History of Present Illness Chief Complaint: sigmoid volvulus Primary Care Provider: Mali Krause MD 87 y/o M with history of strokes on plavix, CAD, atrial fibrillation, CKD III coming tonight for abdominal pain found to have a sigmoid volvulus on imaging. Planning for colonoscopy this evening for attempted decompression and rectal tube placement. Discussed with patient he is at risk for perforation as well as bleeding given he is on plavix he understands this and wishes to attempt colonoscopy this evening. He states this has never happened before and last colonoscopy was well over 10 years ago. He reports he is extremely distended and his pain is not being helped with morphine. He was found to be Covid + on exam. ER spoke with general surgery and they report they felt endoscopic decompression would be best at this time vs. surgery. Allergies Allergy/AdvReac Type Severity Reaction Status Date / Time Sulfa (Sulfonamide Allergy Intermediate RASH PER Verified 10/25/22 17:52 Antibiotics) [facility] Home Medications Medication Instructions Recorded Confirmed Type clopidogrel 75 mg tablet 75 mg PO QAM 07/09/19 10/25/22 History tamsulosin 0.4 mg capsule 0.4 mg PO QAM #90 caps 07/09/19 10/25/22 History finasteride 5 mg tablet 5 mg PO HS 03/15/21 10/25/22 History montelukast 10 mg tablet 10 mg PO HS 03/15/21 10/25/22 History (Singulair) multivitamin with minerals 1 tab PO QAM 03/15/21 10/25/22 History vit C 250 mg-vit E 90 mg-zinc 40 1 tab PO BID 03/15/21 10/25/22 History mg-copper 1 [id number] capsule (PreserVision AREDS-2) amlodipine 5 mg tablet 5 mg PO DAILY 07/28/21 10/25/22 History atorvastatin 40 mg tablet 40 mg PO QPM 07/28/21 10/25/22 History lisinopril 5 mg tablet 5 mg PO DAILY 07/28/21 10/25/22 History citalopram 10 mg tablet 10 mg PO HS #30 tabs 09/01/21 10/25/22 Rx tiotropium bromide 2.5 2 puff inhalation DAILY 01/24/22 10/25/22 History mcg/actuation mist for inhalation (Spiriva Respimat) cyanocobalamin (vitamin B-12) 1,000 mcg PO DAILY 10/25/22 10/25/22 History 1,000 mcg tablet (Vitamin B-12) mometasone-formoterol HFA 200 2 puff inhalation BID 10/25/22 10/25/22 History mcg-5 mcg/actuation aerosol inhaler (Dulera) omeprazole 20 mg capsule,delayed 20 mg PO DAILY 10/25/22 10/25/22 History release ropinirole 3 mg tablet 3 mg PO HS 10/25/22 10/25/22 History Past Med/Surg History Medical History Anaplasmosis Angina pectoris Atrial fibrillation BPH loc w urin obs/LUTS CKD (chronic kidney disease) stage 3, GFR 30-59 ml/min Elevated PSA Hypertension Ingrown toenail Lesion of nose Surgical History History of cataract surgery History of colonoscopy History of eyelid surgery History of hernia repair History of prostate biopsy History of sinus surgery Family History Brother Prostate cancer Father Prostate cancer Social History Smoking Status: Never smoker Hx Alcohol Use: No Hx Substance Use: No Preferred Language: Yakut Communication Ability: Effective Academic Support Director Required: No Beliefs That Will Affect Care: None marital status: Current Living Situation: Spouse current occupational status: retired Feels Safe at Home: Yes Assistive Devices: Glasses Review of Systems All systems reviewed & are unremarkable except as noted in HPI & below Physical Exam Constitutional: WD/WN, vitals as above Eyes: PERRL, conjunctivae normal, anicteric sclerae Respiratory: normal respiratory effort, lungs clear to auscultation Cardiovascular: RRR, no murmur, no edema Gastrointestinal (Abdomen): Very distended, tender to palpation, hypoactive bowel sounds, firm and tense to palpation, no guarding or peritoneal signs on my exam Psychiatric: A+Ox3, euthymic affect Results & Data ([facility]) Vital Signs (Past 12 Hours) Vital Signs Temp Pulse Pulse Resp BP BP Pulse Ox 10/25/22 17:57 108 H 18 174/93 H 92 10/25/22 14:04 98 H 18 180/97 H 94 10/25/22 15:02 10/25/22 14:05 36.5 C 121 H 19 171/101 H 92 O2 Del Method 10/25/22 17:57 Room Air 10/25/22 14:04 Room Air 10/25/22 15:02 Room Air 10/25/22 14:05 Room Air Code Status & VTE Plan VTE Prophylaxis Plan VTE Prophylaxis will be ordered: Yes
--- NOTE | 2022-10-25 19:21 | Anesthesiology Consultation ---
Date of Service October 25, 2022 Assessment & Plan Chart Review Chart Review: Acceptable Risk for Surgery Consults Requested none History Surgery Operation Date: 10/25/22 18:10 Proposed Procedures p Colonoscopy - Sissy Delcid, Height/Weight Height: 5 ft 7 in Weight: 65.8 kg Allergies Allergy/AdvReac Type Severity Reaction Status Date / Time Sulfa (Sulfonamide Allergy Intermediate RASH PER Verified 10/25/22 17:52 Antibiotics) [facility] Medications Home Medications Medication Instructions Recorded Confirmed Last Taken clopidogrel 75 mg tablet 75 mg PO QAM 07/09/19 10/25/22 10/25/22 tamsulosin 0.4 mg capsule 0.4 mg PO QAM #90 caps 07/09/19 10/25/22 10/24/22 finasteride 5 mg tablet 5 mg PO HS 03/15/21 10/25/22 10/24/22 montelukast 10 mg tablet 10 mg PO HS 03/15/21 10/25/22 10/24/22 (Singulair) multivitamin with minerals 1 tab PO QAM 03/15/21 10/25/22 10/24/22 vit C 250 mg-vit E 90 mg-zinc 40 1 tab PO BID 03/15/21 10/25/22 10/24/22 mg-copper 1 [id number] capsule (PreserVision AREDS-2) amlodipine 5 mg tablet 5 mg PO DAILY 07/28/21 10/25/22 10/24/22 atorvastatin 40 mg tablet 40 mg PO QPM 07/28/21 10/25/22 10/24/22 lisinopril 5 mg tablet 5 mg PO DAILY 07/28/21 10/25/22 10/24/22 citalopram 10 mg tablet 10 mg PO HS #30 tabs 09/01/21 10/25/22 10/24/22 tiotropium bromide 2.5 2 puff inhalation DAILY 01/24/22 10/25/22 10/24/22 mcg/actuation mist for inhalation (Spiriva Respimat) cyanocobalamin (vitamin B-12) 1,000 mcg PO DAILY 10/25/22 10/25/22 10/24/22 1,000 mcg tablet (Vitamin B-12) mometasone-formoterol HFA 200 2 puff inhalation BID 10/25/22 10/25/22 10/24/22 mcg-5 mcg/actuation aerosol inhaler (Dulera) omeprazole 20 mg capsule,delayed 20 mg PO DAILY 10/25/22 10/25/22 10/24/22 release ropinirole 3 mg tablet 3 mg PO HS 10/25/22 10/25/22 10/24/22 NPO Date Last Intake of Fluids: 10/24/22 Date Last Intake of Solids: 10/24/22 Past Medical History Medical History Anaplasmosis Angina pectoris Atrial fibrillation BPH loc w urin obs/LUTS CKD (chronic kidney disease) stage 3, GFR 30-59 ml/min Elevated PSA Hypertension Ingrown toenail Lesion of nose Past Family History Family History Brother Prostate cancer Father Prostate cancer Past Surgical History Surgical History History of cataract surgery History of colonoscopy History of eyelid surgery History of hernia repair History of prostate biopsy History of sinus surgery Social History Smoking Status: Never smoker Hx Alcohol Use: No Hx Substance Use: No substance use type: does not use Physical Exam Vital Signs Last Vital Signs Temp 36.5 C 10/25/22 14:05 Pulse 108 H 10/25/22 17:57 Resp 18 10/25/22 17:57 BP 174/93 H 10/25/22 17:57 Pulse Ox 92 10/25/22 17:57 O2 Del Method 10/25/22 17:57 Testing Laboratory Results 10/25/22 14:32 10/25/22 14:32 Urine Color Yellow 10/25/22 16:56 Urine Appearance Cloudy (Clear) A 10/25/22 16:56 Urine pH 6.5 (4.5-7.5) 10/25/22 16:56 Ur Specific [place] 1.013 (1.000-1.030) 10/25/22 16:56 Urine Protein 1+ (Negative) H 10/25/22 16:56 Urine Glucose (UA) Negative (Negative) 10/25/22 16:56 Urine Ketones Negative (Negative) 10/25/22 16:56 Urine Nitrite Negative (Negative) 10/25/22 16:56 Ur Leukocyte Esterase 3+ (Negative) H 10/25/22 16:56 Urine WBC (Auto) >30 /hpf (0-5) H 10/25/22 16:56 Urine RBC (Auto) 0-4 /hpf (0-4) 10/25/22 16:56 U Hyaline Cast (Auto) 1-5 /lpf (0-5) 10/25/22 16:56 U Epithel Cells (Auto) 0-5 /lpf (0-5) 10/25/22 16:56 Urine Bacteria (Auto) 2+ (Negative) H 10/25/22 16:56
[2022-10-25] MEDS ORDERED: ePHEDrine sulfate 50 MG/ML AMP IV PRN (19:24)
[2022-10-25] MEDS ORDERED: ONDANSETRON INJ 2 MG/ML 2 ML VIAL IV PRN (19:24)
[2022-10-25] MEDS ORDERED: PROMETHAZINE HCL 12.5 MG in SODIUM CHLORIDE 0.9% 50 ML IV PRN (19:24)
[2022-10-25] MEDS ORDERED: ATROPINE SULFATE 0.1 MG/ML 10ML SYR IV PRN (19:24)
[2022-10-25] MEDS ORDERED: fentaNYL citrate 100 MCG/2 ML VIAL IV PRN (19:24)
--- NOTE | 2022-10-25 19:55 | Emergency Department Note ---
Impression & Plan Sigmoid volvulus, Acute UTI, BPH loc w urin obs/LUTS, Lab test positive for detection of COVID-19 virus ED Provider Note NAME: LEANDRA ALBERTO AGE: 87 SEX: M ARRIVES VIA: Walk-In INFORMANT: Patient ED PROVIDER(S): Santos Larson MD CHIEF COMPLAINT: Abdominal pain. PLAN: Disposition: Admit MEDICAL DECISION MAKING: The patient is a pleasant 87-year-old gentleman with a past medical history of hypertension, CKD, COPD, BPH with history of LUTS, history of prostate cancer who presents to the emergency department via walk-in, accompanied by his son for evaluation of abdominal pain and distention that initially began last night an hour or so after eating his typical dinner but when he awoke this morning this had persisted and became more severe where he reports feeling nausea but unable to vomit and feeling constipated but unable to move his bowels. He denies any prior history of similar symptoms. He denies any recent fevers, chills, cough or congestion. He denies any chest pain or shortness of breath. He does report he has a remote history of a left inguinal hernia repair. On arrival the patient is uncomfortable but no acute distress, afebrile with heart in the 120s and blood pressure elevated in the 170s/90s and vital signs otherwise stable. He appears clinically dry. His abdomen is significantly distended and tympanitic. He has generalized discomfort with palpation but no discrete tenderness, rebound or guarding. WBC and platelets within normal limits. H/H similar to prior values. Chemistry without metabolic acidosis. BUN 26, consistent with the patient's clinically dry appearance. LFTs unremarkable. UA with possible infection with WBCs, 2+ bacteria and leuk esterase albeit with negative nitrites. However, no epithelial cells are noted. CT of the abdomen pelvis was performed and demonstrates sigmoid volvulus associated high-grade narrowing of the sigmoid colon with upstream colonic distention. Note is made of a large hiatal hernia with majority of stomach and a portion of the transverse colon. There is evidence of chronic bladder outlet obstruction uroepithelial thickening of the left renal pelvis that is nonspeci fic but raises suspicion for infection given urine analysis consistent with UTI. The patient was ordered for ceftriaxone for UTI. Case was discussed with [facility] general surgery on-call, Dr. Ha and given description of nontoxic-appearing patient with vital signs improving with hydration appropriate approach for treatment would be first with GI consultation for endoscopic detorsion. If patient were to become toxic and more emergent surgical intervention would be considered. Appreciate recommendations. This was discussed with gastroenterology on-call, Dr. Delcid who reviewed the patient's images and decision was made to take to the patient to the OR for endoscopic detorsion. I did review the plan with the patient and son at the bedside. They were in agreement. Of note, the patient was noted to have urinated at least twice prior to his CT which did demonstrate somewhat distended bladder. Thus, we agreed to proceed with a Hardin catheter which would be required for the OR in any event. It was noted that the patient did have 400 cc of urine which suggests a mild degree of retention in the setting of his history of LUTS. Patient did feel some improvement in symptoms and heart rate was improving with IV fluid hydration, famotidine, Zofran. Low-dose morphine given for additional analgesia. Case was discussed with Aga Sandhu [facility], [facility] will evaluate the patient for admission. Of note, COVID-19 RNA, AZUL test performed as screening test was positive for COVID-19 however the patient denies any new respiratory illness and so unclear significance at this time. Further management per admitting team. Triage Nursing notes reviewed and agree them. Prior medical records reviewed Vital Signs: reviewed Differential diagnosis: Appendicitis, testicular torsion, infections, diverticulitis, UTI, obstruction, mesenteric ischemia, aortic pathology, inflammatory bowel disease, renal colic, PUD, pancreatitis, biliary pathology, hernia, volvulus, constipation, as well as other pathologies. ER treatment provided: See below. Diagnostics interpreted by me: ECG: Sinus rhythm with first-degree AV block, PACs, 90 bpm, no overt ST elevation or depression, QTC 439, QRS 92. Cardiac Monitoring: An order for continuous cardiac monitoring was placed and demonstrated Sinus rhythm with first-degree AV block, PACs, 90 bpm, no overt ST elevation or depression, QTC 439, QRS 92. Laboratory studies: See below Imaging studies: See below Consultation(s): General surgery on-call, Dr. Ha. GI on-call, Dr. Radha Sandhu [facility], with Dr. Wright [facility] hospitalist HPI: The patient is a pleasant 87-year-old gentleman with a past medical history of hypertension, CKD, COPD, BPH with history of LUTS, history of prostate cancer who presents to the emergency department via walk-in, accompanied by his son for evaluation of abdominal pain and distention that initially began last night an hour or so after eating his typical dinner but when he awoke this morning this had persisted and became more severe where he reports feeling nausea but unable to vomit and feeling constipated but unable to move his bowels. He denies any prior history of similar symptoms. He denies any recent fevers, chills, cough or congestion. He denies any chest pain or shortness of breath. He does report he has a remote history of a left inguinal hernia repair. ROS: See above HPI for pertinent positives & negatives. A total of 10 systems reviewed and were otherwise negative. VITALS:See Below PHYSICAL EXAMINATION: GENERAL: Awake, alert, fatigued-appearing, in no distress HENT: Normocephalic, atraumatic. Oropharynx with dry mucous membranes and otherwise unremarkable. EYES: Normal conjunctiva. Sclera non-icteric. NECK: Supple. No nuchal rigidity. FROM. No JVD. RESPIRATORY: Clear to auscultation. CARDIAC: Regular rate, normal rhythm. Extremities warm and well perfused. Pulses equal. ABDOMEN: Significantly distended and tympanitic. He has generalized discomfort with palpation but no discrete tenderness, rebound or guarding. RECTAL: Deferred. MUSCULOSKELETAL: Chest examination reveals no tenderness. The back is symmetrical on inspection without obvious abnormality. There is no CVA tenderness to palpation. No joint edema. LOWER EXTREMITIES: Calves are equal size bilaterally and non-tender. No edema. No discoloration. NEURO: Normal sensorium. No sensory or motor deficits noted. SKIN: No rash or jaundice noted. ED COURSE: Critical Care: I have personally spent greater than 35 minutes of critical care time in the dir ect management of this patient. This includes bedside care, interpretation of diagnostic studies, and testing, discussion with consultants, patient, and family members, and other required patient management activities. This 35 minutes is in excess of all separately billable procedures. Santos Larson MD Past Med/Surg History Medical History Anaplasmosis Angina pectoris Atrial fibrillation BPH loc w urin obs/LUTS CKD (chronic kidney disease) stage 3, GFR 30-59 ml/min Elevated PSA Hypertension Ingrown toenail Lesion of nose Surgical History History of cataract surgery History of colonoscopy History of eyelid surgery History of hernia repair History of prostate biopsy History of sinus surgery Family History Brother Prostate cancer Father Prostate cancer Social History Smoking Status: Never smoker Hx Alcohol Use: No Hx Substance Use: No Preferred Language: Kiswahili Communication Ability: Effective Gas Meter Installer Required: No Beliefs That Will Affect Care: None marital status: Current Living Situation: Spouse current occupational status: retired Feels Safe at Home: Yes Assistive Devices: Glasses Allergies Allergies Allergy/AdvReac Type Severity Reaction Status Date / Time Sulfa (Sulfonamide Allergy Intermediate RASH PER Verified 10/25/22 17:52 Antibiotics) [facility] Home Meds Home Medications Medication Instructions Recorded Confirmed clopidogrel 75 mg tablet 75 mg PO QAM 07/09/19 10/25/22 tamsulosin 0.4 mg capsule 0.4 mg PO QAM #90 caps 07/09/19 10/25/22 finasteride 5 mg tablet 5 mg PO HS 03/15/21 10/25/22 montelukast 10 mg tablet 10 mg PO HS 03/15/21 10/25/22 (Singulair) multivitamin with minerals 1 tab PO QAM 03/15/21 10/25/22 vit C 250 mg-vit E 90 mg-zinc 40 1 tab PO BID 03/15/21 10/25/22 mg-copper 1 [id number] capsule (PreserVision AREDS-2) amlodipine 5 mg tablet 5 mg PO DAILY 07/28/21 10/25/22 atorvastatin 40 mg tablet 40 mg PO QPM 07/28/21 10/25/22 lisinopril 5 mg tablet 5 mg PO DAILY 07/28/21 10/25/22 tiotropium bromide 2.5 2 puff inhalation DAILY 01/24/22 10/25/22 mcg/actuation mist for inhalation (Spiriva Respimat) cyanocobalamin (vitamin B-12) 1,000 mcg PO DAILY 10/25/22 10/25/22 1,000 mcg tablet (Vitamin B-12) mometasone-formoterol HFA 200 2 puff inhalation BID 10/25/22 10/25/22 mcg-5 mcg/actuation aerosol inhaler (Dulera) omeprazole 20 mg capsule,delayed 20 mg PO DAILY 10/25/22 10/25/22 release ropinirole 3 mg tablet 3 mg PO HS 10/25/22 10/25/22 Previous Rx's Medication Instructions Recorded citalopram 10 mg tablet 10 mg PO HS #30 tabs 09/01/21 Results & Data (ED) Vital Signs Vital Signs - 24 hr 10/25/22 14:05 10/25/22 15:02 10/25/22 14:04 Temperature 36.5 C Temperature Source Temporal Artery Scan Pulse Rate 121 H Pulse Rate [Apical] 98 H Respiratory Rate 19 18 Respiratory Effort / Characteristics Non-Labored Non-Labored Spontaneous Respiratory Depth Normal Respiratory Pattern Regular Blood Pressure 171/101 H Blood Pressure [Right Arm] 180/97 H Blood Pressure Mean 124 Blood Pressure Mean [Right Arm] 124 Blood Pressure Position [Right Arm] Sitting Pulse Oximetry 92 94 Oxygen Delivery Method Room Air Room Air Room Air Sepsis Recent Fever Within 48 Hours No Sepsis New/Unexplained Change in Mental Status N/A Sepsis Action Taken by Nursing No Action Required 10/25/22 17:57 Temperature Temperature Source Pulse Rate Pulse Rate [Apical] 108 H Respiratory Rate 18 Respiratory Effort / Characteristics Non-Labored Spontaneous Respiratory Depth Normal Respiratory Pattern Regular Blood Pressure Blood Pressure [Right Arm] 174/93 H Blood Pressure Mean Blood Pressure Mean [Right Arm] 120 Blood Pressure Position [Right Arm] Sitting Pulse Oximetry 92 Oxygen Delivery Method Room Air Sepsis Recent Fever Within 48 Hours Sepsis New/Unexplained Change in Mental Status Sepsis Action Taken by Nursing Laboratory Data 10/25/22 14:32 10/25/22 14:32 Lab Results 10/25/22 10/25/22 10/25/22 Range/Units 14:32 14:32 16:56 WBC 8.52 (4.8-10.8) K/ul RBC 4.35 L (4.63-6.08) M/uL Hgb 13.1 L (14.0-18.0) g/dl Hct 40.1 (40.1-51.0) % MCV 92.2 (80.0-100.0) fL MCH 30.1 (25.0-34.0) pg MCHC 32.7 (32.0-36.0) g/dL RDW Std Deviation 47.3 H (36.4-46.3) fL RDW Coeff of Emre 13.9 (11.5-14.5) % Plt Count 177 (130-400) K/uL MPV 10.0 (9.4-12.4) fL Immature Gran % (Auto) 0.4 % Neut % (Auto) 89.6 % Lymph % (Auto) 6.0 % Sabine % (Auto) 3.8 % Eos % (Auto) 0.0 % Baso % (Auto) 0.2 % Neut # (Auto) 7.64 H (1.4-6.5) K/uL Lymph # (Auto) 0.51 L (1.2-3.4) K/uL Sabine # (Auto) 0.32 (0.24-0.82) K/uL Eos # (Auto) 0.00 (0-0.50) K/uL Baso # (Auto) 0.02 (0-0.2) K/uL Immature Gran # (Auto) 0.03 H (0.00-0.02) K/uL Sodium 143 (136-145) mmol/L Potassium 4.1 (3.5-5.1) mmol/L Chloride 109 H (98-107) mmol/L Carbon Dioxide 26 (21-32) mmol/L Anion Gap 8 (3-11) BUN 26 H (6-23) mg/dl Creatinine 1.35 (0.6-1.4) mg/dl Est Cr Clr Drug Dosing 34.5 ml/min Est GFR ( Amer) 53.6 ml/min Est GFR (Non-Af Amer) 46.2 ml/min BUN/Creatinine Ratio 19.3 (10-20) Glucose 128 H (70-99(Fasting)) mg/dl Calcium 9.3 (8.5-10.1) mg/dl Total Bilirubin 0.8 (0.2-1.0) mg/dl Direct Bilirubin 0.2 (0-0.2) mg/dl AST 19 (13-39) U/L ALT 17 (7-52) U/L Alkaline Phosphatase 98 (34-104) U/L Total Protein 7.0 (6.0-8.3) gm/dl Albumin 4.0 (3.4-5.0) gm/dl Globulin 3.0 (2.5-4.0) gm/dl Albumin/Globulin Ratio 1.3 (0.9-2) Lipase 35 (11-82) U/L Urine Color Yellow Urine Appearance Cloudy A (Clear) Urine pH 6.5 (4.5-7.5) Ur Specific [place] 1.013 (1.000-1.030) Urine Protein 1+ H (Negative) Urine Glucose (UA) Negative (Negative) Urine Ketones Negative (Negative) Urine Blood 1+ H (Negative) Urine Nitrite Negative (Negative) Urine Bilirubin Negative (Negative) Urine Urobilinogen Negative (Negative) Ur Leukocyte Esterase 3+ H (Negative) Urine WBC (Auto) >30 H (0-5) /hpf Urine RBC (Auto) 0-4 (0-4) /hpf U Hyaline Cast (Auto) 1-5 (0-5) /lpf U Epithel Cells (Auto) 0-5 (0-5) /lpf Urine Bacteria (Auto) 2+ H (Negative) SARS-CoV-2, RNA, NAAT (NEGATIVE) 10/25/22 Range/Units 17:51 WBC (4.8-10.8) K/ul RBC (4.63-6.08) M/uL Hgb (14.0-18.0) g/dl Hct (40.1-51.0) % MCV (80.0-100.0) fL MCH (25.0-34.0) pg MCHC (32.0-36.0) g/dL RDW Std Deviation (36.4-46.3) fL RDW Coeff of Emre (11.5-14.5) % Plt Count (130-400) K/uL MPV (9.4-12.4) fL Immature Gran % (Auto) % Neut % (Auto) % Lymph % (Auto) % Sabine % (Auto) % Eos % (Auto) % Baso % (Auto) % Neut # (Auto) (1.4-6.5) K/uL Lymph # (Auto) (1.2-3.4) K/uL Sabine # (Auto) (0.24-0.82) K/uL Eos # (Auto) (0-0.50) K/uL Baso # (Auto) (0-0.2) K/uL Immature Gran # (Auto) (0.00-0.02) K/uL Sodium (136-145) mmol/L Potassium (3.5-5.1) mmol/L Chloride (98-107) mmol/L Carbon Dioxide (21-32) mmol/L Anion Gap (3-11) BUN (6-23) mg/dl Creatinine (0.6-1.4) mg/dl Est Cr Clr Drug Dosing ml/min Est GFR ( Amer) ml/min Est GFR (Non-Af Amer) ml/min BUN/Creatinine Ratio (10-20) Glucose (70-99(Fasting)) mg/dl Calcium (8.5-10.1) mg/dl Total Bilirubin (0.2-1.0) mg/dl Direct Bilirubin (0-0.2) mg/dl AST (13-39) U/L ALT (7-52) U/L Alkaline Phosphatase (34-104) U/L Total Protein (6.0-8.3) gm/dl Albumin (3.4-5.0) gm/dl Globulin (2.5-4.0) gm/dl Albumin/Globulin Ratio (0.9-2) Lipase (11-82) U/L Urine Color Urine Appearance (Clear) Urine pH (4.5-7.5) Ur Specific [place] (1.000-1.030) Urine Protein (Negative) Urine Glucose (UA) (Negative) Urine Ketones (Negative) Urine Blood (Negative) Urine Nitrite (Negative) Urine Bilirubin (Negative) Urine Urobilinogen (Negative) Ur Leukocyte Esterase (Negative) Urine WBC (Auto) (0-5) /hpf Urine RBC (Auto) (0-4) /hpf U Hyaline Cast (Auto) (0-5) /lpf U Epithel Cells (Auto) (0-5) /lpf Urine Bacteria (Auto) (Negative) SARS-CoV-2, RNA, NAAT POSITIVE A* (NEGATIVE) Administered Medications Discontinued Medications Sodium Chloride (Nss) 500 mls @ 999 mls/hr IV .Q31M ONE Stop: 10/25/22 14:43 Last Infusion: 10/25/22 16:07 Dose: 0 mls/hr Documented By: Admin: 10/25/22 15:27 Dose: 999 mls/hr Documented By: ROLLY Famotidine (Pepcid 20mg Iv Push) 20 mg in 5 mls @ 2.5 mls/min IV NOW STA Stop: 10/25/22 14:14 Last Admin: 10/25/22 15:27 Dose: 2.5 mls/min Documented By: ROLLY Sodium Chloride (Nss) 500 mls @ 999 mls/hr IV .Q31M ONE Stop: 10/25/22 18:06 Last Admin: 10/25/22 18:20 Dose: 999 mls/hr Documented By: ROLLY Ceftriaxone Sodium (Rocephin) 2,000 mg in 70 mls @ 140 mls/hr IV NOW STA Stop: 10/25/22 18:10 Last Admin: 10/25/22 18:20 Dose: 140 mls/hr Documented By: ROLLY Ioversol (Optiray 350 100ml) 89 ml IV ONCE ONE Stop: 10/25/22 16:15 Last Admin: 10/25/22 16:14 Dose: 89 ml Documented By: JULIEN Morphine Sulfate (Morphine Sulfate 2 Mg/Ml Carp) 1 mg IV NOW STA Stop: 10/25/22 17:37 Last Admin: 10/25/22 18:20 Dose: 1 mg Documented By: ROLLY Ondansetron HCl (Ondansetron Inj 2 Mg/Ml 2 Ml Vial) 4 mg IV NOW STA Stop: 10/25/22 14:14 Last Admin: 10/25/22 15:32 Dose: Not Given Documented By: ROLLY Imaging Data Radiologist's Impression: Abdomen/Pelvis CT 10/25/22 15:[address] WITH IV CONTRAST CT DOSE: 286.24 mGy.cm HISTORY: Acute generalized abdominal pain with nausea abd pain,nausea TECHNIQUE: Multiaxial CT images of the abdomen and pelvis were performed following the IV administration of 89 cc of Optiray, A dose lowering technique was utilized adhering to the principles of ALARA. COMPARISON STUDY: CT abdomen 04/20/2018 FINDINGS: Cardiomegaly with coronary artery calcifications. Trace pericardial effusion. Trace right and small left pleural effusions. 1.0 cm solid nodule of the medial basal segment right lower lobe. Mild bibasilar bronchial wall thickening with atelectasis/scarring. Partially imaged large bulla of the lingula again noted. There are a few ill-defined subcentimeter nodules present within the basal right lower lobe measuring up to 4 mm. No pneumatosis or pneumoperitoneum. Unremarkable spleen and adrenal glands. 3 cm cystic lesion of the pancreatic head previously measured approximately 2 cm. Mild pancreatic ductal prominence. Additional stable 1.5 cm cystic lesion of the pancreatic head on image 122. Cholelithiasis. 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 Bilateral renal cysts are redemonstrated. Treated 3.6 cm mixed attenuating exophytic lesion of the inferior pole right kidney is unchanged. Mild urothelial thickening noted throughout the left renal pelvis and ureter. Dilation of the distal left greater than right ureters. Marked prostamegaly measures up to 7.7 cm. Circumferential urinary bladder wall thickening with a few urinary bladder diverticula. Small fat filled inguinal hernias. Atherosclerosis of the aorta without aneurysm. No lymphadenopathy identified. Large hiatal hernia contains the majority of the stomach and also a portion of the transverse colon. Moderate colonic fecal retention. The appendix is not definitively seen. There is no small bowel obstruction. There is focal narrowing of the sigmoid colon with twisting of the mesentery on image 244 series 3 and upstream colonic distention measuring up to approximately 9 cm. Extensive colonic diverticulosis. Mild generalized body wall edema. Degenerative changes of the spine, pelvis and hips. No acute fracture identified. Mild lumbar levos coliosis. IMPRESSION: 1. Sigmoid volvulus results in high-grade narrowing of the sigmoid colon with upstream colonic distention. 2. Large hiatal hernia contains the majority of the stomach and a portion of the transverse colon. 3. 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 4. Cholelithiasis. 5. Stable treated exophytic lesion of the right kidney. 6. Marked prostamegaly with evidence of chronic bladder outlet obstruction. 7. Urothelial thickening of the left renal pelvis and ureter suspicious for infection. Correlate with urinalysis. 8. Additional findings as above. ACT 112: Negative or not required by law. The above report was generated using voice recognition software. It may contain grammatical, syntax or spelling errors. Electronically signed by: Jaxson Patel M.D. 10/25/2022 4:37 PM Discharge Plan Visit Data Chief Complaint: Abdominal Pain Stated Complaint: ABDOMINAL PAIN, HX HIATAL HERNIA ED Provider: Santos Larson Discharge Problem: Sigmoid volvulus, Acute UTI, BPH loc w urin obs/LUTS, Lab test positive for detection of COVID-19 virus Discharge Instructions Interventions: ED Discharge Assessment Last Done: 10/25/22 19:09
--- NOTE | 2022-10-25 20:30 | GI REPORT ---
Patient Name: Sj Rousseau Procedure Date: 10/25/2022 6:52 PM Date of : 1935 Admit Type: Emergency Department Age: 87 Gender: Male Attending MD: Sissy Delcid DO, Procedure: Colonoscopy Providers: Sissy Delcid DO Referring MD: Santos Larson M.d. Indications: For therapy of volvulus Patient Profile: This is an 87 year old male. Refer to note in patient chart for documentation of history and physical. Medicines: General Anesthesia Complications: No immediate complications. Estimated Blood Loss: Estimated blood loss: none. Procedure: Pre-Anesthesia Assessment: - Prior to the procedure, a History and Physical was performed, and patient medications and allergies were reviewed. The risks and benefits of the procedure and the sedation options and risks were discussed with the patient. All questions were answered and informed consent was obtained. Patient identification and proposed procedure were verified by the physician, the nurse and the deck mate in the procedure room. Mental Status Examination: alert and oriented. Airway Examination: Mallampati Class II (the uvula but not tonsillar pillars visualized). Respiratory Examination: clear to auscultation. CV Examination: RRR, no murmurs, no S3 or S4. Prophylactic Antibiotics: The patient does not require prophylactic antibiotics. Prior Anticoagulants: The patient has taken Plavix (clopidogrel), last dose was day of procedure. ASA Grade Assessment: IV - A patient with severe systemic disease that is a constant threat to life. After reviewing the risks and benefits, the patient was deemed in satisfactory condition to undergo the procedure. The anesthesia plan was to use general anesthesia. Immediately prior to administration of medications, the patient was re-assessed for adequacy to receive sedatives. The physical status of the patient was re-assessed after the procedure. After I obtained informed consent, the scope was passed under direct vision. Throughout the procedure, the patient's blood pressure, pulse, and oxygen saturations were monitored continuously. The Colonoscope was introduced through the anus with the intention of advancing to the cecum. The scope was advanced to the transverse colon before the procedure was aborted. Medications were given. The colonoscopy was technically difficult and complex due to poor endoscopic visualization and a tortuous colon. The patient tolerated the procedure well. Findings: The perianal and digital rectal examinations were normal. A volvulus with viable appearing mucosa was found in the sigmoid colon. Decompression of the volvulus endoscopically was attempted multiple times but was unsuccessful. Of note, CT scan shows that a portion of his transverse colon is contained in a large hital hernia. Impression: - Sigmoid volvulus seen. Despite multiple attempts at decompression endoscopically it was unsuccessful. - Solid stool and multiple diverticuli seen throughout. The view was completely obscured due to stool and was difficult to navigate. - No specimens collected. Recommendation: - Return patient to [facility] for ongoing care. - NPO. - Spoke with general surgery here (Dr. Ha) who recommended patient is transferred to a tertiary care center for surgery as he is high risk for surgery here given his co-morbidities. - Hold plavix. - Recommend he is urgently transferred to a [facility] care center for surgical evaluation as there is high risk of bowel ischemia with ongoing volvulus Sissy Delcid, DO 10/25/2022 8:30:16 PM Note Initiated On: 10/25/2022 6:52 PM Number of Addenda: 0 I attest to the content of the Intraoperative Record and orders documented therein, exceptions below {[id number]}
--- NOTE | 2022-10-25 20:34 | Communication Note ---
Date of Service: October 25, 2022 Multiple attempts at endoscopic decompression unsuccessful. I spoke with general surgery afternoon nanny (Dr. Ha) who recommended the patient be transferred to tertiary care center for surgical evaluation as he is high risk with his co- morbidities and current plavix use. I spoke with the physics faculty member, Dr. Lopez, regarding these recommendations who will arrange transfer to tertiary care center. Sissy Delcid, Gastroenterology and Hepatology
--- NOTE | 2022-10-25 20:50 | Anesthesiology Progress Note ---
Date of Service October 25, 2022 Anesthesia Post Procedure Vital Signs Vital Signs: Temp Pulse Pulse Resp BP BP Pulse Ox 10/25/22 20:25 90 24 145/73 H 96 10/25/22 20:35 36.7 C 89 19 129/77 94 10/25/22 20:15 93 H 21 148/76 H 93 10/25/22 20:09 36.9 C 96 H 24 137/81 97 10/25/22 17:57 108 H 18 174/93 H 92 10/25/22 14:04 98 H 18 180/97 H 94 10/25/22 15:02 10/25/22 14:05 36.5 C 121 H 19 171/101 H 92 O2 Del Method O2 Flow Rate 10/25/22 20:25 Oxymask 2 10/25/22 20:35 Oxymask 2 10/25/22 20:15 Oxymask 2 10/25/22 20:09 Oxymask 7 10/25/22 17:57 Room Air 10/25/22 14:04 Room Air 10/25/22 15:02 Room Air 10/25/22 14:05 Room Air Pain Intensity Abdomen: Pain Intensity: 4 Transfer of Care Handoff Completed per policy Notes Mental Status: alert / awake / arousable Patient Amnestic to Procedure: Yes Nausea / Vomiting: adequately controlled Pain: adequately controlled Airway Patency, RR, SpO2: stable & adequate BP & HR: stable & adequate Hydration State: stable & adequate Anesthetic Complications: no major complications apparent Notes: medical team planning transport to [facility] for definitive surgical care.
[2022-10-25] MEDS ORDERED: MoRPHine SULFATE 2 MG/ML CARP IV PRN (21:04)
--- NOTE | 2022-10-25 21:06 | Surgery Consultation ---
Date of Consultation October 25, 2022 Assessment & Plan (1) Sigmoid volvulus: The patient is noted to have a sigmoid volvulus unable to be successfully decompressed endoscopically. I discussed case with my attending physician Dr. Ha and the following was recommended: Due to the patient's numerous medical comorbidities including advanced age, hiatal hernia with transverse colon in the chest, use of Plavix, history of stroke, and calcifications noted on CT scan it is felt the patient would best be served by transfer to a tertiary care center for surgical intervention Case was discussed with the on-call hospitalist who has arranged transfer to [facility] in [place], [place] At the present time the patient is noted to be normotensive without tachycardia. He is not in respiratory distress and is noted to be afebrile. He does not exhibit leukocytosis or evidence of acute kidney injury at this time. The transferring hospitalist noted that after discussion with the surgeon attempt to be made to transfer patient this evening or if not first thing in the morning of 10/26/2022 We will continue to follow and be available should any emergencies arise prior to transfer Supervising Physician Co-Signing Physician Notes Disucssed with Jose Francisco Richards, phone banker GI and ED. 87 y/o male with mult medical problems and sigmoid volvulus. Non toxic, endoscopic decompression attempted but unsuccessful. Patient is stable and given medical history and large hiatal hernia, would recommend transfer to tertiary facility. History of Present Illness Reason for Consultation: Sigmoid volvulus Attending Physician: Sissy Delcid, DO History of Present Illness This is an 87-year-old male who presented to [facility] emergency department secondary to some abdominal pain. Patient notes that on 10/24/2022 in the evening he developed some generalized abdominal pain. He did report nausea but did not have any emesis. He also felt as though his abdomen was more distended and bloated. He said he did have some bowel movements but it was mostly liquid/diarrhea. He specifically denied any bright blood per rectum or melanotic appearing stools. He denies any fevers, shakes, or chills. He denies any chest pain. I question the patient on prior abdominal surgeries and he said he did have a laparoscopic cryoablation of his right kidney performed by Dr. Mac Rosado. It is also noteworthy to mention that the patient takes Plavix and he did take his most recent dose on 10/25/2022. Since arrival to the [facility] emergency department the patient had labs and imaging which I independent reviewed. A CT scan of the abdomen pelvis showed findings concerning for sigmoid volvulus resulting in a high-grade narrowing of the sigmoid colon with upstream colonic distention. There is also a large hiatal hernia noted that contained a large portion of the stomach as well as a portion of the transverse colon. There is no evidence of small bowel obstruction noted on the study. Labs included a CBC were white blood cell count and hematocrit were normal. Hemoglobin was noted to be 13.1. Platelet count was within the normal range. Chemistry profile showed sodium, potassium, and creatinine were normal. BUN had a slight elevation at 23. There is no elevation of LFTs or lipase. Urinalysis did show greater than 30 white blood cells per high-power field along with 2+ bacteria and 3+ leukocyte Estrace. This specimen was negative for nitrites. The patient was noted to be positive for COVID-19. Concerning the patient's COVID-19 diagnosis the patient currently denies any cough or shortness of breath. Due to the findings of sigmoid volvulus the patient underwent an attempted endoscopic decompression. This was discussed with the performing bedspread inspector. It was noted the patient did have multiple attempts made to decompress the patient's volvulus endoscopically but this was unsuccessful. The mucosa of the sigmoid colon was noted to be viable without signs of overt is chemia. I was able to visit with the patient following his colonoscopy. At the time of my interview he was resting comfortably in bed. He was in no distress and was not complaining of any abdominal pain. He was also not complaining of any nausea or vomiting. Allergies Allergy/AdvReac Type Severity Reaction Status Date / Time Sulfa (Sulfonamide Allergy Intermediate RASH PER Verified 10/25/22 17:52 Antibiotics) [facility] [place] Medications Medication Instructions Recorded Confirmed Type clopidogrel 75 mg tablet 75 mg PO QAM 07/09/19 10/25/22 History tamsulosin 0.4 mg capsule 0.4 mg PO QAM #90 caps 07/09/19 10/25/22 History finasteride 5 mg tablet 5 mg PO HS 03/15/21 10/25/22 History montelukast 10 mg tablet 10 mg PO HS 03/15/21 10/25/22 History (Singulair) multivitamin with minerals 1 tab PO QAM 03/15/21 10/25/22 History vit C 250 mg-vit E 90 mg-zinc 40 1 tab PO BID 03/15/21 10/25/22 History mg-copper 1 [id number] capsule (PreserVision AREDS-2) amlodipine 5 mg tablet 5 mg PO DAILY 07/28/21 10/25/22 History atorvastatin 40 mg tablet 40 mg PO QPM 07/28/21 10/25/22 History lisinopril 5 mg tablet 5 mg PO DAILY 07/28/21 10/25/22 History citalopram 10 mg tablet 10 mg PO HS #30 tabs 09/01/21 10/25/22 Rx tiotropium bromide 2.5 2 puff inhalation DAILY 01/24/22 10/25/22 History mcg/actuation mist for inhalation (Spiriva Respimat) cyanocobalamin (vitamin B-12) 1,000 mcg PO DAILY 10/25/22 10/25/22 History 1,000 mcg tablet (Vitamin B-12) mometasone-formoterol HFA 200 2 puff inhalation BID 10/25/22 10/25/22 History mcg-5 mcg/actuation aerosol inhaler (Dulera) omeprazole 20 mg capsule,delayed 20 mg PO DAILY 10/25/22 10/25/22 History release ropinirole 3 mg tablet 3 mg PO HS 10/25/22 10/25/22 History Patient History Medical History Anaplasmosis Angina pectoris Atrial fibrillation BPH loc w urin obs/LUTS CKD (chronic kidney disease) stage 3, GFR 30-59 ml/min Elevated PSA Hypertension Ingrown toenail Lesion of nose Surgical History History of cataract surgery History of colonoscopy History of eyelid surgery History of hernia repair History of prostate biopsy History of sinus surgery Family History Brother Prostate cancer Father Prostate cancer Social History Smoking Status: Never smoker Second Hand Exposure: No; Do You Dip or Chew Tobacco: No; Tobacco Cessation Education Requested by Patient: No Hx Alcohol Use: No Hx Substance Use: No Preferred Language: Occitan Communication Ability: Effective Audiovisual Production Specialist Required: No Beliefs That Will Affect Care: None marital status: Current Living Situation: Spouse current occupational status: retired Other Information That Helps Us Care for You: No Feels Safe at Home: Yes Safety Concerns: Feels Safe At This Time Assistive Devices: Denture - Upper, Denture - Lower, Glasses and Hearing Aid - Bilateral Review of Systems Constitutional: no fever and no chills Eyes: no eye pain Ear, Nose, Mouth, Throat: no ear pain Respiratory: no cough and no dyspnea Cardiovascular: no chest pain Gastrointestinal: + abdominal pain, + nausea and + diarrhea/loose stools; no vomiting Genitourinary: no dysuria Musculoskeletal: no back pain Integumentary: no rash Neurologic: no localized weakness Physical Exam Constitutional: well developed and well nourished; no acute distress Eyes: no conjunctival abnormality ENMT: Ears: no hearing impairment and no external ear abnormality Mouth: no oropharynx abnormality Neck: trachea midline Respiratory: normal respiratory effort; no respiratory distress and no labored breathing Cardiovascular: Rate/Rhythm: regular rate and regular rhythm Gastrointestinal (Abdomen): Moderate distention of the abdomen is noted with hypoactive bowel sounds. No pain is noted with palpation and there is no rebound tenderness or guarding. The abdomen is tympanic to percussion. Musculoskeletal: No calf tenderness Skin: no rashes Neurologic: moves all extremities Psychiatric: A+Ox3, euthymic affect Results & Data ([facility]) Vital Signs (Past 12 Hours) Vital Signs Temp Pulse Pulse Resp BP BP Pulse Ox 10/25/22 20:25 90 24 145/73 H 96 10/25/22 20:45 90 24 141/72 H 94 10/25/22 20:35 36.7 C 89 19 129/77 94 10/25/22 20:15 93 H 21 148/76 H 93 10/25/22 20:09 36.9 C 96 H 24 137/81 97 10/25/22 17:57 108 H 18 174/93 H 92 10/25/22 14:04 98 H 18 180/97 H 94 10/25/22 15:02 10/25/22 14:05 36.5 C 121 H 19 171/101 H 92 O2 Del Method O2 Flow Rate 10/25/22 20:25 Oxymask 2 10/25/22 20:45 Oxymask 2 10/25/22 20:35 Oxymask 2 10/25/22 20:15 Oxymask 2 10/25/22 20:09 Oxymask 7 10/25/22 17:57 Room Air 10/25/22 14:04 Room Air 10/25/22 15:02 Room Air 10/25/22 14:05 Room Air PG Care Time/CCT Total # of Minutes Spent Total Time Spent with Patient: Total time spent is greater than 50% in coordination of care (as documented) at patient's floor/unit and/or counseling patient: Coding Level of Care Code 55683 INT INP/OBS CARE 75MIN Diagnoses Sigmoid volvulus K56.2
[2022-10-25] MEDS: NORMOSOL-R 1,000 ML IV SCH (21:30)
--- NOTE | 2022-10-25 22:43 | Discharge Summary ---
Date of Service October 25, 2022 Admission HPI Per Admitting Provider 87-year-old man with history of hypertension, asthma, restless leg syndrome, CKD 3, reported history of CVA 3 years ago who presents with abdominal distention that worsened the past 24 hours. Patient reports that he usually has some swelling around his umbilicus for some time. However, since yesterday night swelling has gotten worse. This is associated with pain. Also reports nausea but no vomiting. Last bowel movement was 2 days ago. Last time he remember passing flatus was yesterday. Reports chronic cough unchanged, chronic exertional dyspnea and intermittent congestion since after stroke some years ago Denied any fevers, chills Denied palpitation, chest pain, shortness of breath at rest. Denied any headache, dizziness Reports some hesitancy that started a few days ago. Denied dysuria, freq, hematuria, incontinence Family history notable for mother from Alzheimer's, sister had a brain tumor. 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 Patient denied alcohol use, cigarette smoking or illicit drug use. Admission Exam Per Admitting Provider WD/WN, vitals as above Eyes: PERRL, conjunctivae normal, anicteric sclerae Respiratory: normal respiratory effort, lungs clear to auscultation Cardiovascular: RRR, no murmur, no edema Gastrointestinal (Abdomen): Very distended, tender to palpation, hypoactive bowel sounds, firm and tense to palpation, no guarding or peritoneal signs on my exam Psychiatric: A+Ox3, euthymic affect Principal Diagnosis Sigmoid Volvulus Discharge Data Allergies Allergy/AdvReac Type Severity Reaction Status Date / Time Sulfa (Sulfonamide Allergy Intermediate RASH PER Verified 10/25/22 17:52 Antibiotics) [facility] Consultations 10/25/22 18:11 Consult Gastroenterology Stat ED Decision to Admit Stat Procedures Performed Operation Date: 10/25/22 18:10 Actual Procedures p Colonoscopy(Not Applicable) - Sissy Delcid, Ordered Studies 10/25/22 15:17 CT abd pelvis IV con only Stat Hospital Course (1) Sigmoid volvulus: Plan 87M presented with abdominal pain today and found to have Sigmoid volvulus and large hiatal hernia. S/p Colonoscopy but was not able to be decompressed. GI recommends emergent surgery. Surgery wanted to transfer to Tertiary care as patient on plavix. Called [facility] and Acute Care Surgery accepted the patient. To be transferred mostly tonight or first thing in the morning as per [facility]. Surgery and GI ok with the plan. Notified patient and he is ok for transfer. Patient currently doing fine. Alert and oriented.Hard of hearing.No pain. Hemodynamics stable.Son notified about the transfer. Assessment and Plan of H and P by admitting physician : 1) Abdominal distention: (2) Volvulus of sigmoid colon: Plan: Abdominal distention Worsened over the past 24 hours. Patient has distention on exam with tenderness. CT abdomen pelvis notable for sigmoid volvulus resulting in high-grade narrowing of the sigmoid colon, large hiatal hernia containing majority of stomach and depression of transverse colon. 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 ER physician had discussed with surgeon who recommended management by GI with endoscopy. Discussed with manager agriculture. Patient being prepped for endoscopic decompression Keep n.p.o. EKG preop Follow-up postop Continue IV fluids Pain control (3) COVID-19: Plan: Patient tested positive for COVID-19. Reports chronic cough, dyspnea on exertion and congestion. Stated that these are not new and has not worsened recently. Will continue to monitor for now No need for COVID-specific therapies. Currently on room air. Airborne precautions. (4) CKD (chronic kidney disease) stage 3, GFR 30-59 ml/min: Plan: Creatinine is stable. Monitor renal function Avoid nephrotoxins. (5) History of CVA (cerebrovascular accident): Plan: Patient on atorvastatin and Plavix at home. Plavix currently on hold in view of procedure. Currently NPO. (6) Asthma: Plan: Stable Continue inhalers (7) Hypertension: Plan: Hold home antihypertensives while npo IV hydralazine prn to control BP 8. UTI received Rocephin one dose to continue on transfer f/u cultures (9) DVT prophylaxis: Plan: Hold off pharmacological agent for now in view of procedure Full code Dispo -PCU or ICU post procedure Total Time Total Time Spent Total Time Spent (In Minutes): 45minutes Discharge Plan Discharge Items Patient Disposition: Transfer Acute Care Hospital Reason For Visit: ABDOMINAL PAIN, HX HIATAL HERNIA Discharge Diagnosis: Sigmoid volvulus Activity: As commented below Activity Comment: As per Sirisha Non-emergency contact: Primary Care Provider Call non-emergency contact if: your symptoms worsen Follow-up/Referrals: Mali Krause MD [Primary Care Provider] - Diet: Nothing by Mouth Addtl Attending Provider Instructions: COVID positive UTI Addtl Manager Recruitment Provider Instructions: Current Inpatient Medications IV fluids Normosol-R 80ml/hr Incruse Ellipta 1puff INH daily Breo Ellipta 1 puff inh daily iv morphine 2mg q 6hrs prn iv hydralazine 5mg q6hrs prn ALL OTHER HOMES HELD. Pending Studies at Discharge: No Stand-Alone Forms: My [facility] [employer] Skilled Items Patient informed of condition?: Yes DNR: No Discharge Level of Care: Other Communicable Disease: Yes Discharge Prognosis: Other Lines: Peripheral IV Urinary Catheter: No Medications and DC Order Prescriptions: Continued citalopram 10 mg tablet 10 mg PO HS Qty: 30 11RF clopidogrel 75 mg tablet 75 mg PO QAM tamsulosin 0.4 mg capsule 0.4 mg PO QAM Qty: 90 atorvastatin 40 mg tablet 40 mg PO QPM amlodipine 5 mg tablet 5 mg PO DAILY Rx Instructions: PER PT "TOOK ONE OF B/P MED THIS AM, NOT SURE WHICH ONE". lisinopril 5 mg tablet 5 mg PO DAILY Rx Instructions: PER PT "TOOK ONE OF B/P MED THIS AM, NOT SURE WHICH ONE". montelukast [Singulair] 10 mg Tablet 10 mg PO HS multivitamin with minerals Tablet 1 tab PO QAM finasteride 5 mg Tablet 5 mg PO HS PreserVision AREDS-2 250-90-40-1 mg Capsule 1 tab PO BID ropinirole 3 mg Tablet 3 mg PO HS Rx Instructions: administer 1-3 hours before bedtime cyanocobalamin (vitamin B-12) [Vitamin B-12] 1,000 mcg Tablet 1,000 mcg PO DAILY omeprazole 20 mg Capsule,Delayed Release(Dr/Ec) 20 mg PO DAILY Dulera 200-5 mcg/actuation Hfa Aerosol Inhaler 2 puff INHALATION BID Spiriva Respimat 2.5 mcg/actuation Mist 2 puff INHALATION DAILY Discharge Orders: Discharge Order (Routine); Ordered 10/25/22 Ordered By: Jad Lopez Admission Data Admit Date/Time: 10/25/22 19:09 Attending Provider: Sissy Delcid Admit Provider: Magda Wright I. Primary Care Provider: Mali Krause Other Providers: Sissy Delcid ; Magda Wright I.
[2022-10-26] MEDS: hydrALAZINE HCL 20 MG/ML VIAL IV PRN ×2 (04:30→11:26)
[2022-10-26 05:11] LABS: Hematocrit (blood only) 40.3 % (40.1-51.0); Hemoglobin 13.1 g/dl (14.0-18.0); Mean Corpuscular Hemoglobin 29.8 pg (25.0-34.0); Mean Corpuscular Hgb Conc 32.5 g/dL (32.0-36.0); Mean Corpuscular Volume 91.8 fL (80.0-100.0); Mean Platelet Volume 9.9 fL (9.4-12.4); Platelet Count 183 K/uL (130-400); RDW Coefficient of Variation 13.8 % (11.5-14.5); RDW Standard Deviation 46.9 fL (36.4-46.3); Red Blood Count 4.39 M/uL (4.63-6.08); White Blood Count 7.91 K/ul (4.8-10.8)
[2022-10-26 05:28] LABS: Albumin Level 3.7 gm/dl (3.4-5.0); Bilirubin,Total 0.6 mg/dl (0.2-1.0); Calcium 8.6 mg/dl (8.5-10.1); Magnesium 1.8 mg/dl (1.7-2.4); Potassium 4.1 mmol/L (3.5-5.1)
[2022-10-26 05:34] LABS: Albumin Globulin Ratio 1.5 (0.9-2); BUN Creatinine Ratio 14.6 (10-20); Est GFR (African American) 52.6 ml/min; Est GFR (Non-African American) 45.4 ml/min; Globulin 2.5 gm/dl (2.5-4.0); Phosphorus 2.5 mg/dl (2.5-4.9); Total Protein 6.2 gm/dl (6.0-8.3)
--- NOTE | 2022-10-26 08:28 | XRay Report ---
XR chest 1V portable HISTORY: Postop. NG tube placement. COMPARISON: Abdomen and pelvis CT 10/25/2022. FINDINGS: There is again noted a large hiatus hernia. Nasogastric tube terminates in the intrathoraci c stomach. Partially visualized distended gas-filled loops of large and small bowel are again noted w ithin the upper abdomen. No pneumoperitoneum. No pneumatosis. Trace left pleural effusion and left ba silar linear densities consistent with subsegmental atelectasis. IMPRESSION: 1. The nasogastric tube appears to be located within the large hiatus hernia/intrathoracic stomach. 2. Distended gas-filled loops of large and small bowel are again noted within the abdomen. ACT 112: Negative or not required by law. Electronically signed by: Thony Taylor M.D. 10/26/2022 8:27 AM
[2022-10-26] MEDS ORDERED: FLUTICASONE/VILANTEROL 200/25MCG 14 PUFFS/INHALER INH SCH (09:00)
[2022-10-26] MEDS ORDERED: UMECLIDINIUM BROMIDE 62.5MCG/BLISTER 7 PUFFS/INHALER INH SCH (09:00)
[2022-10-26] MEDS: NORMOSOL-R 1,000 ML IV SCH (09:11)
--- NOTE | 2022-10-26 09:55 | Electrocardiogram Report ---
Test Reason : Blood Pressure : / mmHG Vent. Rate : 098 BPM Atrial Rate : 098 BPM P-R Int : 254 ms QRS Dur : 092 ms QT Int : 344 ms P-R-T Axes : 069 001 015 degrees QTc Int : 439 ms Poor data quality, interpretation may be adversely affected Sinus rhythm with 1st degree A-V block with Premature atrial complexes with Aberrant conduction Possible Left atrial enlargement Borderline ECG When compared with ECG of 15-MAR-2021 12:38, Aberrant conduction is now Present Confirmed by Talha Medina ([id number]) on 10/26/2022 9:55:18 AM Referred By: REFERRED SELF Confirmed By:Darien Medina
--- NOTE | 2022-10-26 11:57 | Discharge Summary ---
Discharge Summary Date of Service October 26, 2022 Notes For Next Care Provider Transferred to [facility]. Follow up management there Medication Changes From Visit N/A Admission HPI Per Admitting Provider 87-year-old man with history of hypertension, asthma, restless leg syndrome, CKD 3, reported history of CVA 3 years ago who presents with abdominal distention that worsened the past 24 hours. Patient reports that he usually has some swelling around his umbilicus for some time. However, since yesterday night swelling has gotten worse. This is associated with pain. Also reports nausea but no vomiting. Last bowel movement was 2 days ago. Last time he remember passing flatus was yesterday. Reports chronic cough unchanged, chronic exertional dyspnea and intermittent congestion since after stroke some years ago Denied any fevers, chills Denied palpitation, chest pain, shortness of breath at rest. Denied any headache, dizziness Reports some hesitancy that started a few days ago. Denied dysuria, freq, hematuria, incontinence Family history notable for mother from Alzheimer's, sister had a brain tumor. 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 Patient denied alcohol use, cigarette smoking or illicit drug use. Admission Exam Per Admitting Provider Constitutional: + well hydrated; no acute distress Eyes: PERRL, conjunctivae normal, anicteric sclerae ENMT: external ear and nose normal, oropharynx normal Respiratory: normal respiratory effort, lungs clear to auscultation Cardiovascular: Rate/Rhythm: regular rate and regular rhythm S1 S2 Gastrointestinal (Abdomen): Firm, distended, tender, reduced bowel sounds Musculoskeletal: no cyanosis or clubbing, extremities motor strength 5/5 Neurologic: PERRL, EOMI, accommodation nl, no face palsy, no dysarthria Psychiatric: A+Ox3, euthymic affect Genitourinary: [place] in situ Principal Dx & Hospital Course #1 = Principal Diagnosis (1) Sigmoid volvulus: Plan 87M presented with abdominal pain and found to have Sigmoid volvulus and large hiatal hernia. (1) Abdominal distention: (2) Volvulus of sigmoid colon: Abdominal distention Worsened over the past 24 hours. On presentation, patient has distention on exam with tenderness. CT abdomen pelvis notable for sigmoid volvulus resulting in high-grade narrowing of the sigmoid colon, large hiatal hernia containing majority of stomach and depression of transverse colon. 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 Attempts are decompression via colonoscopy was unsuccessful Patient accepted for transfer to [facility] for surgical evaluation and man agement Keep n.p.o. Pain controlled (3) COVID-19: Patient tested positive for COVID-19. Reports chronic cough, dyspnea on exertion and congestion. Stated that these are not new and has not worsened recently. Airborne precautions. (4) CKD (chronic kidney disease) stage 3, GFR 30-59 ml/min: Creatinine is stable. Avoid nephrotoxins. (5) History of CVA (cerebrovascular accident): Plan: Patient on atorvastatin and Plavix at home. Plavix currently on hold in view of procedure. Currently NPO. (6) Asthma: Plan: Stable Continue inhalers (7) Hypertension: Hold home antihypertensives while npo (8) UTI Received Rocephin one dose Continue on transfer Urine culture growing GNR Discharge Exam Constitutional + well hydrated; no acute distress Eyes PERRL, conjunctivae normal, anicteric sclerae ENMT external ear and nose normal, oropharynx normal NGT in situ Respiratory normal respiratory effort, lungs clear to auscultation Cardiovascular Rate/Rhythm: regular rate and regular rhythm S1 S2 Gastrointestinal (Abdomen) Firm, distended, tender, hypoactive bowel sounds, no guarding Musculoskeletal no cyanosis or clubbing, extremities motor strength 5/5 Neurologic PERRL, EOMI, accommodation nl, no face palsy, no dysarthria Psychiatric A+Ox3, euthymic affect Updated Medication List Medication Instructions Recorded Confirmed Type clopidogrel 75 mg tablet 75 mg PO QAM 07/09/19 10/25/22 History tamsulosin 0.4 mg capsule 0.4 mg PO QAM #90 caps 07/09/19 10/25/22 History finasteride 5 mg tablet 5 mg PO HS 03/15/21 10/25/22 History montelukast 10 mg tablet 10 mg PO HS 03/15/21 10/25/22 History (Singulair) multivitamin with minerals 1 tab PO QAM 03/15/21 10/25/22 History vit C 250 mg-vit E 90 mg-zinc 40 1 tab PO BID 03/15/21 10/25/22 History mg-copper 1 [id number] capsule (PreserVision AREDS-2) amlodipine 5 mg tablet 5 mg PO DAILY 07/28/21 10/25/22 History atorvastatin 40 mg tablet 40 mg PO QPM 07/28/21 10/25/22 History lisinopril 5 mg tablet 5 mg PO DAILY 07/28/21 10/25/22 History citalopram 10 mg tablet 10 mg PO HS #30 tabs 09/01/21 10/25/22 Rx tiotropium bromide 2.5 2 puff inhalation DAILY 01/24/22 10/25/22 History mcg/actuation mist for inhalation (Spiriva Respimat) cyanocobalamin (vitamin B-12) 1,000 mcg PO DAILY 10/25/22 10/25/22 History 1,000 mcg tablet (Vitamin B-12) mometasone-formoterol HFA 200 2 puff inhalation BID 10/25/22 10/25/22 History mcg-5 mcg/actuation aerosol inhaler (Dulera) omeprazole 20 mg capsule,delayed 20 mg PO DAILY 10/25/22 10/25/22 History release ropinirole 3 mg tablet 3 mg PO HS 10/25/22 10/25/22 History Hospital Stay Data Consultations 10/25/22 18:11 Consult Gastroenterology Stat ED Decision to Admit Stat Procedures Performed Operation Date: 10/25/22 18:10 Actual Procedures p Colonoscopy(Not Applicable) - Sissy Delcid, Diagnostic Imagining Performed 10/25/22 15:17 CT abd pelvis IV con only Stat Pending Results Patient Have Any Pending Studies at Discharge: No Discharge Instructions Given to Patient (Per Discharging Provider) COVID positive UTI Total Time Total Time Spent Total Time Spent (In Minutes): 35 Total Time Includes: Examination of the Patient, Discharge Planning, Medication Reconciliation and Communication With Other Providers
--- NOTE | 2022-10-26 12:12 | Communication Note ---
Date of Service: October 26, 2022 Patient with sigmoid volvulus and multiple medical problems including large hiatal hernia and on Plavix. Stop by to see patient, however patient recently transferred to [place] per the plan.
== END 2022-10-26 11:15 | disposition short-term general hospital (02) | DRG 388 ==
LOC: ED 14:04 → OR 19:08 → SUATTDRO 19:09 → 1E 19:09 → OR 19:35
DX: J45.909 Unspecified asthma, uncomplicated; I12.9 Hypertensive chronic kidney disease with stage 1 through stage 4 chronic kidney disease, or unspecified chronic kidney disease; Z79.899 Other long term (current) drug therapy; Z86.73 Personal history of transient ischemic attack (TIA), and cerebral infarction without residual deficits; Z88.2 Allergy status to sulfonamides; N39.0 Urinary tract infection, site not specified; N18.30 Chronic kidney disease, stage 3 unspecified; K56.2 Volvulus; U07.1 COVID-19; K44.9 Diaphragmatic hernia without obstruction or gangrene; Z79.01 Long term (current) use of anticoagulants